=== PATIENT | female | born 1945 | race Caucasian/White ===

== ENCOUNTER 2016-09-08 12:19 | Inpatient (IN) ==
--- NOTE | 2016-09-08 12:22 | Emergency Department Report ---
Psych HPI - General Stated Complaint: psych screening-stiff and humming Time Seen by Provider: 09/08/16 12:22 Source: EMS, RN notes reviewed, old records reviewed Mode of arrival: EMS Limitations: altered mental status - History of Present Illness HPI Narrative: Patient is a 70-year-old female presents emergency department for evaluation of homing rigidity. Patient history of schizophrenia, apparently has episodes where she becomes unresponsive and rigid and just homes constantly to herself. [facility] states that she's been in the assisted for approximately 30 years and happens off and on, however sometimes patient can do this for up to 2- 3 days. Patient apparently is due to have a Holter monitor due to questionable irregularity of heart rate, patient was "stressed", and then was seen normally at 6:30 this morning and was found lying on a pillow on the floor at 9:30 in this state state. It was decided to send patient for evaluation for generations admit. MD complaint: altered mental status Onset (ago): hour(s) Duration: constant - Related Data Home Medications Medication Instructions Recorded Confirmed Benztropine Mesylate 1 mg PO BID #0 08/19/12 09/08/16 Docusate Sodium [Colace] 100 mg PO BID #0 08/19/12 09/08/16 Quetiapine Fumarate 100 mg PO BID #0 08/19/12 09/08/16 Simvastatin 20 mg PO HS #0 08/19/12 09/08/16 clonazePAM [Clonazepam] 1 mg PO BID #0 08/19/12 09/08/16 raNITIdine HCl [Ranitidine HCl] 150 mg PO DAILY #0 08/19/12 09/08/16 risperiDONE [Risperidone] 4 mg PO BID #0 08/19/12 09/08/16 Acetaminophen 650 mg PO Q4HR PRN 09/08/16 09/08/16 Ascorbate Calcium [Vitamin C] 500 mg PO DAILY 09/08/16 09/08/16 Calcium Carbonate [[id number]] 500 mg PO DAILY 09/08/16 09/08/16 ClonazePAM [Klonopin] 1 mg PO PRN PRN 09/08/16 09/08/16 Guaifenesin Oral Liq [Robitussin] 5 ml PO Q6HR PRN 09/08/16 09/08/16 Loratadine [Claritin] 10 mg PO DAILY PRN 09/08/16 09/08/16 Mag Hydrox/Aluminum Hyd/Simeth 30 ml PO PRN PRN 09/08/16 09/08/16 [Maalox Advanced Suspension] Metformin [Glucophage] 500 mg PO BID 09/08/16 09/08/16 Milk of Magnesia [Mom] 30 ml PO DAILY PRN 09/08/16 09/08/16 Multivit,Calc,Mins/Iron/Folic 1 tab PO DAILY 09/08/16 09/08/16 [Thera-M Tablet] Vit D3/Folic Acid/B2/B6/B12 1 tab PO DAILY 09/08/16 09/08/16 [Folgard Tablet] Allergies Allergy/AdvReac Type Severity Reaction Status Date / Time No Known Allergies Allergy Unknown Verified 08/19/12 11:04 Review of Systems Limitations: ROS unobtainable due to patient's medical condition PFSH Patient Stated Medical History Cataracts Yes Gastroesophageal Reflux Yes Disease Schizophrenia Yes Physical Exam - Limitations Limitations: altered mental status - Normal Exams: Head:: Normocephalic without trauma - Eye Eye exam: Present: normal appearance, PERRL - Neck Neck exam: Present: normal inspection - Chest Chest inspection: Present: normal inspection, symmetric chest wall rise. Absent : tenderness - Respiratory Respiratory exam: Present: normal lung sounds bilaterally. Absent: respiratory distress, wheezes, stridor - Cardiovascular Cardiovascular exam: Present: regular rate, normal rhythm. Absent: bradycardia , tachycardia, irregular rhythm - Abdominal Exam Abdominal exam: Present: soft, normal bowel sounds. Absent: distention - Skin Skin exam: Present: warm, dry - Neurological Exam Neurological exam: Absent: alert Course Vital Signs Temperature 98.9 F 09/08/16 12:20 Pulse Rate 89 09/08/16 12:20 Respiratory Rate 32 H 09/08/16 12:20 Blood Pressure 137/63 09/08/16 12:20 Pulse Oximetry 95 09/08/16 12:20 Temperature 98.9 F 09/08/16 12:20 Pulse Rate 88 09/08/16 14:30 Respiratory Rate 32 H 09/08/16 12:20 Blood Pressure 141/102 H 09/08/16 13:01 Pulse Oximetry 91 09/08/16 14:30 Psych - Differential Diagnosis Likely: acute psychosis, chronic schizophrenia, drug-induced psychotic disorder , acute anxiety - Medical Records Attestation: I reviewed the patient's medical records. - Lab Data Attestation: I reviewed the patient's lab results. Result diagrams: 09/08/16 12:54 09/08/16 12:54 Lab Results 09/08/16 09/08/16 09/08/16 Range/Units 12:54 12:54 14:13 WBC 11.0 (4.5-11.0) T/MM3 RBC 4.27 (4.00-5.20) M/MM3 Hgb 13.9 (12-16) GM/DL Hct 40.8 (36-46) % MCV 95.6 (80-100) UM3 MCH 32.6 (26-34) UUG MCHC 34.1 (31-37) GM/DL RDW Std Deviation 42.9 (36.9-50.2) FL Plt Count 251 (130-400) T/MM3 MPV 10.1 (9.4-12.4) UM3 Immature Gran % (Auto) Not performed Neut % (Auto) Not performed Lymph % (Auto) Not performed [place]hen[place] % (Auto) Not performed Eos % (Auto) Not performed Baso % (Auto) Not performed Neut # Not performed Lymph # Not performed Mchenry # Not performed Baso # Not performed Abs Immat Gran (auto) Not performed Neutrophils % (Manual) 86.0 H (33-66) % Band Neutrophils % 2.0 (0-6) % Lymphocytes % (Manual) 11.0 L (23-45) % Monocytes % (Manual) 1.0 (0-9.0) % Neutrophils # (Manual) 9.5 H (1.8-7.7) T/MM3 Band Neutrophils # 0.2 T/MM3 Lymphocytes # (Manual) 1.2 (1-4.8) T/MM3 Monocytes # (Manual) 0.1 (0-0.8) T/MM3 RBC Morph Comment Normal Turbidity < 20 (0-20) Sodium 143 (134-144) MEQ/L Potassium 3.8 (3.6-5) MEQ/L Chloride 108 H (98-107) MEQ/L Carbon Dioxide 24 (22-30) MEQ/L Anion Gap 11 (5-15) MEQ/L BUN 15.0 (7-17) MG/DL Creatinine 0.6 L (0.7-1.2) MG/DL GFR Calculation 99 BUN/Creatinine Ratio 25 (6-26) RATIO Glucose 111 H (65-110) MG/DL Calculated Osmolality 277 (261-280) MOSM/KG Calcium 8.9 (8.4-10.2) MG/DL Total Bilirubin 0.40 (0.20-1.30) MG/DL Icterus Index < 2 (0-7) AST 27 (14-36) U/L ALT 38 (9-52) U/L Alkaline Phosphatase 97 (38-126) U/L Total Protein 7.0 (6.3-8.2) G/DL Albumin 4.1 (3.5-5.0) G/DL Globulin 2.9 (2.4-3.6) G/DL Albumin/Globulin Ratio 1.4 (1.1-2.2) RATIO Specimen Hemolysis < 15 (0-25) Ur Collection Type Urine, clean catch Urine Color Yellow (YELLOW) Urine Clarity Clear Urine pH 6.5 (5.0-8.0) Ur Specific [place] 1.020 (1.015-1.025) Urine Protein Negative (NEGATIVE) Urine Glucose (UA) Negative (NEGATIVE) Urine Ketones 1+ A (NEGATIVE) Urine Occult Blood Negative (NEGATIVE) Urine Nitrate Negative (NEGATIVE) Urine Bilirubin Negative (NEGATIVE) Urine Urobilinogen 0.2 (NORMAL) EU/DL Ur Leukocyte Esterase Negative (NEGATIVE) Urinalysis Comment Microscopic not ind. - Radiology Data Attestation: I reviewed the patient's radiology results. CT head without contrast: Normal Two-view chest x-ray, foreign body left breast chronic - ECG Data Tracing #1 Normal rhythm, normal axis, normal rate, normal intervals, no acute ST elevations Disposition Clinical Impression: Chronic schizophrenia Disposition: 66 To [facility] [place] [facility] Condition: Stable Prescriptions: No Action raNITIdine HCl [Ranitidine HCl] 150 mg PO DAILY #0 clonazePAM [Clonazepam] 1 mg PO BID #0 risperiDONE [Risperidone] 4 mg PO BID #0 Quetiapine Fumarate 100 mg PO BID #0 Guaifenesin Oral Liq [Robitussin] 5 ml PO Q6HR PRN PRN Reason: Cough Acetaminophen 650 mg PO Q4HR PRN PRN Reason: Pain Milk of Magnesia [Mom] 30 ml PO DAILY PRN PRN Reason: Constipation Loratadine [Claritin] 10 mg PO DAILY PRN PRN Reason: Allergy Symptoms ClonazePAM [Klonopin] 1 mg PO PRN PRN PRN Reason: Agitation Calcium Carbonate [[id number]-[id number]] 500 mg PO DAILY Vit D3/Folic Acid/B2/B6/B12 [Folgard Tablet] 1 tab PO DAILY Benztropine Mesylate 1 mg PO BID #0 Docusate Sodium [Colace] 100 mg PO BID #0 Simvastatin 20 mg PO HS #0 Ascorbate Calcium [Vitamin C] 500 mg PO DAILY Metformin [Glucophage] 500 mg PO BID Multivit,Calc,Mins/Iron/Folic [Thera-M Tablet] 1 tab PO DAILY Mag Hydrox/Aluminum Hyd/Simeth [Maalox Advanced Suspension] 30 ml PO PRN PRN PRN Reason: Gastrointestinal Upset Referrals: Everette Mclean [Primary Care Provider] - Time of Disposition: 15:28 - Seen By: physician
[2016-09-08] MEDS ORDERED: HALOPERIDOL 5 MG TABLET PO ONE (12:35)
[2016-09-08] MEDS ORDERED: HALOPERIDOL 5 MG/ML INJECTION IM ONE (12:42)
--- NOTE | 2016-09-08 13:41 | CT Scan Report ---
Indication: acutely altered mental status question fall PROCEDURE: CT head/brain wo con: Encounter: Initial Comparison: Head CT dated August 19, 2012 Technique: Axial CT images through the head were performed without contrast. Iterative Reconstruction dose reducing technique was utilized. FINDINGS: The ventricles are of normal size, shape, and contour for the patient's age. There are scattered areas of low attenuation in the white matter which most likely represent changes from chronic microvascular ischemia. The brainstem, cerebellum, and cerebral hemispheres otherwise have a normal morphology and CT attenuation. There is no evidence of midline displacement. No hemorrhage, signs of acute territorial stroke, mass effect, mass lesions, or edema is evident. The visualized portions of the skull base, midface, and calvarium demonstrate no acute abnormality. Hyperostosis frontalis interna. The paranasal sinuses are well aerated and free of significant disease. The tympanic and mastoid cavities appear normal. IMPRESSION: No acute intracranial abnormality or hemorrhage. .
--- NOTE | 2016-09-08 14:10 | XRay Report ---
INDICATION: question foreign body PROCEDURE: CHEST 2-VIEWS UPRIGHT (PA & LAT) Encounter: Initial COMPARISON: Chest x-ray dated August 19, 2012 FINDINGS: Lungs show evidence of emphysema. No consolidative pneumonia, pleural effusion or pneumothorax. Heart size and mediastinal contours are stable. Pulmonary vascularity is normal. Severe degenerative change in the left shoulder. Linear metallic foreign body apparently representing a nail is again seen projecting over the left chest. This measures 2.8 cm in length and is seen within the subcutaneous tissues on the lateral view. This is stable in size and appearance dating back to 2012. Impression: Metallic foreign body in the subcutaneous tissues of the left chest wall, grossly unchanged since 2012. .
[2016-09-08] MEDS ORDERED: LORazepam 0.5 MG TABLET PO PRN ×2 (17:08→17:36)
[2016-09-08] MEDS ORDERED: HALOPERIDOL 0.5 MG TABLET PO PRN (17:08)
[2016-09-08] MEDS ORDERED: HALOPERIDOL 5 MG/ML INJECTION IM PRN (17:08)
[2016-09-08] MEDS ORDERED: LORATADINE 10 MG TABLET PO PRN (17:33)
[2016-09-08] MEDS ORDERED: GUAIFENESIN 200mg/10ml ORAL LIQUID PO PRN (17:33)
[2016-09-08] MEDS ORDERED: MAG-AL + SIM ORAL LIQUID 30ml PO PRN (17:33)
[2016-09-08] MEDS: DOCUSATE SODIUM 100 MG CAPSULE PO SCH (21:26)
[2016-09-08] MEDS: METFORMIN 500 MG TABLET PO SCH (21:26)
[2016-09-08] MEDS: BENZTROPINE 1 MG TABLET PO SCH (21:26)
[2016-09-08] MEDS: RisperiDONE 2 MG TABLET PO SCH (21:27)
[2016-09-08] MEDS: ClonazePAM 1 MG TABLET PO SCH (21:27)
[2016-09-09] MEDS ORDERED: ACETAMINOPHEN 650 MG SUPPOSITORY PR PRN (05:26)
[2016-09-09] MEDS ORDERED: FUROSEMIDE 20 MG TABLET PO SCH (09:00)
[2016-09-09] MEDS ORDERED: ASCORBIC ACID 500 MG TABLET PO SCH (09:00)
[2016-09-09] MEDS ORDERED: MAG-AL + SIM ORAL LIQUID 30ml PO PRN (10:39)
--- NOTE | 2016-09-09 11:11 | History & Physical Report ---
<Jessica Bellamy - Last Filed: 09/09/16 11:08> History of Present Illness Date: 09/09/16 Chief complaint: decreased mental status HPI: Cherelle Bone is a 70-year-old woman who was admitted to [facility] on for catatonia. She has a history of schizophrenia and has had episodes in which she becomes unresponsive and rigid. These episodes have occurred intermittently for the last 30 years, but sometimes he states can last up to 3 days. In the morning of 09/08/16, she was found to be in her catatonic-type state , and was sent to [facility] for medical clearance and admission to [facility]. She was seen initially in the emergency department. CBC was normal , however, she did have a predominance of neutrophils at 86%. Complete metabolic profile was essentially unremarkable. Her TSH was actually low at 0.30 - levothyroxine was not identified on her medication list. Urinalysis showed 1+ ketones, but no UTI. Chest x-ray showed emphysema, degenerative changes in the left shoulder, and a chronic metallic foreign body in the left chest wall, which has been present since 2012. No noted acute pulmonary pathology. Head CT was negative for intracranial abnormality or hemorrhage. With her medical clearance, she was accepted to [facility]. She was seen by the hospitalist team on 09/09/16. She was lying in bed with her brows furloughed. Occasionally, she would moan but she did not answer anything spontaneously or follow any commands. She resisted and closed her eyes tight when I try to examine her pupils. Obviously, review of systems and history of present illness was severely limited. Nurses report that she has removed her clothing and does not tolerate blankets covering her up. 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 Family History: Unobtainable from patient Not documented in previous documents - Social History Smoking status: Unknown if ever smoked Substance use type: does not use Alcohol intake frequency: does not drink Current residence: Detention Medications Home Medications Medication Instructions Recorded Confirmed Type Benztropine Mesylate 1 mg PO BID #0 08/19/12 09/08/16 History Docusate Sodium [Colace] 200 mg PO BID #0 08/19/12 09/09/16 History Quetiapine Fumarate 100 mg PO BID #0 08/19/12 09/08/16 History Simvastatin 20 mg PO HS #0 08/19/12 09/08/16 History clonazePAM [Clonazepam] 1 mg PO DAILY #0 08/19/12 09/09/16 History raNITIdine HCl [Ranitidine HCl] 150 mg PO DAILY #0 08/19/12 09/08/16 History risperiDONE [Risperidone] 4 mg PO BID #0 08/19/12 09/08/16 History Acetaminophen 650 mg PO Q4HR PRN 09/08/16 09/08/16 History Ascorbate Calcium [Vitamin C] 500 mg PO BID 09/08/16 09/09/16 History Calcium Carbonate [[id number]-[id number]] 500 mg PO DAILY 09/08/16 09/08/16 History ClonazePAM [Klonopin] 1 mg PO PRN PRN 09/08/16 09/08/16 History Furosemide [Lasix] 1 tab PO QMWF 09/08/16 09/08/16 History Guaifenesin Oral Liq [Robitussin] 5 ml PO Q6HR PRN 09/08/16 09/08/16 History Loratadine [Claritin] 10 mg PO DAILY PRN 09/08/16 09/08/16 History Mag Hydrox/Aluminum Hyd/Simeth 30 ml PO Q4H PRN 09/08/16 09/09/16 History [Maalox Advanced Suspension] Metformin [Glucophage] 500 mg PO BIDWM 09/08/16 09/09/16 History Milk of Magnesia [Mom] 30 ml PO DAILY PRN 09/08/16 09/08/16 History Multivit,Calc,Mins/Iron/Folic 1 tab PO DAILY 09/08/16 09/08/16 History [Thera-M Tablet] Cholecalciferol (Vitamin D3) 2 cap PO DAILY 09/09/16 09/09/16 History [Vitamin D3] Allergies Allergy/AdvReac Type Severity Reaction Status Date / Time No Known Allergies Allergy Unknown Verified 08/19/12 11:04 Exam Vital Signs: Temp Pulse Resp BP Pulse Ox 98.6 F 80 16 148/67 H 90 09/09/16 08:00 06/14/17 08:00 09/09/16 08:00 09/09/16 08:00 09/09/16 08:00 Height: 1.7 m Weight: 72.1 kg Body Mass Index: 24.9 - Constitutional Present: other (patient is verbally unresponsive, does not follow commands. Occasionally, she moans. She was lying naked in bed, and a blanket was placed on top of her.) - Routine HEENT Exam Head: Present: normocephalic, atraumatic ENT: Present: mucous membranes dry (unable to inspect mucous membranes fully, but from what I could tell from her lips and the anterior portion of her tongue , she was dry) Comments: I was unable to easily open her eyes to examine conjunctivae and pupillary response because she closed her eyes tighter. - Routine Neck Exam Present: supple - Routine Respiratory Exam Present: CTA bilaterally - Routine Cardiovascular Exam Present: RRR, S1, S2 - Routine Abdominal Exam Present: soft, normoactive bowel sounds, non distended, non tender - Routine Extremities Exam Present: no edema, pulses intact, normal capillary refill - Routine Skin Exam Present: intact, dry, warm - Routine Neurological Exam Present: altered mental status. Absent: alert, oriented X3 - Routine Psychiatric Exam Present: unable to assess Results - Labs CBC & Chem 7: 09/08/16 12:54 09/08/16 12:54 Assessment and Plan (1) Dehydration Current visit: Yes Status: Acute (2) Chronic schizophrenia Current visit: Yes Status: Chronic (3) Type 2 diabetes mellitus Current visit: Yes Status: Chronic Assessment and Plan: Agree with admission to [facility]. Continue with obtaining [facility] workup. Labs and images reviewed. She appears slightly dehydrated, at least based on urine sample. Will hold Lasix since she is not taking in fluids currently. Hold Glucophage since she is not eating; monitor sugars. If she does not begin taking in oral fluids today, would recommend placement of an IV with continuous IV fluids. Check BMP tomorrow morning. Discussed with nursing staff. They will inquire about starting treatment protocol for catatonia. Provide safe environment. Thank you for this consult - we will follow Cherelle along with you during her [place] course. Sepsis Assessment - Evaluation Sepsis screening result: No Definite Risk - Focused Exam Vital Signs Temp Pulse Resp BP Pulse Ox 09/09/16 08:00 98.6 F 80 16 148/67 H 90 Hospital Course Summary Disclaimer: The visit summary below is not to be considered part of the above Progress Note. Hospital Course: 09/09/16 11:29 Agree with admission to [facility]. Continue with obtaining [facility] workup. Labs and images reviewed. She appears slightly dehydrated, at least based on urine sample. Will hold Lasix since she is not taking in fluids currently. Hold Glucophage since she is not eating; monitor sugars. If she does not begin taking in oral fluids today, would recommend placement of an IV with continuous IV fluids. Check BMP tomorrow morning. Discussed with nursing staff. They will inquire about starting treatment protocol for catatonia. Provide safe environment. Thank you for this consult - we will follow Cherelle along with you during her [place] course. <Kelsie Rai - Last Filed: 09/09/16 18:46> History of Present Illness Date: 09/09/16 [facility] Patient Stated Medical History Cataracts Yes Gastroesophageal Reflux Yes Disease Schizophrenia Yes Exam Vital Signs: Temp Pulse Resp BP Pulse Ox 98.2 F 72 18 118/66 92 09/09/16 16:54 09/09/16 16:54 09/09/16 16:54 09/09/16 16:54 09/09/16 16:54 Height: 1.7 m Weight: 72.1 kg Results - Labs CBC & Chem 7: 09/08/16 12:54 09/08/16 12:54 Assessment and Plan (1) Chronic schizophrenia Current visit: Yes Status: Chronic (2) Dehydration Current visit: Yes Status: Acute (3) Type 2 diabetes mellitus Current visit: Yes Status: Chronic Assessment and Plan: 09/09/2016-I reviewed this chart, the patient history, and the [employer]'s/PA's documented findings as above. We discussed and formulated the assessment and plan as above with the additions below.-Dr. Rai I came to see the patient earlier this evening. Fortunately, she had awoken and was feeling well. She was sitting up in bed eating her supper. She denied any complaints except being hungry. She denies any headache, chest pain or abdominal pain. She denied any shortness of breath or lightheadedness. She stated she just wanted to eat. I spoke with her nurse and she stated that the patient's symptoms improved without any treatment. On exam the patient is alert and in no acute distress. HEENT reveals sclerae to be anicteric and pupils are equal. Oropharynx is moist. Neck is supple. Chest is clear to auscultation. Cardiovascular reveals a regular rate and rhythm. Abdomen is soft and nontender with positive bowel sounds. Extremities are free of edema. On neurologic exam the patient is alert and in no acute distress. She moves all 4 extremities on command Fortunately, the patient is no longer catatonic. Would recommend discontinuation of IV fluids 1 current bag is empty or if she is refusing, IV fluids can be stopped. We'll monitor Accu-Cheks. We will continue to follow along with you. For this consultation. Sepsis Assessment - Focused Exam Vital Signs Temp Pulse Resp BP Pulse Ox 09/09/16 16:54 98.2 F 72 18 118/66 92 09/09/16 16:00 98.2 F 72 18 118/66 92 09/09/16 08:00 98.6 F 80 16 148/67 H 90 Hospital Course Summary Disclaimer: The visit summary below is not to be considered part of the above Progress Note.
[2016-09-09] MEDS: CALCIUM CARBONATE 500 MG TABLET PO SCH (12:42)
[2016-09-09] MEDS: BENZTROPINE 1 MG TABLET PO SCH ×2 (12:42→21:56)
[2016-09-09] MEDS: METFORMIN 500 MG TABLET PO SCH (12:42)
[2016-09-09] MEDS: FOLBIC TABLET PO SCH (12:43)
[2016-09-09] MEDS: MULTI-VITAMIN + MINERAL TABLET PO SCH (12:43)
[2016-09-09] MEDS: RisperiDONE 2 MG TABLET PO SCH ×2 (12:43→21:56)
[2016-09-09] MEDS: ClonazePAM 1 MG TABLET PO SCH (12:44)
[2016-09-09] MEDS: DOCUSATE SODIUM 100 MG CAPSULE PO SCH ×2 (12:44→21:56)
[2016-09-09] MEDS: NS 1,000 ML IV SCH (15:15)
[2016-09-09] MEDS: ASCORBIC ACID 500 MG TABLET PO SCH (21:56)
[2016-09-09] MEDS ORDERED: RANITIDINE 150 MG TABLET PO SCH (22:00)
--- NOTE | 2016-09-09 22:21 | 24 Hour Neuropsychiatic Eval ---
Date of Admission: 09/08/16 15:33 Chief complaint: Suspected catatonia History of Present Illness: Patient is a 70-year-old female admitted to [facility] on with catatonia-like features, sent from her NH. Per reports, patient laid in bed and did not respond to attempts at interview, refused PO meds/food, etc. upon admission. Hospitalist was consulted and started IV fluids on 09/09, Rice was placed for urinary retention as well. This evening when I attempted to see her, patient was sitting up in bed and greeted me with a bright affect, shaking hands and pleasantly making conversation. She was oriented to self only, stating we are [place]." She reported feeling well physically as well as emotionally. She denied SI , HI, AVH, paranoia. She stated she felt she could try to take meds or eat now. Patient states odd things such as she's had "quite a rugged time the alst few years" but says she just needed a rest and couldn't stand the bright lights in the other hospital. 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 Family History: Unable to obtain currently - Social History Smoking status: Unknown if ever smoked Housing: intermediate Current residence: Jail Social history: States she does not have any children Review of Systems ROS unobtainable: due to mental status (Denies pain or feeling physically uncomfortable anyway, no stiffness/rigidity appreciated upon physical exam) Mental Status Exam Vitals: Last Vital Signs Temp 98.5 F 09/09/16 20:52 Pulse 76 09/09/16 20:52 Resp 18 09/09/16 20:52 BP 131/73 09/09/16 20:52 Pulse Ox 94 09/09/16 20:52 Height: 1.7 m Weight: 72.1 kg - Mental Status Exam Muscle Strength/Tone: Normal Dressing: Casual Grooming: Disheveled Attitude: Cooperative (intermittent) Motor Activity: Other (intermittent - earlier appeared catatonic, fidgety with legs at tie of interview) Eye Contact: Other (intermittent - good upon later interview) Speech: Normal Volume: Normal Rhythm: Appropriate Rhythm Orientation: Disoriented to time, Disoriented to place, Disoriented to situation , Oriented to person Mood: Euthymic Rate of Thoughts: Appropriate Rate Thought Organization: Disorganized Associations: Illogical Abstract Reasoning: Impaired, concrete Thought Content: Hyper-religiosity (suspected), Other (Denies paranoia) Perception/Psychotic: Other (unclear at this point though patient denies) Language: Naming Intact Fund of Knowledge: Other (Decreased) Memory: Poor-immediate, Poor-recent, Poor-remote Suicidal Ideation: Denies Homicidal Ideation: Denies Insight: Impaired Judgement: Impaired Impulse Control: Poor - Laboratory Result Diagrams: 09/08/16 12:54 09/08/16 12:54 Laboratory Results - last 24 hr 09/09/16 09/09/16 09/09/16 06:28 10:18 14:43 Glucometer 110 109 95 09/09/16 20:31 Glucometer 86 Assessment and Plan (1) Schizophrenia spectrum disorder with psychotic disorder type not yet determined Current visit: Yes Status: Chronic r/o Neurocognitive disorder (2) Dehydration Current visit: Yes Status: Acute (3) Type 2 diabetes mellitus Current visit: Yes Status: Chronic Held Seroquel upon admission, continued Risperdal as well as other medications. Maintain safety/elopement precautions. Hospitalist consulted for management of medical comorbidities. Review labs from admission. Monitor patient's mood, behavior and response to treatment. Obtain further collateral if possible.
[2016-09-10] MEDS: SALINE FLUSH 10ml SYRINGE IV PRN ×2 (01:20→18:43)
[2016-09-10] MEDS: NS 1,000 ML IV SCH (01:27)
[2016-09-10] MEDS: BENZTROPINE 1 MG TABLET PO SCH ×3 (08:39→20:16)
[2016-09-10] MEDS: RANITIDINE 150 MG TABLET PO SCH (08:39)
[2016-09-10] MEDS: MULTI-VITAMIN + MINERAL TABLET PO SCH (08:40)
[2016-09-10] MEDS: DOCUSATE SODIUM 100 MG CAPSULE PO SCH ×2 (08:40→20:17)
[2016-09-10] MEDS: CALCIUM CARBONATE 500 MG TABLET PO SCH (08:41)
[2016-09-10] MEDS: ClonazePAM 1 MG TABLET PO SCH (08:43)
[2016-09-10] MEDS: ASCORBIC ACID 500 MG TABLET PO SCH ×2 (08:44→20:19)
[2016-09-10] MEDS: RisperiDONE 2 MG TABLET PO SCH ×2 (08:45→20:18)
[2016-09-10] MEDS: FOLBIC TABLET PO SCH (08:52)
--- NOTE | 2016-09-10 13:23 | Progress Note ---
Subjective: Cherelle was seen during breakfast - she was nearly done eating. She woke up last evening and has been eating and drinking and voiding without problems. Nurses report that she was singing and in good spirits. She's been walking well with a steady gait. Cherelle didn't have much to say this morning but denied any pain or trouble breathing. She stated that her food was good. Objective Vital signs: Temp Pulse Resp BP Pulse Ox 98.2 F 73 16 124/56 95 09/10/16 08:00 09/10/16 08:00 09/10/16 08:00 09/10/16 08:00 09/10/16 08:00 Body Mass Index: 24.9 - Constitutional Present: no acute distress, well nourished, well developed - Routine HEENT Exam ENT: Present: mucous membranes moist - Routine Respiratory Exam Present: CTA bilaterally - Routine Cardiovascular Exam Present: RRR, S1, S2 - Routine Abdominal Exam Present: soft, normoactive bowel sounds, non distended - Routine Extremities Exam Present: no edema, pulses intact, normal capillary refill - Routine Musculoskeletal Exam Musculoskeletal: no clubbing or cyanosis, moving extremities well - Routine Skin Exam Present: intact, dry, warm - Routine Neurological Exam Present: alert, oriented X3 - Routine Psychiatric Exam Present: normal affect Results - Labs CBC & Chem 7: 09/08/16 12:54 09/10/16 04:47 Assessment and Plan (1) Dehydration Current visit: Yes Status: Resolved (2) Chronic schizophrenia Current visit: Yes Status: Chronic (3) Type 2 diabetes mellitus Current visit: Yes Status: Chronic Assessment and Plan: Her catatonic state has resolved and she is able to maintain oral intake and hydration status. Dehydration is improving with oral intake. Her sodium level is minimally elevated, consistent with dehydration. She received 1L of IVF yesterday. Urine retention - required straight catheterization yesterday and had >900 mL urine return. She has been able to void spontaneously now and her post void residual bladder scan was too low to require cath. DM2 - blood sugars are stable. Resume Metformin tomorrow am. HTN - her Lasix has been on hold since she was dehydrated at time of admission. Her BP has been stable. Likely can restart Lasix soon. Dr. Faye's notes reviewed. Sepsis Assessment - Evaluation Sepsis screening result: No Definite Risk - Focused Exam Vital Signs Temp Pulse Resp BP Pulse Ox 09/10/16 08:00 98.2 F 73 16 124/56 95 Respiratory exam: Present: CTA bilaterally Cardiovascular exam: Present: RRR, S1, S2 Hospital Course Summary Disclaimer: The visit summary below is not to be considered part of the above Progress Note. Hospital Course: 09/09/16 11:29 Agree with admission to [facility]. Continue with obtaining [facility] workup. Labs and images reviewed. She appears slightly dehydrated, at least based on urine sample. Will hold Lasix since she is not taking in fluids currently. Hold Glucophage since she is not eating; monitor sugars. If she does not begin taking in oral fluids today, would recommend placement of an IV with continuous IV fluids. Check BMP tomorrow morning. Discussed with nursing staff. They will inquire about starting treatment protocol for catatonia. Provide safe environment. Thank you for this consult - we will follow Cherelle along with you during her [facility] course. 09/10/16 12:40 Her catatonic state has resolved and she is able to maintain oral intake and hydration status. Dehydration is improving with oral intake. Her sodium level is minimally elevated, consistent with dehydration. She received 1L of IVF yesterday. Urine retention - required straight catheterization yesterday and had >900 mL urine return. She has been able to void spontaneously now and her post void residual bladder scan was too low to require cath. DM2 - blood sugars are stable. Resume Metformin tomorrow am. HTN - her Lasix has been on hold since she was dehydrated at time of admission. Her BP has been stable. Likely can restart Lasix soon.
[2016-09-10] MEDS ORDERED: Pharmacy Consult for Fall Risk XX PRN (22:26)
--- NOTE | 2016-09-10 22:50 | Neuropsych Progress Note ---
[facility] Subjective Date: 09/10/16 - Sujective/Severity of Illness Medications: Acetaminophen (Tylenol) 650 mg PO Q4HR PRN PRN Reason: Pain Acetaminophen (Tylenol Supp) 650 mg MA Q5H PRN PRN Reason: Pain Last Admin: 09/09/16 05:29 Dose: 650 mg Al Hydroxide/Mg Hydroxide (Maalox Plus) 30 ml PO Q4H PRN PRN Reason: Indigestion Ascorbic Acid (Vitamin C) 500 mg PO BID [facility] Last Admin: 09/10/16 20:19 Dose: 500 mg Benztropine Mesylate (Cogentin) 1 mg PO BID [facility] Last Admin: 09/10/16 20:16 Dose: 1 mg Calcium Carbonate (Calcium) 500 mg PO DAILY [facility] Last Admin: 09/10/16 08:41 Dose: 500 mg Cholecalciferol (Vitamin D-3) 2,000 unit PO DAILY [facility] Last Admin: 09/10/16 08:44 Dose: 2,000 unit Clonazepam (Klonopin) 1 mg PO DAILY [facility] Last Admin: 09/10/16 08:43 Dose: 1 mg Docusate Sodium (Colace) 200 mg PO BID [facility] Last Admin: 09/10/16 20:17 Dose: 200 mg Folic Acid (Folbic) 1 tab PO DAILY [facility] Last Admin: 09/10/16 08:52 Dose: 1 tab Furosemide (Lasix) 20 mg PO MoWeFr [facility] Last Admin: 09/09/16 12:43 Dose: Not Given Guaifenesin (Robitussin Liq) 100 mg PO Q6HR PRN PRN Reason: Cough Haloperidol (Haldol) 0.5 mg PO Q6H PRN PRN Reason: Extreme agitation Haloperidol Lactate (Haldol) 0.5 mg IM Q6H PRN PRN Reason: Extreme agitation Loratadine (Claritin) 10 mg PO ACB PRN PRN Reason: Allergy symptoms Lorazepam (Ativan) 1 mg PO Q6H PRN PRN Reason: Extreme agitation Lorazepam (Ativan Inj) 1 mg IM Q6H PRN PRN Reason: Extreme agitation Magnesium Hydroxide (Mom) 30 ml PO DAILY PRN PRN Reason: Constipation Metformin HCl (Glucophage) 500 mg PO BIDBS [facility] Last Admin: 09/09/16 12:42 Dose: Not Given Multivitamins/Minerals (Therapeutic - M) 1 tab PO DAILY [facility] Last Admin: 09/10/16 08:40 Dose: 1 tab Pharmacy Consult () each ONE TIME PRN PRN Reason: PRN orders Ranitidine HCl (Zantac) 150 mg PO 0700 [facility] Last Admin: 09/10/16 08:39 Dose: 150 mg Risperidone (Risperdal) 4 mg PO BID [facility] Last Admin: 09/10/16 20:18 Dose: 4 mg Sodium Chloride (Iv Flush) 10 ml IV PRN PRN PRN Reason: Flushing Last Admin: 09/10/16 18:43 Dose: 10 ml Subjective: Patient seen and chart reviewed. Case discussed with treatment team. On interview, patient is pleasant and cooperative. She gives odd answers at times and says "she feels like her mind is still a bit daffy" but has been for a long time and needs some time to get back to 'normal.' Interacts pleasantly with other peers in dayroom. Patient denies any SI, HI or AVH. Patient denies any adverse side effects related to psychotropic medications. Nursing staff report patient gives illogical answers at times, but overall cooperative and pleasant. Not observed responding to internal stimuli. Does require some prompting to engage. Patient slept well overnight in addition to 3.5 hour nap today. VSS. Patient is eating well. Psychotropic PRNs required in the past 24 hours: none. Per hospitalist note 09/10: Her catatonic state has resolved and she is able to maintain oral intake and hydration status. Dehydration is improving with oral intake. Her sodium level is minimally elevated, consistent with dehydration. She received 1L of IVF yesterday. Urine retention - required straight catheterization yesterday and had >900 mL urine return. She has been able to void spontaneously now and her post void residual bladder scan was too low to require cath. DM2 - blood sugars are stable. Resume Metformin tomorrow am. HTN - her Lasix has been on hold since she was dehydrated at time of admission. Her BP has been stable. Likely can restart Lasix soon. Start Time: 18:20 Stop Time: 18:40 Mental Status Exam Vitals: Last Vital Signs Temp 98.2 F 09/10/16 20:17 Pulse 81 09/10/16 20:17 Resp 24 09/10/16 20:17 BP 125/55 09/10/16 20:17 Pulse Ox 94 09/10/16 20:17 Height: 1.7 m Weight: 72.1 kg - Mental Status Exam Muscle Strength/Tone: Normal Dressing: Casual Grooming: Disheveled Attitude: Cooperative (intermittent) Motor Activity: Normal Eye Contact: Fair, Other Speech: Normal Volume: Normal Rhythm: Appropriate Rhythm Orientation: Disoriented to time, Disoriented to place, Disoriented to situation , Oriented to person Mood: Euthymic Rate of Thoughts: Appropriate Rate Thought Organization: Disorganized Associations: Illogical Abstract Reasoning: Impaired, concrete Thought Content: Hyper-religiosity (suspected), Other (Denies paranoia) Perception/Psychotic: Other (unclear at this point though patient denies) Language: Naming Intact Fund of Knowledge: Poor fund of knowledge Memory: Poor-immediate, Poor-recent, Poor-remote Suicidal Ideation: Denies Homicidal Ideation: Denies Insight: Impaired Judgement: Impaired Impulse Control: Poor - Laboratory Result Diagrams: 09/08/16 12:54 09/10/16 04:47 Laboratory Results - last 24 hr 09/09/16 09/10/16 04:59 04:47 Turbidity < 20 Sodium 145 H Potassium 3.6 Chloride 113 H Carbon Dioxide 21 L Anion Gap 11 BUN 20.0 H Creatinine 0.6 L GFR Calculation 99 BUN/Creatinine Ratio 33 H Glucose 99 Calculated Osmolality 282 H Calcium 8.4 Icterus Index < 2 Triglycerides 91 Cholesterol 175 LDL Cholesterol, Calc 109.8 VLDL Cholesterol 18.2 HDL Cholesterol 47 Cholesterol/HDL Ratio 3.7 Specimen Hemolysis < 15 Assessment and Plan (1) Schizophrenia spectrum disorder with psychotic disorder type not yet determined Current visit: Yes Status: Chronic (2) Dehydration Current visit: Yes Status: Resolved (3) Type 2 diabetes mellitus Current visit: Yes Status: Chronic Reason for catatonic-like behavior upon admission unclear (psychiatric vs. behavioral vs. medical) but patient doing better since admission. Continue to monitor for behavioral symptoms or recurrence of catatonia-like state.
[2016-09-11] MEDS: SALINE FLUSH 10ml SYRINGE IV PRN ×2 (01:23→15:02)
[2016-09-11] MEDS: RANITIDINE 150 MG TABLET PO SCH (06:32)
[2016-09-11] MEDS: DOCUSATE SODIUM 100 MG CAPSULE PO SCH ×2 (08:02→21:21)
[2016-09-11] MEDS: CALCIUM CARBONATE 500 MG TABLET PO SCH (08:02)
[2016-09-11] MEDS: FOLBIC TABLET PO SCH (08:03)
[2016-09-11] MEDS: ClonazePAM 1 MG TABLET PO SCH (08:03)
[2016-09-11] MEDS: RisperiDONE 2 MG TABLET PO SCH ×2 (08:03→21:21)
[2016-09-11] MEDS: MULTI-VITAMIN + MINERAL TABLET PO SCH (08:04)
[2016-09-11] MEDS: ASCORBIC ACID 500 MG TABLET PO SCH ×2 (08:04→21:38)
[2016-09-11] MEDS: BENZTROPINE 1 MG TABLET PO SCH ×2 (08:05→21:21)
[2016-09-11] MEDS: ACETAMINOPHEN 325 MG TABLET PO PRN (14:21)
--- NOTE | 2016-09-11 15:04 | Progress Note ---
Subjective: Cherelle was resting sideways in a recliner in the day room. She easily awakened, and smiled. She states that she is feeling well. She denies any pain, trouble breathing, or abdominal complaints. Staff report that she has been pleasant and cooperative. She has been eating well overall. Objective Vital signs: Temp Pulse Resp BP Pulse Ox 97.5 F 76 14 106/61 95 09/11/16 08:00 09/11/16 08:00 09/11/16 08:00 09/11/16 08:00 09/11/16 08:00 Body Mass Index: 24.9 - Constitutional Present: no acute distress, well nourished, well developed - Routine HEENT Exam ENT: Present: mucous membranes moist - Routine Respiratory Exam Present: CTA bilaterally - Routine Cardiovascular Exam Present: RRR, S1, S2 - Routine Abdominal Exam Present: soft, normoactive bowel sounds, non distended, non tender - Routine Extremities Exam Present: no edema, pulses intact, normal capillary refill - Routine Back/Spine/Pelvis Exam Back/Spine: Absent: CVA tenderness - Routine Musculoskeletal Exam Musculoskeletal: no clubbing or cyanosis, no erythera - Routine Skin Exam Present: intact, dry, warm - Routine Neurological Exam Present: alert - Routine Psychiatric Exam Present: normal affect Results - Labs CBC & Chem 7: 09/08/16 12:54 09/10/16 04:47 Assessment and Plan (1) Dehydration Current visit: Yes Status: Resolved (2) Chronic schizophrenia Current visit: Yes Status: Chronic (3) Type 2 diabetes mellitus Current visit: Yes Status: Chronic Assessment and Plan: TSH is slightly low at 0.30. Check free T4. Hypernatremia is mild at 145. Anticipate this will continue to improve since she is eating and drinking well. Will recheck labs tomorrow morning. Plan on resuming Lasix which is given Wednesday, Wednesday and Wednesday - start on . Blood sugars have not been hypoglycemic since turning. Metformin. In fact, she has had 2 elevated readings over 200. We'll change her diet to consistent carbohydrate. Psychiatric notes reviewed. Sepsis Assessment - Evaluation Sepsis screening result: No Definite Risk - Focused Exam Vital Signs Temp Pulse Resp BP Pulse Ox 09/11/16 08:00 97.5 F 76 14 106/61 95 Respiratory exam: Present: CTA bilaterally Cardiovascular exam: Present: RRR, S1, S2 Hospital Course Summary Disclaimer: The visit summary below is not to be considered part of the above Progress Note. Hospital Course: 09/09/16 11:29 Agree with admission to [facility]. Continue with obtaining [facility] workup. Labs and images reviewed. She appears slightly dehydrated, at least based on urine sample. Will hold Lasix since she is not taking in fluids currently. Hold Glucophage since she is not eating; monitor sugars. If she does not begin taking in oral fluids today, would recommend placement of an IV with continuous IV fluids. Check BMP tomorrow morning. Discussed with nursing staff. They will inquire about starting treatment protocol for catatonia. Provide safe environment. Thank you for this consult - we will follow Cherelle along with you during her [facility] course. 09/10/16 12:40 Her catatonic state has resolved and she is able to maintain oral intake and hydration status. Dehydration is improving with oral intake. Her sodium level is minimally elevated, consistent with dehydration. She received 1L of IVF yesterday. Urine retention - required straight catheterization yesterday and had >900 mL urine return. She has been able to void spontaneously now and her post void residual bladder scan was too low to require cath. DM2 - blood sugars are stable. Resume Metformin tomorrow am. HTN - her Lasix has been on hold since she was dehydrated at time of admission. Her BP has been stable. Likely can restart Lasix soon. 09/11/16 15:04 TSH is slightly low at 0.30. Check free T4. Hypernatremia is mild at 145. Anticipate this will continue to improve since she is eating and drinking well. Will recheck labs tomorrow morning. Plan on resuming Lasix which is given Wednesday, Wednesday and Wednesday - start on . Blood sugars have not been hypoglycemic since turning. Metformin. In fact, she has had 2 elevated readings over 200. We'll change her diet to consistent carbohydrate. Psychiatric notes reviewed.
[2016-09-11] MEDS: METFORMIN 500 MG TABLET PO SCH (17:36)
--- NOTE | 2016-09-11 21:39 | Neuropsych Progress Note ---
[facility] Subjective Date: 09/12/16 - Sujective/Severity of Illness Medications: Acetaminophen (Tylenol) 650 mg PO Q4HR PRN PRN Reason: Pain Last Admin: 09/11/16 14:21 Dose: 650 mg Acetaminophen (Tylenol Supp) 650 mg DC Q5H PRN PRN Reason: Pain Last Admin: 09/09/16 05:29 Dose: 650 mg Al Hydroxide/Mg Hydroxide (Maalox Plus) 30 ml PO Q4H PRN PRN Reason: Indigestion Ascorbic Acid (Vitamin C) 500 mg PO BID [facility] Last Admin: 09/11/16 21:38 Dose: 500 mg Benztropine Mesylate (Cogentin) 1 mg PO BID [facility] Last Admin: 09/11/16 21:21 Dose: 1 mg Calcium Carbonate (Calcium) 500 mg PO DAILY [facility] Last Admin: 09/11/16 08:02 Dose: 500 mg Cholecalciferol (Vitamin D-3) 2,000 unit PO DAILY [facility] Last Admin: 09/11/16 08:04 Dose: 2,000 unit Clonazepam (Klonopin) 1 mg PO DAILY [facility] Last Admin: 09/11/16 08:03 Dose: 1 mg Docusate Sodium (Colace) 200 mg PO BID [facility] Last Admin: 09/11/16 21:21 Dose: 200 mg Folic Acid (Folbic) 1 tab PO DAILY [facility] Last Admin: 09/11/16 08:03 Dose: 1 tab Furosemide (Lasix) 20 mg PO MoWeFr [facility] Last Admin: 09/09/16 12:43 Dose: Not Given Guaifenesin (Robitussin Liq) 100 mg PO Q6HR PRN PRN Reason: Cough Haloperidol (Haldol) 0.5 mg PO Q6H PRN PRN Reason: Extreme agitation Haloperidol Lactate (Haldol) 0.5 mg IM Q6H PRN PRN Reason: Extreme agitation Loratadine (Claritin) 10 mg PO ACB PRN PRN Reason: Allergy symptoms Lorazepam (Ativan) 1 mg PO Q6H PRN PRN Reason: Extreme agitation Lorazepam (Ativan Inj) 1 mg IM Q6H PRN PRN Reason: Extreme agitation Magnesium Hydroxide (Mom) 30 ml PO DAILY PRN PRN Reason: Constipation [facility] Admin: 09/11/16 17:36 Dose: 500 mg Multivitamins/Minerals (Therapeutic - M) 1 tab PO DAILY [facility] Last Admin: 09/11/16 08:04 Dose: 1 tab Pharmacy Consult () 1 each XX ONE TIME PRN PRN Reason: PRN orders Ranitidine HCl (Zantac) 150 mg PO 0700 [facility] Last Admin: 09/11/16 06:32 Dose: 150 mg Risperidone (Risperdal) 4 mg PO BID [facility] Last Admin: 09/11/16 21:21 Dose: 4 mg Sodium Chloride (Iv Flush) 10 ml IV PRN PRN PRN Reason: Flushing Last Admin: 09/11/16 15:02 Dose: 10 ml Subjective: Patient seen and chart reviewed. Case discussed with treatment team. On interview, patient is napping lightly in dayroom. She is pleasant and cooperative but reportedly did not sleep at all the night prior. She sings at times and has been in a very good mood per staff. Makes episcopalian and disorganized statements at times - suspect marion but will continue to monitor as patient is now appearing sleepy. Patient denies any SI, HI or AVH. Patient denies any adverse side effects related to psychotropic medications. VSS. Patient is eating well. Psychotropic PRNs required in the past 24 hours: none. Start Time: 19:20 Stop Time: 19:40 Mental Status Exam Vitals: Last Vital Signs Temp 97.6 F 09/11/16 16:00 Pulse 71 09/11/16 16:00 Resp 16 09/11/16 16:00 BP 107/51 09/11/16 16:00 Pulse Ox 93 09/11/16 16:00 Height: 1.7 m Weight: 72.1 kg - Mental Status Exam Muscle Strength/Tone: Normal Dressing: Casual Grooming: Disheveled Attitude: Cooperative (intermittent) Motor Activity: Normal Eye Contact: Fair, Other Speech: Normal Volume: Normal Rhythm: Appropriate Rhythm Orientation: Disoriented to time, Disoriented to place, Disoriented to situation , Oriented to person Mood: Euthymic Rate of Thoughts: Appropriate Rate Thought Organization: Disorganized Associations: Illogical Abstract Reasoning: Impaired, concrete Thought Content: Hyper-religiosity (suspected), Other (Denies paranoia) Perception/Psychotic: Other (unclear at this point though patient denies) Language: Naming Intact Fund of Knowledge: Poor fund of knowledge Memory: Poor-immediate, Poor-recent, Poor-remote Suicidal Ideation: Denies Homicidal Ideation: Denies Insight: Impaired Judgement: Impaired Impulse Control: Fair - Laboratory Result Diagrams: 09/08/16 12:54 09/12/16 06:16 Laboratory Results - last 24 hr 09/09/16 09/10/16 09/10/16 04:59 15:59 19:25 Glucometer 140 225 Vitamin B12 671 Folate > 20.0 H 09/11/16 09/11/16 09/11/16 04:58 10:07 14:48 Glucometer 110 154 200 Vitamin B12 Folate 09/11/16 20:39 Glucometer 137 Vitamin B12 Folate Assessment and Plan (1) Schizophrenia spectrum disorder with psychotic disorder type not yet determined Current visit: Yes Status: Chronic (2) Dehydration Current visit: Yes Status: Resolved (3) Type 2 diabetes mellitus Current visit: Yes Status: Chronic Patient eating well, no behavioral difficulties - but did not sleep last night. Continue to monitor and r/o current manic episode despite being on Risperdal 4mg BID.
[2016-09-12] MEDS: RANITIDINE 150 MG TABLET PO SCH (06:22)
[2016-09-12] MEDS: METFORMIN 500 MG TABLET PO SCH ×2 (08:31→17:13)
[2016-09-12] MEDS: CALCIUM CARBONATE 500 MG TABLET PO SCH (08:31)
[2016-09-12] MEDS: DOCUSATE SODIUM 100 MG CAPSULE PO SCH ×2 (08:31→21:53)
[2016-09-12] MEDS: BENZTROPINE 1 MG TABLET PO SCH ×2 (08:31→21:53)
[2016-09-12] MEDS: FOLBIC TABLET PO SCH (08:32)
[2016-09-12] MEDS: MULTI-VITAMIN + MINERAL TABLET PO SCH (08:32)
[2016-09-12] MEDS: RisperiDONE 2 MG TABLET PO SCH ×2 (08:32→21:51)
[2016-09-12] MEDS: ASCORBIC ACID 500 MG TABLET PO SCH ×2 (08:32→21:53)
[2016-09-12] MEDS: ClonazePAM 1 MG TABLET PO SCH (08:32)
[2016-09-12] MEDS: SALINE FLUSH 10ml SYRINGE IV PRN (12:49)
--- NOTE | 2016-09-12 16:05 | Neuropsych Progress Note ---
[facility] Subjective Date: 09/12/16 - Sujective/Severity of Illness Medications: Acetaminophen (Tylenol) 650 mg PO Q4HR PRN PRN Reason: Pain Last Admin: 09/11/16 14:21 Dose: 650 mg Acetaminophen (Tylenol Supp) 650 mg [place] Q5H PRN PRN Reason: Pain Last Admin: 09/09/16 05:29 Dose: 650 mg Al Hydroxide/Mg Hydroxide (Maalox Plus) 30 ml PO Q4H PRN PRN Reason: Indigestion Ascorbic Acid (Vitamin C) 500 mg PO BID [facility] Last Admin: 09/12/16 08:32 Dose: 500 mg Benztropine Mesylate (Cogentin) 1 mg PO BID [facility] Last Admin: 09/12/16 08:31 Dose: 1 mg Calcium Carbonate (Calcium) 500 mg PO DAILY [facility] Last Admin: 09/12/16 08:31 Dose: 500 mg Cholecalciferol (Vitamin D-3) 2,000 unit PO DAILY [facility] Last Admin: 09/12/16 08:33 Dose: 2,000 unit Clonazepam (Klonopin) 1 mg PO DAILY [facility] Last Admin: 09/12/16 08:32 Dose: 1 mg Docusate Sodium (Colace) 200 mg PO BID [facility] Last Admin: 09/12/16 08:31 Dose: 200 mg Folic Acid (Folbic) 1 tab PO DAILY [facility] Last Admin: 09/12/16 08:32 Dose: 1 tab Furosemide (Lasix) 20 mg PO MoWeFr [facility] Last Admin: 09/09/16 12:43 Dose: Not Given Guaifenesin (Robitussin Liq) 100 mg PO Q6HR PRN PRN Reason: Cough Haloperidol (Haldol) 0.5 mg PO Q6H PRN PRN Reason: Extreme agitation Haloperidol Lactate (Haldol) 0.5 mg IM Q6H PRN PRN Reason: Extreme agitation Loratadine (Claritin) 10 mg PO ACB PRN PRN Reason: Allergy symptoms Lorazepam (Ativan) 1 mg PO Q6H PRN PRN Reason: Extreme agitation Lorazepam (Ativan Inj) 1 mg IM Q6H PRN PRN Reason: Extreme agitation Magnesium Hydroxide (Mom) 30 ml PO DAILY PRN PRN Reason: Constipation Metformin HCl (Glucophage) [facility] Last Admin: 09/12/16 08:31 Dose: 500 mg Multivitamins/Minerals (Therapeutic - M) 1 tab PO DAILY [facility] Last Admin: 09/12/16 08:32 Dose: 1 tab Pharmacy Consult () 1 each XX ONE TIME PRN PRN Reason: PRN orders Ranitidine HCl (Zantac) 150 mg PO 0700 [facility] Last Admin: 09/12/16 06:22 Dose: 150 mg Risperidone (Risperdal) 4 mg PO BID [facility] Last Admin: 09/12/16 08:32 Dose: 4 mg Sodium Chloride (Iv Flush) 10 ml IV PRN PRN PRN Reason: Flushing Last Admin: 09/12/16 12:49 Dose: 10 ml Subjective: Patient seen and chart reviewed. Case discussed with treatment team. On interview, patient is calm and cooperative in the dayroom. She is now oriented to self, date and location (completely disoriented previously). She did sleep 3-4 hours last night, an improvement from previous. Patient later observed talking to self but does not appear to be in distress. Patient denies any SI, HI or AVH. Patient denies any adverse side effects related to psychotropic medications. Nursing staff report patient continues to be in good spirits with no behavioral difficulties. VSS. Patient is eating well. Psychotropic PRNs required in the past 24 hours: none. Start Time: 14:20 Stop Time: 14:40 Mental Status Exam Vitals: Last Vital Signs Temp 97 F 09/12/16 08:00 Pulse 77 09/12/16 08:00 Resp 18 09/12/16 08:00 BP 124/61 09/12/16 08:00 Pulse Ox 98 09/12/16 08:00 Height: 1.7 m Weight: 72.1 kg - Mental Status Exam Muscle Strength/Tone: Normal Dressing: Casual Grooming: Disheveled Attitude: Cooperative (intermittent) Motor Activity: Normal Eye Contact: Fair, Other Speech: Normal Volume: Normal Rhythm: Appropriate Rhythm Orientation: Oriented to person, Oriented to place, Oriented to time Mood: Euthymic Rate of Thoughts: Appropriate Rate Thought Organization: Disorganized Associations: Illogical Abstract Reasoning: Impaired, concrete Thought Content: Hyper-religiosity (suspected), Other (Denies paranoia) Perception/Psychotic: Other (Patient observed talking to self, not in distress) Language: Naming Intact Fund of Knowledge: Poor fund of knowledge Memory: Poor-immediate, Poor-recent, Poor-remote Suicidal Ideation: Denies Homicidal Ideation: Denies Insight: Impaired Judgement: Impaired Impulse Control: Fair - Laboratory Result Diagrams: 09/08/16 12:54 09/12/16 06:16 Laboratory Results - last 24 hr 09/11/16 09/12/16 09/12/16 20:39 06:07 06:16 Turbidity < 20 Sodium 145 H Potassium 3.9 Chloride 108 H Carbon Dioxide 27 Anion Gap 10 BUN 15.0 Creatinine 0.5 L GFR Calculation 122 BUN/Creatinine Ratio 30 H Glucose 94 Glucometer 137 94 Calculated Osmolality 280 Calcium 8.6 Icterus Index < 2 Specimen Hemolysis < 15 Assessment and Plan (1) Schizophrenia spectrum disorder with psychotic disorder type not yet determined Current visit: Yes Status: Chronic (2) Dehydration Current visit: Yes Status: Resolved (3) Type 2 diabetes mellitus Current visit: Yes Status: Chronic Continue to monitor sleep, r/o marion though seems to be improving cognitively. Will schedule Ativan 1mg PO q HS to target sleep as patient is already on Risperdal 4mg PO BID.
[2016-09-12] MEDS: LORazepam 1 MG TABLET PO SCH (21:56)
[2016-09-13] MEDS: RANITIDINE 150 MG TABLET PO SCH (09:16)
[2016-09-13] MEDS: METFORMIN 500 MG TABLET PO SCH ×2 (09:16→17:22)
[2016-09-13] MEDS: BENZTROPINE 1 MG TABLET PO SCH ×2 (09:16→21:15)
[2016-09-13] MEDS: CALCIUM CARBONATE 500 MG TABLET PO SCH (09:16)
[2016-09-13] MEDS: DOCUSATE SODIUM 100 MG CAPSULE PO SCH ×2 (09:16→21:15)
[2016-09-13] MEDS: ASCORBIC ACID 500 MG TABLET PO SCH ×2 (09:17→21:15)
[2016-09-13] MEDS: MULTI-VITAMIN + MINERAL TABLET PO SCH (09:17)
[2016-09-13] MEDS: FOLBIC TABLET PO SCH (09:17)
[2016-09-13] MEDS: RisperiDONE 2 MG TABLET PO SCH ×2 (09:17→21:15)
[2016-09-13] MEDS: ClonazePAM 1 MG TABLET PO SCH (09:17)
--- NOTE | 2016-09-13 11:20 | Progress Note ---
Subjective: Cherelle is seen today in follow up. She is up at breakfast table- is irritable with another patient sitting beside her- "She threw her napkin on the floor." She does not discuss anything else with me further. Chart is reviewed. Objective Vital signs: Temp Pulse Resp BP Pulse Ox 98.3 F 85 18 120/63 93 09/13/16 08:00 09/13/16 08:00 09/13/16 08:00 09/13/16 08:00 09/13/16 08:00 Body Mass Index: 24.9 - Constitutional Present: no acute distress, well nourished, well developed, cooperative Comments: Bruised IV site left hand - Routine HEENT Exam Head: Present: normocephalic, atraumatic Eye: Present: EOMI, PERRL ENT: Present: mucous membranes moist - Routine Respiratory Exam Present: CTA bilaterally. Absent: accessory muscle use, rales, respiratory distress - Routine Cardiovascular Exam Present: RRR, S1, S2. Absent: no murmur - Routine Abdominal Exam Present: soft, normoactive bowel sounds, non distended, non tender - Routine Extremities Exam Present: no edema, non tender - Routine Musculoskeletal Exam Musculoskeletal: no clubbing or cyanosis, no tenderness - Routine Skin Exam Present: intact, dry, warm - Routine Neurological Exam Present: alert - Routine Psychiatric Exam Present: cooperative. Absent: normal affect, good insight, good judgment Results - Labs CBC & Chem 7: 09/08/16 12:54 09/12/16 06:16 - Impressions CXR viewed- Small non-medical nail in left breast. Increased stool in left colon. Assessment and Plan (1) Chronic schizophrenia Current visit: Yes Status: Chronic (2) Dehydration Current visit: Yes Status: Resolved (3) Type 2 diabetes mellitus Current visit: Yes Status: Chronic (4) Constipation Current visit: Yes Status: Acute (5) Dehydration, moderate Current visit: Yes Status: Acute (6) Foreign body of breast, left, superficial Current visit: Yes Status: Chronic DVT Prophylaxis: other (N/A) GI Prophylaxis: Rantidine Resuscitation Status: Do Not Resuscitate Assessment and Plan: 09/13/16- *Schizophrenia- per attending *Dehydration/Hypernatremia- Encourage PO fluids. Hold Lasix. Follow labs intermittently. Will DC Hep Lock site for now as it is significantly bruised and a bit swollen. BMP AM *Constipation- Continue Colace, PRN laxative. *FB left breast- She has a non-medical nail present in left breast. Consider outpatient follow up. Was present in 2012- unclear on how long it has been present. Avoid mammography at this point on left breast. *Possible hyperthyroid- T3 pending. Sepsis Assessment - Evaluation Sepsis screening result: No Definite Risk - Focused Exam Vital Signs Temp Pulse Resp BP Pulse Ox 09/13/16 08:00 98.3 F 85 18 120/63 93 Respiratory exam: Present: CTA bilaterally Cardiovascular exam: Present: RRR, S1, S2 Hospital Course Summary Disclaimer: The visit summary below is not to be considered part of the above Progress Note. Hospital Course: 09/09/16 11:29 Agree with admission to [facility]. Continue with obtaining [facility] workup. Labs and images reviewed. She appears slightly dehydrated, at least based on urine sample. Will hold Lasix since she is not taking in fluids currently. Hold Glucophage since she is not eating; monitor sugars. If she does not begin taking in oral fluids today, would recommend placement of an IV with continuous IV fluids. Check BMP tomorrow morning. Discussed with nursing staff. They will inquire about starting treatment protocol for catatonia. Provide safe environment. Thank you for this consult - we will follow Cherelle along with you during her [facility] course. 09/10/16 12:40 Her catatonic state has resolved and she is able to maintain oral intake and hydration status. Dehydration is improving with oral intake. Her sodium level is minimally elevated, consistent with dehydration. She received 1L of IVF yesterday. Urine retention - required straight catheterization yesterday and had >900 mL urine return. She has been able to void spontaneously now and her post void residual bladder scan was too low to require cath. DM2 - blood sugars are stable. Resume Metformin tomorrow am. HTN - her Lasix has been on hold since she was dehydrated at time of admission. Her BP has been stable. Likely can restart Lasix soon. 09/11/16 15:04 TSH is slightly low at 0.30. Check free T4. Hypernatremia is mild at 145. Anticipate this will continue to improve since she is eating and drinking well. Will recheck labs tomorrow morning. Plan on resuming Lasix which is given Wednesday, Wednesday and Wednesday - start on . Blood sugars have not been hypoglycemic since turning. Metformin. In fact, she has had 2 elevated readings over 200. We'll change her diet to consistent carbohydrate. Psychiatric notes reviewed. 09/13/16 11:28 *Schizophrenia- per attending *Dehydration/Hypernatremia- Encourage PO fluids. Hold Lasix. Follow labs intermittently. Will DC Hep Lock site for now as it is significantly bruised and a bit swollen. BMP AM *Constipation- Continue Colace, PRN laxative. *FB left breast- She has a non-medical nail present in left breast. Consider outpatient follow up. Was present in 2012- unclear on how long it has been present. Avoid mammography at this point on left breast. *Possible hyperthyroid- T3 pending.
[2016-09-13] MEDS ORDERED: SENNOSIDES 8.6 MG TABLET PO PRN (11:23)
--- NOTE | 2016-09-13 19:15 | Neuropsych Progress Note ---
Generations Subjective Date: 09/13/16 - Sujective/Severity of Illness Medications: Acetaminophen (Tylenol) 650 mg PO Q4HR PRN PRN Reason: Pain Last Admin: 09/11/16 14:21 Dose: 650 mg Acetaminophen (Tylenol Supp) 650 mg [place] Q5H PRN PRN Reason: Pain Last Admin: 09/09/16 05:29 Dose: 650 mg Al Hydroxide/Mg Hydroxide (Maalox Plus) 30 ml PO Q4H PRN PRN Reason: Indigestion Ascorbic Acid (Vitamin C) 500 mg PO BID [facility] Last Admin: 09/13/16 09:17 Dose: 500 mg Benztropine Mesylate (Cogentin) 1 mg PO BID [facility] Last Admin: 09/13/16 09:16 Dose: 1 mg Calcium Carbonate (Calcium) 500 mg PO DAILY [facility] Last Admin: 09/13/16 09:16 Dose: 500 mg Cholecalciferol (Vitamin D-3) 2,000 unit PO DAILY [facility] Last Admin: 09/13/16 09:18 Dose: 2,000 unit Clonazepam (Klonopin) 1 mg PO DAILY [facility] Last Admin: 09/13/16 09:17 Dose: 1 mg Docusate Sodium (Colace) 200 mg PO BID [facility] Last Admin: 09/13/16 09:16 Dose: 200 mg Folic Acid (Folbic) 1 tab PO DAILY [facility] Last Admin: 09/13/16 09:17 Dose: 1 tab Furosemide (Lasix) 20 mg PO MoWeFr [facility] Last Admin: 09/09/16 12:43 Dose: Not Given Guaifenesin (Robitussin Liq) 100 mg PO Q6HR PRN PRN Reason: Cough Haloperidol (Haldol) 0.5 mg PO Q6H PRN PRN Reason: Extreme agitation Haloperidol Lactate (Haldol) 0.5 mg IM Q6H PRN PRN Reason: Extreme agitation Loratadine (Claritin) 10 mg PO ACB PRN PRN Reason: Allergy symptoms Lorazepam (Ativan) 1 mg PO HS [facility] Last Admin: 09/12/16 21:56 Dose: 1 mg Lorazepam (Ativan) 1 mg PO Q6H PRN PRN Reason: Extreme agitation Lorazepam (Ativan Inj) 1 mg IM Q6H PRN PRN Reason: Extreme agitation Magnesium Hydroxide (Mom) 30 ml PO DAILY PRN PRN Reason: Constipation Last Admin: 09/12/16 21:53 Dose: 30 ml Metformin HCl (Glucophage) 500 mg PO BIDBS [facility] Last Admin: 09/13/16 17:22 Dose: 500 mg Multivitamins/Minerals (Therapeutic - M) 1 tab PO DAILY [facility] Last Admin: 09/13/16 09:17 Dose: 1 tab Pharmacy Consult () 1 each XX ONE TIME PRN PRN Reason: PRN orders Ranitidine HCl (Zantac) 150 mg PO 0700 [facility] Last Admin: 09/13/16 09:16 Dose: 150 mg Risperidone (Risperdal) 4 mg PO BID [facility] Last Admin: 09/13/16 09:17 Dose: 4 mg Senna (Senna Lax) 8.6 mg PO BID PRN PRN Reason: Constipation Sodium Chloride (Iv Flush) 10 ml IV PRN PRN PRN Reason: Flushing Last Admin: 09/12/16 12:49 Dose: 10 ml Subjective: Patient seen and chart reviewed. Case discussed with treatment team. On interview, patient is pleasant and cooperative, and reports her mood is "sorta good, sorta bad." When asked why, she states "you gotta have the good with the bad." Appears euthymic overall. Some concern with limited PO fluid intake yesterday as patient did not want to have to use the restroom - but appears to be making an effort to drink fluids today with encouragement from staff. Talks to self at times but does not appear to be in distress or concerning in nature. Makes muslim statements at times ("bleed in Sumanth' name ") on BG check. Patient denies any SI, HI or AVH. Patient denies any adverse side effects related to psychotropic medications. Nursing staff report patient has not been observed being hyperactive, she is pleasant/cooperative overall. Patient slept significantly better last night after scheduling Ativan at bedtime - continue to monitor sleep and for any symptoms consitent with marion. VSS. Patient is eating well. Psychotropic PRNs required in the past 24 hours: none. Hospitalist rechecking labs in AM, T3 pending. Start Time: 11:20 Stop Time: 11:40 Mental Status Exam Vitals: Last Vital Signs Temp 97.7 F 09/13/16 16:00 Pulse 84 09/13/16 16:00 Resp 18 09/13/16 16:00 BP 119/56 09/13/16 16:00 Pulse Ox 94 09/13/16 16:00 Height: 1.7 m Weight: 72.1 kg - Mental Status Exam Muscle Strength/Tone: Normal Dressing: Casual Grooming: Disheveled Attitude: Cooperative (intermittent) Motor Activity: Normal Eye Contact: Fair Speech: Normal Volume: Normal Rhythm: Appropriate Rhythm Sensory: Alert Orientation: Oriented to person, Oriented to place, Oriented to time Mood: Euthymic Rate of Thoughts: Appropriate Rate Thought Organization: Disorganized Associations: Illogical Abstract Reasoning: Impaired, concrete Thought Content: Hyper-religiosity (mild), Other (Denies paranoia) Perception/Psychotic: Other (Patient observed talking to self, not in distress) Language: Naming Intact Fund of Knowledge: Poor fund of knowledge Memory: Poor-immediate, Poor-recent, Poor-remote Suicidal Ideation: Denies Homicidal Ideation: Denies Insight: Impaired Judgement: Impaired Impulse Control: Fair - Laboratory Result Diagrams: 09/08/16 12:54 09/12/16 06:16 Laboratory Results - last 24 hr 09/12/16 09/13/16 19:52 06:30 Glucometer 143 101 Assessment and Plan (1) Schizophrenia spectrum disorder with psychotic disorder type not yet determined Current visit: Yes Status: Chronic (2) Dehydration Current visit: Yes Status: Resolved (3) Type 2 diabetes mellitus Current visit: Yes Status: Chronic Patient doing well. Need to continue to monitor sleep and symptoms consistent with marion. Recommend repeating SLUMS prior to admission. Very important patient continues to drink and need to make sure that delusional thoughts/ behaviors isn't causing this reluctance.
[2016-09-13] MEDS: LORazepam 1 MG TABLET PO SCH (21:15)
[2016-09-14] MEDS: CALCIUM CARBONATE 500 MG TABLET PO SCH (08:41)
[2016-09-14] MEDS: METFORMIN 500 MG TABLET PO SCH ×2 (08:41→17:15)
[2016-09-14] MEDS: RANITIDINE 150 MG TABLET PO SCH (08:41)
[2016-09-14] MEDS: DOCUSATE SODIUM 100 MG CAPSULE PO SCH ×2 (08:42→21:25)
[2016-09-14] MEDS: FOLBIC TABLET PO SCH (08:42)
[2016-09-14] MEDS: BENZTROPINE 1 MG TABLET PO SCH ×2 (08:42→21:26)
[2016-09-14] MEDS: ClonazePAM 1 MG TABLET PO SCH (08:42)
[2016-09-14] MEDS: RisperiDONE 2 MG TABLET PO SCH ×2 (08:42→21:25)
[2016-09-14] MEDS: MULTI-VITAMIN + MINERAL TABLET PO SCH (08:43)
[2016-09-14] MEDS: ASCORBIC ACID 500 MG TABLET PO SCH ×2 (08:43→21:24)
[2016-09-14] MEDS: LORazepam 1 MG TABLET PO SCH (21:26)
--- NOTE | 2016-09-14 23:38 | Neuropsych Progress Note ---
Generations Subjective Date: 09/14/16 - Sujective/Severity of Illness Medications: Acetaminophen (Tylenol) 650 mg PO Q4HR PRN PRN Reason: Pain Last Admin: 09/11/16 14:21 Dose: 650 mg Acetaminophen (Tylenol Supp) 650 mg [place] Q5H PRN PRN Reason: Pain Last Admin: 09/09/16 05:29 Dose: 650 mg Al Hydroxide/Mg Hydroxide (Maalox Plus) 30 ml PO Q4H PRN PRN Reason: Indigestion Ascorbic Acid (Vitamin C) 500 mg PO BID [facility] Last Admin: 09/14/16 21:24 Dose: 500 mg Benztropine Mesylate (Cogentin) 1 mg PO BID [facility] Last Admin: 09/14/16 21:26 Dose: 1 mg Calcium Carbonate (Calcium) 500 mg PO DAILY [facility] Last Admin: 09/14/16 08:41 Dose: 500 mg Cholecalciferol (Vitamin D-3) 2,000 unit PO DAILY [facility] Last Admin: 09/14/16 08:43 Dose: 2,000 unit Clonazepam (Klonopin) 1 mg PO DAILY [facility] Last Admin: 09/14/16 08:42 Dose: 1 mg Docusate Sodium (Colace) 200 mg PO BID [facility] Last Admin: 09/14/16 21:25 Dose: 200 mg Folic Acid (Folbic) 1 tab PO DAILY [facility] Last Admin: 09/14/16 08:42 Dose: 1 tab Furosemide (Lasix) 20 mg PO MoWeFr [facility] Last Admin: 09/09/16 12:43 Dose: Not Given Guaifenesin (Robitussin Liq) 100 mg PO Q6HR PRN PRN Reason: Cough Haloperidol (Haldol) 0.5 mg PO Q6H PRN PRN Reason: Extreme agitation Haloperidol Lactate (Haldol) 0.5 mg IM Q6H PRN PRN Reason: Extreme agitation Loratadine (Claritin) 10 mg PO ACB PRN PRN Reason: Allergy symptoms Lorazepam (Ativan) 1 mg PO HS [facility] Last Admin: 09/14/16 21:26 Dose: 1 mg Lorazepam (Ativan) 1 mg PO Q6H PRN PRN Reason: Extreme agitation Lorazepam (Ativan Inj) 1 mg IM Q6H PRN PRN Reason: Extreme agitation Magnesium Hydroxide (Mom) 30 ml PO DAILY PRN PRN Reason: Constipation Last Admin: 09/12/16 21:53 Dose: 30 ml Metformin HCl (Glucophage) 500 mg PO BIDBS [facility] Last Admin: 09/14/16 17:15 Dose: 500 mg Multivitamins/Minerals (Therapeutic - M) 1 tab PO DAILY [facility] Last Admin: 09/14/16 08:43 Dose: 1 tab Pharmacy Consult () 1 each XX ONE TIME PRN PRN Reason: PRN orders Ranitidine HCl (Zantac) 150 mg PO 0700 [facility] Last Admin: 09/14/16 08:41 Dose: 150 mg Risperidone (Risperdal) 4 mg PO BID [facility] Last Admin: 09/14/16 21:25 Dose: 4 mg Senna (Senna Lax) 8.6 mg PO BID PRN PRN Reason: Constipation Sodium Chloride (Iv Flush) 10 ml IV PRN PRN PRN Reason: Flushing Last Admin: 09/12/16 12:49 Dose: 10 ml Subjective: Patient seen, chart reviewed and vitals noted to be stable. Patient was seen in the day room and she describes her mood today as "great". Patient reportedly slept for 9 hours last night. She denies any auditory or visual hallucinations. Patient denies any acute or chronic EPS. Start Time: 19:45 Stop Time: 20:00 Mental Status Exam Vitals: Last Vital Signs Temp 97.2 F 09/14/16 19:26 Pulse 89 09/14/16 19:26 Resp 18 09/14/16 19:26 BP 116/55 09/14/16 19:26 Pulse Ox 93 09/14/16 19:26 Height: 1.7 m Weight: 72.1 kg - Mental Status Exam Muscle Strength/Tone: Normal Dressing: Casual Grooming: Poor Attitude: Cooperative (intermittent) Motor Activity: Normal Eye Contact: Fair Speech: Normal Volume: Normal Rhythm: Appropriate Rhythm Orientation: Oriented to person, Oriented to place, Oriented to time Mood: Euthymic Rate of Thoughts: Appropriate Rate Thought Organization: Disorganized Associations: Illogical Abstract Reasoning: Impaired, concrete Thought Content: Other (Denies paranoia) Perception/Psychotic: Other (Patient observed talking to self, not in distress) Language: Naming Intact Fund of Knowledge: Poor fund of knowledge Memory: Poor-immediate, Poor-recent, Poor-remote Suicidal Ideation: Denies Homicidal Ideation: Denies Insight: Impaired Judgement: Impaired Impulse Control: Fair - Laboratory Result Diagrams: 09/08/16 12:54 09/14/16 04:58 Laboratory Results - last 24 hr 09/12/16 09/14/16 09/14/16 06:16 04:58 06:05 Turbidity < 20 Sodium 146 H Potassium 4.0 Chloride 108 H Carbon Dioxide 28 Anion Gap 10 BUN 27.0 H D Creatinine 0.6 L GFR Calculation 99 BUN/Creatinine Ratio 45 H Glucose 87 Glucometer 112 Calculated Osmolality 285 H Calcium 8.6 Icterus Index < 2 Free T4 1.39 Specimen Hemolysis < 15 09/14/16 09/14/16 09/14/16 11:31 15:25 21:00 Turbidity Sodium Potassium Chloride Carbon Dioxide Anion Gap BUN Creatinine GFR Calculation BUN/Creatinine Ratio Glucose Glucometer 95 95 93 Calculated Osmolality Calcium Icterus Index Free T4 Specimen Hemolysis Assessment and Plan (1) Dehydration, moderate Current visit: Yes Status: Acute (2) Chronic schizophrenia Current visit: Yes Status: Chronic (3) Type 2 diabetes mellitus Current visit: Yes Status: Chronic Cont current medication
[2016-09-15] MEDS: RANITIDINE 150 MG TABLET PO SCH (08:10)
[2016-09-15] MEDS: DOCUSATE SODIUM 100 MG CAPSULE PO SCH ×2 (08:11→21:02)
[2016-09-15] MEDS: METFORMIN 500 MG TABLET PO SCH ×2 (08:11→17:21)
[2016-09-15] MEDS: BENZTROPINE 1 MG TABLET PO SCH ×2 (08:11→21:01)
[2016-09-15] MEDS: CALCIUM CARBONATE 500 MG TABLET PO SCH (08:11)
[2016-09-15] MEDS: MULTI-VITAMIN + MINERAL TABLET PO SCH (08:12)
[2016-09-15] MEDS: ClonazePAM 1 MG TABLET PO SCH (08:12)
[2016-09-15] MEDS: FOLBIC TABLET PO SCH (08:12)
[2016-09-15] MEDS: RisperiDONE 2 MG TABLET PO SCH ×2 (08:12→21:03)
[2016-09-15] MEDS: ASCORBIC ACID 500 MG TABLET PO SCH ×2 (08:12→21:03)
--- NOTE | 2016-09-15 11:07 | Progress Note ---
Subjective: Cherelle was sitting at the dining table after breakfast. I asked her "What's new? " and she replied jovially "Nothing's new. Everything's old" and smiled. She stated that physically she's been doing well and denies any breathing problems, coughing, abdominal pain or nausea. She reports that she's been eating well. She 's been sleeping well at night. Objective Vital signs: Temp Pulse Resp BP Pulse Ox 97.4 F 68 16 121/67 96 09/15/16 08:00 09/15/16 08:00 09/15/16 08:00 09/15/16 08:00 09/15/16 08:00 Body Mass Index: 24.9 - Constitutional Present: no acute distress, well nourished, well developed, cooperative - Routine HEENT Exam Eye: Absent: conjunctival icterus, scleral injection ENT: Present: mucous membranes moist - Routine Respiratory Exam Present: CTA bilaterally - Routine Cardiovascular Exam Present: RRR, S1, S2 - Routine Abdominal Exam Present: soft, normoactive bowel sounds, non distended, non tender - Routine Extremities Exam Present: no edema. Absent: joint swelling Comments: bruising to right forearm - Routine Musculoskeletal Exam Musculoskeletal: moving extremities well - Routine Skin Exam Present: intact, dry, warm - Routine Neurological Exam Present: alert, oriented X3 - Routine Psychiatric Exam Present: normal affect, normal thought process Results - Labs CBC & Chem 7: 09/08/16 12:54 09/14/16 04:58 Assessment and Plan (1) Chronic schizophrenia Current visit: Yes Status: Chronic (2) Dehydration Current visit: Yes Status: Resolved (3) Type 2 diabetes mellitus Current visit: Yes Status: Chronic (4) Constipation Current visit: Yes Status: Acute (5) Dehydration, moderate Current visit: Yes Status: Acute (6) Foreign body of breast, left, superficial Current visit: Yes Status: Chronic Assessment and Plan: Dehydration and hypernatremia -Na 146 on 09/14 - reassess on 09/17/16 -continue to push fluids -Lasix on hold BP well controlled, even with Lasix being on hold Abnormal TSH -no clinical symptoms to suggest hyperthyroidism -TSH was 0.30 -T4 1.39; T3 pending -f/u outpatient Schizophrenia -per attending Sepsis Assessment - Evaluation Sepsis screening result: No Definite Risk - Focused Exam Vital Signs Temp Pulse Resp BP Pulse Ox 09/15/16 08:00 97.4 F 68 16 121/67 96 Respiratory exam: Present: CTA bilaterally Cardiovascular exam: Present: RRR, S1, S2 Hospital Course Summary Disclaimer: The visit summary below is not to be considered part of the above Progress Note. Hospital Course: 09/09/16 11:29 Agree with admission to [facility]. Continue with obtaining [facility] workup. Labs and images reviewed. She appears slightly dehydrated, at least based on urine sample. Will hold Lasix since she is not taking in fluids currently. Hold Glucophage since she is not eating; monitor sugars. If she does not begin taking in oral fluids today, would recommend placement of an IV with continuous IV fluids. Check BMP tomorrow morning. Discussed with nursing staff. They will inquire about starting treatment protocol for catatonia. Provide safe environment. Thank you for this consult - we will follow Cherelle along with you during her [facility] course. 09/10/16 12:40 Her catatonic state has resolved and she is able to maintain oral intake and hydration status. Dehydration is improving with oral intake. Her sodium level is minimally elevated, consistent with dehydration. She received 1L of IVF yesterday. Urine retention - required straight catheterization yesterday and had >900 mL urine return. She has been able to void spontaneously now and her post void residual bladder scan was too low to require cath. DM2 - blood sugars are stable. Resume Metformin tomorrow am. HTN - her Lasix has been on hold since she was dehydrated at time of admission. Her BP has been stable. Likely can restart Lasix soon. 09/11/16 15:04 TSH is slightly low at 0.30. Check free T4. Hypernatremia is mild at 145. Anticipate this will continue to improve since she is eating and drinking well. Will recheck labs tomorrow morning. Plan on resuming Lasix which is given Wednesday, Wednesday and Wednesday - start on . Blood sugars have not been hypoglycemic since turning. Metformin. In fact, she has had 2 elevated readings over 200. We'll change her diet to consistent carbohydrate. Psychiatric notes reviewed. 09/13/16 11:28 *Schizophrenia- per attending *Dehydration/Hypernatremia- Encourage PO fluids. Hold Lasix. Follow labs intermittently. Will DC Hep Lock site for now as it is significantly bruised and a bit swollen. BMP AM *Constipation- Continue Colace, PRN laxative. *FB left breast- She has a non-medical nail present in left breast. Consider outpatient follow up. Was present in 2012- unclear on how long it has been present. Avoid mammography at this point on left breast. *Possible hyperthyroid- T3 pending. 09/15/16 11:14 Dehydration and hypernatremia -Na 146 on 09/14 - reassess on 09/17/16 -continue to push fluids -Lasix on hold BP well controlled, even with Lasix being on hold Abnormal TSH -no clinical symptoms to suggest hyperthyroidism -TSH was 0.30 -T4 1.39; T3 pending -f/u outpatient Schizophrenia -per attending
--- NOTE | 2016-09-15 18:58 | Neuropsych Progress Note ---
[facility] Subjective Date: 09/15/16 - Sujective/Severity of Illness Medications: Acetaminophen (Tylenol) 650 mg PO Q4HR PRN PRN Reason: Pain Last Admin: 09/11/16 14:21 Dose: 650 mg Acetaminophen (Tylenol Supp) 650 mg [place] Q5H PRN PRN Reason: Pain Last Admin: 09/09/16 05:29 Dose: 650 mg Al Hydroxide/Mg Hydroxide (Maalox Plus) 30 ml PO Q4H PRN PRN Reason: Indigestion Ascorbic Acid (Vitamin C) 500 mg PO BID [facility] Last Admin: 09/15/16 08:12 Dose: 500 mg Benztropine Mesylate (Cogentin) 1 mg PO BID [facility] Last Admin: 09/15/16 08:11 Dose: 1 mg Calcium Carbonate (Calcium) 500 mg PO DAILY [facility] Last Admin: 09/15/16 08:11 Dose: 500 mg Cholecalciferol (Vitamin D-3) 2,000 unit PO DAILY [facility] Last Admin: 09/15/16 08:12 Dose: 2,000 unit Clonazepam (Klonopin) 1 mg PO DAILY [facility] Last Admin: 09/15/16 08:12 Dose: 1 mg Docusate Sodium (Colace) 200 mg PO BID [facility] Last Admin: 09/15/16 08:11 Dose: 200 mg Folic Acid (Folbic) 1 tab PO DAILY [facility] Last Admin: 09/15/16 08:12 Dose: 1 tab Furosemide (Lasix) 20 mg PO MoWeFr [facility] Last Admin: 09/09/16 12:43 Dose: Not Given Guaifenesin (Robitussin Liq) 100 mg PO Q6HR PRN PRN Reason: Cough Haloperidol (Haldol) 0.5 mg PO Q6H PRN PRN Reason: Extreme agitation Haloperidol Lactate (Haldol) 0.5 mg IM Q6H PRN PRN Reason: Extreme agitation Loratadine (Claritin) 10 mg PO ACB PRN PRN Reason: Allergy symptoms Lorazepam (Ativan) 1 mg PO HS [facility] Last Admin: 09/14/16 21:26 Dose: 1 mg Lorazepam (Ativan) 1 mg PO Q6H PRN PRN Reason: Extreme agitation Lorazepam (Ativan Inj) 1 mg IM Q6H PRN PRN Reason: Extreme agitation Magnesium Hydroxide (Mom) 30 ml PO DAILY PRN PRN Reason: Constipation Last Admin: 09/15/16 11:34 Dose: 30 ml Metformin HCl (Glucophage) 500 mg PO BIDBS [facility] Last Admin: 09/15/16 17:21 Dose: 500 mg Multivitamins/Minerals (Therapeutic - M) 1 tab PO DAILY [facility] Last Admin: 09/15/16 08:12 Dose: 1 tab Pharmacy Consult () 1 each XX ONE TIME PRN PRN Reason: PRN orders Ranitidine HCl (Zantac) 150 mg PO 0700 [facility] Last Admin: 09/15/16 08:10 Dose: 150 mg Risperidone (Risperdal) 4 mg PO BID [facility] Last Admin: 09/15/16 08:12 Dose: 4 mg Senna (Senna Lax) 8.6 mg PO BID PRN PRN Reason: Constipation Sodium Chloride (Iv Flush) 10 ml IV PRN PRN PRN Reason: Flushing Last Admin: 09/12/16 12:49 Dose: 10 ml Subjective: Patient seen, chart reviewed and case discussed with staff. Patient reports that she is sleeping okay and has been eating well too. Staff reports that she continues to exhibit odd behavior and often isolates to herself with minimal interaction. She is currently on Risperidone 4mg po BID and there is no acute or chronic EPS observed or reported. Given the maxed out dose of Risperidone, patient may benefit from considering another anti-psychotic, but will hold off until her past medication history is reviewed. Start Time: 14:00 Stop Time: 14:20 Mental Status Exam Vitals: Last Vital Signs Temp 98 F 09/15/16 16:00 Pulse 66 09/15/16 16:00 Resp 16 09/15/16 08:00 BP 110/56 09/15/16 16:00 Pulse Ox 97 09/15/16 16:00 Height: 1.7 m Weight: 72.1 kg - Mental Status Exam Muscle Strength/Tone: Weak Dressing: Casual Grooming: Poor Attitude: Cooperative (intermittent) Motor Activity: Normal Eye Contact: Fair Speech: Normal Volume: Normal Rhythm: Appropriate Rhythm Orientation: Oriented to person, Oriented to place, Oriented to time Mood: Neutral Rate of Thoughts: Appropriate Rate Thought Organization: Disorganized Associations: Illogical Abstract Reasoning: Impaired, concrete Thought Content: Other (Denies paranoia) Perception/Psychotic: Other (Patient observed talking to self, not in distress) Language: Naming Intact Fund of Knowledge: Poor fund of knowledge Memory: Poor-immediate, Poor-recent, Poor-remote Suicidal Ideation: Denies Homicidal Ideation: Denies Insight: Impaired Judgement: Impaired Impulse Control: Fair - Laboratory Result Diagrams: 09/08/16 12:54 09/14/16 04:58 Laboratory Results - last 24 hr 09/14/16 09/15/16 09/15/16 21:00 05:33 10:11 Glucometer 93 95 121 Assessment and Plan (1) Chronic schizophrenia Current visit: Yes Status: Chronic (2) Dehydration, moderate Current visit: Yes Status: Acute (3) Type 2 diabetes mellitus Current visit: Yes Status: Chronic Review patient's past medications and switching to another anti-psychotic.
[2016-09-15] MEDS: LORazepam 1 MG TABLET PO SCH (21:48)
[2016-09-16] MEDS: FOLBIC TABLET PO SCH (09:16)
[2016-09-16] MEDS: CALCIUM CARBONATE 500 MG TABLET PO SCH (09:16)
[2016-09-16] MEDS: RANITIDINE 150 MG TABLET PO SCH (09:16)
[2016-09-16] MEDS: DOCUSATE SODIUM 100 MG CAPSULE PO SCH ×2 (09:16→21:15)
[2016-09-16] MEDS: ASCORBIC ACID 500 MG TABLET PO SCH ×2 (09:17→21:15)
[2016-09-16] MEDS: RisperiDONE 2 MG TABLET PO SCH ×2 (09:17→21:15)
[2016-09-16] MEDS: METFORMIN 500 MG TABLET PO SCH ×2 (09:17→17:30)
[2016-09-16] MEDS: BENZTROPINE 1 MG TABLET PO SCH ×2 (09:17→21:15)
[2016-09-16] MEDS: ClonazePAM 1 MG TABLET PO SCH (09:17)
[2016-09-16] MEDS: MULTI-VITAMIN + MINERAL TABLET PO SCH (09:17)
[2016-09-16] MEDS: ACETAMINOPHEN 325 MG TABLET PO PRN (12:19)
--- NOTE | 2016-09-16 18:03 | Neuropsych Progress Note ---
[facility] Subjective Date: 09/16/16 - Sujective/Severity of Illness Medications: Acetaminophen (Tylenol) 650 mg PO Q4HR PRN PRN Reason: Pain Last Admin: 09/16/16 12:19 Dose: 650 mg Acetaminophen (Tylenol Supp) 650 mg [place] Q5H PRN PRN Reason: Pain Last Admin: 09/09/16 05:29 Dose: 650 mg Al Hydroxide/Mg Hydroxide (Maalox Plus) 30 ml PO Q4H PRN PRN Reason: Indigestion Ascorbic Acid (Vitamin C) 500 mg PO BID [facility] Last Admin: 09/16/16 09:17 Dose: 500 mg Benztropine Mesylate (Cogentin) 1 mg PO BID [facility] Last Admin: 09/16/16 09:17 Dose: 1 mg Calcium Carbonate (Calcium) 500 mg PO DAILY [facility] Last Admin: 09/16/16 09:16 Dose: 500 mg Cholecalciferol (Vitamin D-3) 2,000 unit PO DAILY [facility] Last Admin: 09/16/16 09:17 Dose: 2,000 unit Clonazepam (Klonopin) 1 mg PO DAILY [facility] Last Admin: 09/16/16 09:17 Dose: 1 mg Docusate Sodium (Colace) 200 mg PO BID [facility] Last Admin: 09/16/16 09:16 Dose: 200 mg Folic Acid (Folbic) 1 tab PO DAILY [facility] Last Admin: 09/16/16 09:16 Dose: 1 tab Furosemide (Lasix) 20 mg PO MoWeFr [facility] Last Admin: 09/09/16 12:43 Dose: Not Given Guaifenesin (Robitussin Liq) 100 mg PO Q6HR PRN PRN Reason: Cough Haloperidol (Haldol) 0.5 mg PO Q6H PRN PRN Reason: Extreme agitation Haloperidol Lactate (Haldol) 0.5 mg IM Q6H PRN PRN Reason: Extreme agitation Loratadine (Claritin) 10 mg PO ACB PRN PRN Reason: Allergy symptoms Lorazepam (Ativan) 1 mg PO HS [facility] Last Admin: 09/15/16 21:48 Dose: 1 mg Lorazepam (Ativan) 1 mg PO Q6H PRN PRN Reason: Extreme agitation Lorazepam (Ativan Inj) 1 mg IM Q6H PRN PRN Reason: Extreme agitation Magnesium Hydroxide (Mom) 30 ml PO DAILY PRN PRN Reason: Constipation Last Admin: 09/15/16 11:34 Dose: 30 ml Metformin HCl (Glucophage) 500 mg PO BIDBS [facility] Last Admin: 09/16/16 17:30 Dose: 500 mg Multivitamins/Minerals (Therapeutic - M) 1 tab PO DAILY [facility] Last Admin: 09/16/16 09:17 Dose: 1 tab Pharmacy Consult () 1 each XX ONE TIME PRN PRN Reason: PRN orders Ranitidine HCl (Zantac) 150 mg PO 0700 [facility] Last Admin: 09/16/16 09:16 Dose: 150 mg Risperidone (Risperdal) 4 mg PO BID [facility] Last Admin: 09/16/16 09:17 Dose: 4 mg Senna (Senna Lax) 8.6 mg PO BID PRN PRN Reason: Constipation Sodium Chloride (Iv Flush) 10 ml IV PRN PRN PRN Reason: Flushing Last Admin: 09/12/16 12:49 Dose: 10 ml Subjective: Patient seen, chart reviewed and case discussed with nursing staff. Patient has not had any agitation or aggressive behavior, but often stays on her own without much interaction. Patient has been tolerating her medications and no side effect reported or noted. The SW spoke with the facility and according to the report provided this appears to be patient's baseline. Reviewed records from [place]. Start Time: 14:00 Stop Time: 14:20 Mental Status Exam Vitals: Last Vital Signs Temp 97.1 F 09/16/16 16:00 Pulse 71 09/16/16 16:00 Resp 16 09/16/16 16:00 BP 106/53 09/16/16 16:00 Pulse Ox 99 09/16/16 16:00 Height: 1.7 m Weight: 72.3 kg - Mental Status Exam Muscle Strength/Tone: Weak Dressing: Casual Grooming: Fair Attitude: Cooperative (intermittent) Motor Activity: Normal Eye Contact: Fair Speech: Normal Volume: Normal Rhythm: Appropriate Rhythm Orientation: Oriented to person, Oriented to place, Oriented to time Mood: Neutral Rate of Thoughts: Appropriate Rate Thought Organization: Disorganized Associations: Illogical Abstract Reasoning: Impaired, concrete Thought Content: Other (Denies paranoia) Perception/Psychotic: Other (Patient observed talking to self, not in distress) Language: Naming Intact Fund of Knowledge: Poor fund of knowledge Memory: Poor-immediate, Poor-recent, Poor-remote Suicidal Ideation: Denies Homicidal Ideation: Denies Insight: Impaired Judgement: Impaired Impulse Control: Fair - Laboratory Result Diagrams: 09/08/16 12:54 09/14/16 04:58 Laboratory Results - last 24 hr 09/15/16 09/15/16 09/16/16 20:30 22:24 06:03 Glucometer 65 87 101 09/16/16 14:44 Glucometer 106 Assessment and Plan (1) Chronic schizophrenia Current visit: Yes Status: Chronic (2) Dehydration, moderate Current visit: Yes Status: Acute (3) Type 2 diabetes mellitus Current visit: Yes Status: Chronic Cont current treatment and consider discharge Wednesday.
[2016-09-16] MEDS: LORazepam 1 MG TABLET PO SCH (21:15)
[2016-09-17] MEDS: RANITIDINE 150 MG TABLET PO SCH (08:33)
[2016-09-17] MEDS: BENZTROPINE 1 MG TABLET PO SCH ×2 (08:34→21:34)
[2016-09-17] MEDS: DOCUSATE SODIUM 100 MG CAPSULE PO SCH ×2 (08:34→21:33)
[2016-09-17] MEDS: METFORMIN 500 MG TABLET PO SCH ×2 (08:34→17:30)
[2016-09-17] MEDS: ClonazePAM 1 MG TABLET PO SCH (08:34)
[2016-09-17] MEDS: CALCIUM CARBONATE 500 MG TABLET PO SCH (08:34)
[2016-09-17] MEDS: FOLBIC TABLET PO SCH (08:34)
[2016-09-17] MEDS: RisperiDONE 2 MG TABLET PO SCH ×2 (08:37→21:33)
[2016-09-17] MEDS: MULTI-VITAMIN + MINERAL TABLET PO SCH (08:37)
[2016-09-17] MEDS: ASCORBIC ACID 500 MG TABLET PO SCH ×2 (08:37→21:34)
--- NOTE | 2016-09-17 10:29 | Discharge Summary ---
Discharge Plan - Med Rec/Dispo Referrals/Follow Up: Mayra Gayle APRN [Other] (Mayra Lee) Kirk Ward APRN [Advanced Practice Nurse] - (Hosp. follow-up on at 1:30 pm. [address] [place] [address] .) Additional Instructions: Discharge Diagnosis:Schizophrenia IN CASE OF PSYCHIATRIC EMERGENCY, CONTACT [facility] STAFF AT [phone] ( available 24 hrs daily.) Prescriptions: New Acetaminophen Supp [Tylenol Supp] 650 mg [place] Q5H PRN supp PRN Reason: Pain Benztropine [Cogentin] 1 mg PO BID Sennosides [Senna Lax] 8.6 mg PO BID PRN PRN Reason: Constipation Vit B12/Folic Acida/Pyridoxine [Folbic] 1 tab PO DAILY Continue raNITIdine HCl [Ranitidine HCl] 150 mg PO DAILY #0 clonazePAM [Clonazepam] 1 mg PO DAILY #0 risperiDONE [Risperidone] 4 mg PO BID #0 Guaifenesin Oral Liq [Robitussin] 5 ml PO Q6HR PRN PRN Reason: Cough Milk of Magnesia [Mom] 30 ml PO DAILY PRN PRN Reason: Constipation Loratadine [Claritin] 10 mg PO DAILY PRN PRN Reason: Allergy Symptoms Calcium Carbonate [[id number]] 500 mg PO DAILY Furosemide [Lasix] 1 tab PO QMWF Cholecalciferol (Vitamin D3) [Vitamin D3] 2 cap PO DAILY Docusate Sodium [Colace] 200 mg PO BID #0 Ascorbate Calcium [Vitamin C] 500 mg PO BID Metformin [Glucophage] 500 mg PO BIDWM Multivit,Calc,Mins/Iron/Folic [Thera-M Tablet] 1 tab PO DAILY Discontinued Quetiapine Fumarate 100 mg PO BID #0 Acetaminophen 650 mg PO Q4HR PRN PRN Reason: Pain ClonazePAM [Klonopin] 1 mg PO PRN PRN PRN Reason: Agitation Benztropine Mesylate 1 mg PO BID #0 Simvastatin 20 mg PO HS #0 Mag Hydrox/Aluminum Hyd/Simeth [Maalox Advanced Suspension] 30 ml PO Q4H PRN PRN Reason: Gastrointestinal Upset - Disposition 01 Discharged Home, Self-Care
--- NOTE | 2016-09-17 10:32 | Extended Care Facility Orders ---
Admission Orders Admit to:: [facility] Allergies/Adverse Reactions: Allergies No Known Drug Allergies Allergy (Verified 09/11/16 13:22) No Known Adverse Drug Reactions Adverse Reaction (Verified 09/11/16 13:22) Admitting Diagnosis: schizophrenia Admitting Physician: Blossom Faye MD Attending Physician: Blossom Faye MD Code Status: Do Not Resuscitate Anticiapted Length of Stay: greater than 30 days Diet: 09/11/16 Dinner Consistent Carbohydrate Diet [DIET] Calorie Level: [address] Half-[address] Certification: I certify that SNF services are required to be given on an Inpatient basis because of the patients need for long-term care on a continuing basis for the condition(s) for which he/she received inpatient hospital services prior to his/her transfer to the SNF. SNF inpatient care is necessary for the following reasons - Additional Information Referrals: Mayra Gayle APRN [Other] (Mayra Lee) Kirk Ward APRN [Advanced Practice Nurse] - (Hosp. follow-up on at 1:[address] [address]. .)
--- NOTE | 2016-09-17 12:05 | Progress Note ---
Subjective: Cherelle is seen today in follow up. She is sitting in the day room at the table. Nursing staff reports she had a episode of hypoglycemia this morning in the 50' s. She drank juice and it is currently up to 116. She denies having symptoms of hypoglycemia, Denies having pain, shortness of breath or GI complaints. BP 120/ 47 Objective Vital signs: Temp Pulse Resp BP Pulse Ox 98.2 F 73 16 120/47 93 09/17/16 08:02 09/17/16 08:02 09/17/16 08:02 09/17/16 08:02 09/17/16 08:02 Weight: 72.3 kg - Constitutional Present: no acute distress, well nourished, well developed, cooperative - Routine HEENT Exam Head: Present: normocephalic Eye: Present: EOMI, PERRL - Routine Respiratory Exam Present: CTA bilaterally - Routine Cardiovascular Exam Present: RRR, S1, S2 - Routine Abdominal Exam Present: soft, normoactive bowel sounds - Routine Back/Spine/Pelvis Exam Back/Spine: Present: full ROM - Routine Skin Exam Present: intact, warm - Routine Neurological Exam Present: alert, CN II-XII intact - Routine Psychiatric Exam Present: unable to assess Results - Labs CBC & Chem 7: 09/08/16 12:54 09/17/16 06:52 Assessment and Plan (1) Chronic schizophrenia Current visit: Yes Status: Chronic (2) Dehydration Current visit: Yes Status: Resolved (3) Type 2 diabetes mellitus Current visit: Yes Status: Chronic (4) Constipation Current visit: Yes Status: Acute (5) Dehydration, moderate Current visit: Yes Status: Acute (6) Foreign body of breast, left, superficial Current visit: Yes Status: Chronic Assessment and Plan: 09/17 Hypernatremia has resolved as sodium today is 143. Lasix remains on hold. Continue to monitor. Blood pressure is well controlled Episode of hypoglycemia this morning in the 50's. Will continue to monitor closely. Currently on Metformin BID. Regarding abnormal TSH, T3 pending. Encourage follow up in the outpatient setting Continue psychiatric care as per Sepsis Assessment - Evaluation Sepsis screening result: No Definite Risk Hospital Course Summary Disclaimer: The visit summary below is not to be considered part of the above Progress Note. Hospital Course: 09/09/16 11:29 Agree with admission to [facility]. Continue with obtaining [facility] workup. Labs and images reviewed. She appears slightly dehydrated, at least based on urine sample. Will hold Lasix since she is not taking in fluids currently. Hold Glucophage since she is not eating; monitor sugars. If she does not begin taking in oral fluids today, would recommend placement of an IV with continuous IV fluids. Check BMP tomorrow morning. Discussed with nursing staff. They will inquire about starting treatment protocol for catatonia. Provide safe environment. Thank you for this consult - we will follow Cherelle along with you during her [facility] course. 09/10/16 12:40 Her catatonic state has resolved and she is able to maintain oral intake and hydration status. Dehydration is improving with oral intake. Her sodium level is minimally elevated, consistent with dehydration. She received 1L of IVF yesterday. Urine retention - required straight catheterization yesterday and had >900 mL urine return. She has been able to void spontaneously now and her post void residual bladder scan was too low to require cath. DM2 - blood sugars are stable. Resume Metformin tomorrow am. HTN - her Lasix has been on hold since she was dehydrated at time of admission. Her BP has been stable. Likely can restart Lasix soon. 09/11/16 15:04 TSH is slightly low at 0.30. Check free T4. Hypernatremia is mild at 145. Anticipate this will continue to improve since she is eating and drinking well. Will recheck labs tomorrow morning. Plan on resuming Lasix which is given Wednesday, Wednesday and Wednesday - start on . Blood sugars have not been hypoglycemic since turning. Metformin. In fact, she has had 2 elevated readings over 200. We'll change her diet to consistent carbohydrate. Psychiatric notes reviewed. 09/13/16 11:28 *Schizophrenia- per attending *Dehydration/Hypernatremia- Encourage PO fluids. Hold Lasix. Follow labs intermittently. Will DC Hep Lock site for now as it is significantly bruised and a bit swollen. BMP AM *Constipation- Continue Colace, PRN laxative. *FB left breast- She has a non-medical nail present in left breast. Consider outpatient follow up. Was present in 2012- unclear on how long it has been present. Avoid mammography at this point on left breast. *Possible hyperthyroid- T3 pending. 09/15/16 11:14 Dehydration and hypernatremia -Na 146 on 09/14 - reassess on 09/17/16 -continue to push fluids -Lasix on hold BP well controlled, even with Lasix being on hold Abnormal TSH -no clinical symptoms to suggest hyperthyroidism -TSH was 0.30 -T4 1.39; T3 pending -f/u outpatient Schizophrenia -per attending 09/17/16 12:05 Hypernatremia has resolved as sodium today is 143. Lasix remains on hold. Continue to monitor. Blood pressure is well controlled Episode of hypoglycemia this morning in the 50's. Will continue to monitor closely. Currently on Metformin BID. Regarding abnormal TSH, T3 pending. Encourage follow up in the outpatient setting Continue psychiatric care as per
--- NOTE | 2016-09-17 20:23 | Neuropsych Progress Note ---
[facility] Subjective Date: 09/17/16 - Sujective/Severity of Illness Medications: Acetaminophen (Tylenol) 650 mg PO Q4HR PRN PRN Reason: Pain Last Admin: 09/16/16 12:19 Dose: 650 mg Acetaminophen (Tylenol Supp) 650 mg [place] Q5H PRN PRN Reason: Pain Last Admin: 09/09/16 05:29 Dose: 650 mg Al Hydroxide/Mg Hydroxide (Maalox Plus) 30 ml PO Q4H PRN PRN Reason: Indigestion Ascorbic Acid (Vitamin C) 500 mg PO BID [facility] Last Admin: 09/17/16 08:37 Dose: 500 mg Benztropine Mesylate (Cogentin) 1 mg PO BID [facility] Last Admin: 09/17/16 08:34 Dose: 1 mg Calcium Carbonate (Calcium) 500 mg PO DAILY [facility] Last Admin: 09/17/16 08:34 Dose: 500 mg Cholecalciferol (Vitamin D-3) 2,000 unit PO DAILY [facility] Last Admin: 09/17/16 08:37 Dose: 2,000 unit Clonazepam (Klonopin) 1 mg PO DAILY [facility] Last Admin: 09/17/16 08:34 Dose: 1 mg Docusate Sodium (Colace) 200 mg PO BID [facility] Last Admin: 09/17/16 08:34 Dose: 200 mg Folic Acid (Folbic) 1 tab PO DAILY [facility] Last Admin: 09/17/16 08:34 Dose: 1 tab Furosemide (Lasix) 20 mg PO MoWeFr [facility] Last Admin: 09/09/16 12:43 Dose: Not Given Guaifenesin (Robitussin Liq) 100 mg PO Q6HR PRN PRN Reason: Cough Haloperidol (Haldol) 0.5 mg PO Q6H PRN PRN Reason: Extreme agitation Haloperidol Lactate (Haldol) 0.5 mg IM Q6H PRN PRN Reason: Extreme agitation Loratadine (Claritin) 10 mg PO ACB PRN PRN Reason: Allergy symptoms Lorazepam (Ativan) 1 mg PO HS [facility] Last Admin: 09/16/16 21:15 Dose: 1 mg Lorazepam (Ativan) 1 mg PO Q6H PRN PRN Reason: Extreme agitation Lorazepam (Ativan Inj) 1 mg IM Q6H PRN PRN Reason: Extreme agitation Magnesium Hydroxide (Mom) 30 ml PO DAILY PRN PRN Reason: Constipation Last Admin: 09/15/16 11:34 Dose: 30 ml Metformin HCl (Glucophage) 500 mg PO BIDBS [facility] Last Admin: 09/17/16 17:30 Dose: 500 mg Multivitamins/Minerals (Therapeutic - M) 1 tab PO DAILY [facility] Last Admin: 09/17/16 08:37 Dose: 1 tab Pharmacy Consult () 1 each XX ONE TIME PRN PRN Reason: PRN orders Ranitidine HCl (Zantac) 150 mg PO 0700 [facility] Last Admin: 09/17/16 08:33 Dose: 150 mg Risperidone (Risperdal) 4 mg PO BID [facility] Last Admin: 09/17/16 08:37 Dose: 4 mg Senna (Senna Lax) 8.6 mg PO BID PRN PRN Reason: Constipation Sodium Chloride (Iv Flush) 10 ml IV PRN PRN PRN Reason: Flushing Last Admin: 09/12/16 12:49 Dose: 10 ml Subjective: Patient seen, chart reviewed and case discussed with nursing staff. Patient has been eating well and sleeps well at night. She has not had verbal or physical aggression and no agitation noted. She has been tolerating her medication and denies any side effect. She denies any suicide or homicide ideation and denies any auditory or visual hallucination. The plan is for discharge back to the facility tomorrow and she will follow up with the facility's psychiatrist. Start Time: 10:30 Stop Time: 10:50 Mental Status Exam Vitals: Last Vital Signs Temp 98 F 09/17/16 16:00 Pulse 81 09/17/16 16:00 Resp 16 09/17/16 16:00 BP 143/64 H 09/17/16 16:00 Pulse Ox 98 09/17/16 16:00 Height: 1.7 m Weight: 72.3 kg - Mental Status Exam Muscle Strength/Tone: Weak Dressing: Casual Grooming: Fair Attitude: Cooperative (intermittent) Motor Activity: Normal Eye Contact: Fair Speech: Normal Volume: Normal Rhythm: Appropriate Rhythm Orientation: Oriented to person, Oriented to place, Oriented to time Mood: Neutral Rate of Thoughts: Appropriate Rate Thought Organization: Disorganized Associations: Illogical Abstract Reasoning: Impaired, concrete Thought Content: Other (Denies paranoia) Perception/Psychotic: Other (Patient observed talking to self, not in distress) Language: Naming Intact Fund of Knowledge: Poor fund of knowledge Memory: Poor-immediate, Poor-recent, Poor-remote Suicidal Ideation: Denies Homicidal Ideation: Denies Insight: Impaired Judgement: Impaired Impulse Control: Fair - Laboratory Result Diagrams: 09/08/16 12:54 09/17/16 06:52 Laboratory Results - last 24 hr 09/17/16 09/17/16 05:56 06:52 Turbidity < 20 Sodium 143 Potassium 4.1 Chloride 105 Carbon Dioxide 27 Anion Gap 11 BUN 19.0 H Creatinine 0.6 L GFR Calculation 99 BUN/Creatinine Ratio 32 H Glucose 86 Glucometer 91 Calculated Osmolality 276 Calcium 9.0 Icterus Index < 2 Specimen Hemolysis < 15 Assessment and Plan (1) Chronic schizophrenia Current visit: Yes Status: Chronic (2) Dehydration, moderate Current visit: Yes Status: Acute (3) Type 2 diabetes mellitus Current visit: Yes Status: Chronic Discharge patient back to the facility tomorrow.
[2016-09-17] MEDS: LORazepam 1 MG TABLET PO SCH (21:34)
[2016-09-18] MEDS: ClonazePAM 1 MG TABLET PO SCH (08:12)
[2016-09-18] MEDS: ASCORBIC ACID 500 MG TABLET PO SCH (08:13)
[2016-09-18] MEDS: RANITIDINE 150 MG TABLET PO SCH (08:13)
[2016-09-18] MEDS: CALCIUM CARBONATE 500 MG TABLET PO SCH (08:13)
[2016-09-18] MEDS: FOLBIC TABLET PO SCH (08:13)
[2016-09-18] MEDS: DOCUSATE SODIUM 100 MG CAPSULE PO SCH (08:13)
[2016-09-18] MEDS: METFORMIN 500 MG TABLET PO SCH (08:13)
[2016-09-18] MEDS: MULTI-VITAMIN + MINERAL TABLET PO SCH (08:13)
[2016-09-18] MEDS: RisperiDONE 2 MG TABLET PO SCH (08:13)
[2016-09-18] MEDS: BENZTROPINE 1 MG TABLET PO SCH (08:13)
--- NOTE | 2016-09-21 11:41 | Neuropsychiatric Disch Summary ---
Discharge Information Date of admission: 09/08/16 15:33 Anticipated date of discharge: 09/18/16 Attending Physician: Blossom Faye MD Primary care physician: Everette Mclean Consults: 09/08/16 17:08 Case Management Consult [CONS] Routine Reason For Exam: H&P medical management Physician Consult [CONS] Routine Consulting Provider: Kelsie Rai Reason For Exam: H&P medical management Ordering Provider has Notified Public Service Officer: No - Discharge Diagnosis (1) Chronic schizophrenia Status: Chronic (2) Dehydration, moderate Status: Acute (3) Type 2 diabetes mellitus Status: Chronic - Laboratory Labs: 09/17/16 06:52 Date of Admission: 09/08/16 15:33 Chief complaint: R History of Present Illness: HPI by Dr. Faye Patient is a 70-year-old female admitted to [facility], [place], operated by [facility] on with catatonia-like features, sent from her [place]. Per reports, patient laid in bed and did not respond to attempts at interview, refused PO meds/food, etc. upon admission. Hospitalist was consulted and started IV fluids on 09/09, Rice was placed for urinary retention as well. This evening when I attempted to see her, patient was sitting up in bed and greeted me with a bright affect, shaking hands and pleasantly making conversation. She was oriented to self only, stating we are in "[place]." She reported feeling well physically as well as emotionally. She denied SI , HI, AVH, paranoia. She stated she felt she could try to take meds or eat now. Patient states odd things such as she's had "quite a rugged time the alst few years" but says she just needed a rest and couldn't stand the bright lights in the other hospital. Hospital Course Hospital course: Patient was admitted from [facility] for relapse of psychotic symptoms on and discharged on 09/18/16. She was placed on suicide and homicide precautions on admission and her home medications re-started. She was followed through out the hospitalization by the hospitalist group who managed her medical co-morbidity. During this stay patient was noted to be dehydrated and had a to receive 1L of NS. Patient was noted to be near catatonic state and was also not sleeping at night. She was started on Lorazepam 1mg po q HS and this was able to help with sleep and catatonia. During the hospitalization, she was noted to be isolating often staring through the glass window. This could be due to the negative symptoms. Patient did not have any self harming behavior and denies any morbid thoughts, suicide ideation , intent or plans to hurt herself or some other person. On the day of discharge, all members of the team agreed that patient was ready for discharge back to the correction. Discharge Plan - Med Rec/Dispo Referrals/Follow Up: Mayra Gayle APRN [Other] (Mayra Gayle APRN will see patient on rounds at the facility for Mental Health follow-up. ) Kirk Ward APRN [Advanced Practice Nurse] - (Hosp. follow-up on at 1:[address] [id number]. .) Sheree Instructions: Schizophrenia (GEN), Type 2 Diabetes in Adults (GEN) Additional Instructions: Discharge Diagnosis:Schizophrenia IN CASE OF PSYCHIATRIC EMERGENCY, CONTACT GENERATIONS STAFF AT [phone] ( available 24 hrs daily.) Prescriptions: New Acetaminophen Supp [Tylenol Supp] 650 mg [place] Q5H PRN supp PRN Reason: Pain Benztropine [Cogentin] 1 mg PO BID Sennosides [Senna Lax] 8.6 mg PO BID PRN PRN Reason: Constipation Vit B12/Folic Acida/Pyridoxine [Folbic] 1 tab PO DAILY Continue raNITIdine HCl [Ranitidine HCl] 150 mg PO DAILY #0 clonazePAM [Clonazepam] 1 mg PO DAILY #0 risperiDONE [Risperidone] 4 mg PO BID #0 Guaifenesin Oral Liq [Robitussin] 5 ml PO Q6HR PRN PRN Reason: Cough Milk of Magnesia [Mom] 30 ml PO DAILY PRN PRN Reason: Constipation Loratadine [Claritin] 10 mg PO DAILY PRN PRN Reason: Allergy Symptoms Calcium Carbonate [[id number]] 500 mg PO DAILY Furosemide [Lasix] 1 tab PO QMWF Cholecalciferol (Vitamin D3) [Vitamin D3] 2 cap PO DAILY Docusate Sodium [Colace] 200 mg PO BID #0 Ascorbate Calcium [Vitamin C] 500 mg PO BID Metformin [Glucophage] 500 mg PO BIDWM Multivit,Calc,Mins/Iron/Folic [Thera-M Tablet] 1 tab PO DAILY Discontinued Quetiapine Fumarate 100 mg PO BID #0 Acetaminophen 650 mg PO Q4HR PRN PRN Reason: Pain ClonazePAM [Klonopin] 1 mg PO PRN PRN PRN Reason: Agitation Benztropine Mesylate 1 mg PO BID #0 Simvastatin 20 mg PO HS #0 Mag Hydrox/Aluminum Hyd/Simeth [Maalox Advanced Suspension] 30 ml PO Q4H PRN PRN Reason: Gastrointestinal Upset - Disposition 04 To [facility] Home/Facility
== END 2016-09-18 09:05 | DRG 885 ==
LOC: ED 12:19 → GEN 15:33
PROVIDERS: ADMIT Psychiatry & Neurology Psychiatry; ATTEND Psychiatry & Neurology Psychiatry

== ENCOUNTER 2016-09-23 17:30 | Inpatient (IN) ==
[2016-09-23] MEDS ORDERED: NS 1,000 ML IV ONE (18:04)
[2016-09-23] MEDS ORDERED: SALINE FLUSH 10ml SYRINGE IVF PRN (18:07)
--- NOTE | 2016-09-23 18:10 | Emergency Department Report ---
General Adult HPI - General Chief complaint: Altered Mental Status <Darryn Corrales Q - 09/25/16 06:46> Stated complaint: unresponsive <Darryn Corrales Q - 09/25/16 06:46> Time Seen by Provider: 09/23/16 17:45 <Darryn Corrales Q - 09/25/16 06:46> Source: family, EMS, RN notes reviewed, old records reviewed <Taina Park E - 09/23/16 18:10> Mode of arrival: EMS <Taina Park E - 09/23/16 18:10> Limitations: altered mental status <Taina Park E - 09/23/16 18:10> - History of Present Illness HPI narrative: Stephanie is a 70-year-old female arrives to [facility] this evening unresponsive and in a catatonic state. Patient has a known history of schizophrenia and has had episodes in the past which she has become unresponsive and catatonic. The last incident of this was 09/09/2016. At that time patient was cleared medically and [facility] to [facility] and was discharged on September 18. Patient has since that time has been at [facility] and by sister's report had returned to her baseline Much of the history is coming from her sister at this time, she states that within the last 24 hours patient has become decreasingly less responsive and more catatonic. She reports that this happens to patient when she is under stress. assisted staff reports to the sister that the patient progressively became less interactive as the day went on. They were able to "get her to the shower" this morning however from that point on she had become much less responsive. Patient was incontinent of urine today which apparently is not the norm for the patient. She is also refuses to eat or drink fluids today. Because of this, the patient was transported to [facility] for evaluation. Patient is unresponsive at the time of my exam and with rigid extremities. She clinches her eyes shut when I try to examine her pupils and will not open her mouth. Patient has minimal response to sternal rub. Vital signs are stable and room air oxygenation is 92-94% , Respirations are regular and non labored. Patients sister from [place] is at bedside and is the one who provides most of patients history. Old charts are also reviewed. There is no evidence or reports of recent falls. Staff at the halfway also feel very confident that patient has not received any sedating medications that would have precipitated this change in mental status. Patient will be evaluated and medically cleared and will be screened by [facility] . <Taina Park - 09/23/16 18:32> MD complaint: unresponsiveness <Taina Park - 09/23/16 18:10> Onset (ago): hour(s) <Taina Park - 09/23/16 18:10> - Related Data Home Medications Medication Instructions Recorded Confirmed Docusate Sodium [Colace] 200 mg PO BID #0 08/19/12 09/23/16 clonazePAM [Clonazepam] 1 mg PO DAILY #0 08/19/12 09/23/16 raNITIdine HCl [Ranitidine HCl] 150 mg PO DAILY #0 08/19/12 09/23/16 risperiDONE [Risperidone] 4 mg PO BID #0 08/19/12 09/23/16 Furosemide [Lasix] 20 mg PO MOWEFR@08 09/08/16 09/23/16 Guaifenesin Oral Liq [Robitussin] 5 ml PO Q6HR PRN 09/08/16 09/23/16 Loratadine [Claritin] 10 mg PO DAILY PRN 09/08/16 09/23/16 Metformin [Glucophage] 500 mg PO BIDWM 09/08/16 09/23/16 Milk of Magnesia [Mom] 30 ml PO DAILY PRN 09/08/16 09/23/16 Cholecalciferol (Vitamin D3) 2,000 unit PO DAILY 09/09/16 09/23/16 [Vitamin D3] Acetaminophen 650 mg PO Q4H PRN 09/23/16 09/23/16 Ascorbate Calcium [Vitamin C] 500 mg PO BID 09/23/16 09/23/16 Calcium 500 + D [Os Benny-D 500] 1 tab PO DAILY 09/23/16 09/23/16 ClonazePAM [Klonopin] 1 mg PO DAILY PRN 09/23/16 09/23/16 Mag Hydrox/Aluminum Hyd/Simeth 30 ml PO Q4H PRN 09/23/16 09/23/16 [Maalox Advanced Suspension] Multivitamin [Multivitamins] 1 tab PO DAILY 09/23/16 09/23/16 Quetiapine Fumarate [Seroquel] 100 mg PO BID 09/23/16 09/23/16 Simvastatin [Simvastatin] 20 mg PO HS 09/23/16 09/23/16 Previous Rx's Medication Instructions Recorded Acetaminophen Supp [Tylenol Supp] 650 mg TX Q5H PRN supp 09/17/16 Benztropine [Cogentin] 1 mg PO BID 09/17/16 Sennosides [Senna Lax] 8.6 mg PO BID PRN 09/17/16 Vit B12/Folic Acida/Pyridoxine 1 tab PO DAILY 09/17/16 [Folbic] <Darryn Corrales Q - 09/25/16 06:46> Allergies Allergy/AdvReac Type Severity Reaction Status Date / Time No Known Drug Allergies Allergy Verified 09/23/16 18:12 <Darryn Corrales Q - 09/25/16 06:46> Review of Systems Limitations: ROS unobtainable due to patient's medical condition <Taina aPrk - 09/23/16 18:35> [facility] Patient Stated Medical History Cataracts Yes Diabetes Mellitus Type 2 Yes Gastroesophageal Reflux Yes Disease Other GI Yes: IBS Schizophrenia Yes <Darryn Corrales Q - 09/25/16 06:46> Surgical History: sigmoid colon resection and rectal sacroprexy (2007), Right ovarian cyst removed, colonoscopy, 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 <Taina Park E - 09/23/16 18:10> - Social History Smoking status: Never smoker <Taina Park - 09/23/16 18:10> Physical Exam - Limitations Limitations: altered mental status <Taina Park - 09/23/16 18:35> - General General appearance: other (catatonic; unresponsive; maintaining airway ) < Taina Park - 09/23/16 18:35> - Normal Exams: Head:: Normocephalic without trauma <Taina Park - 09/23/16 18:35> ENMT:: No facial trauma <Taina Park - 09/23/16 18:35> Chest/Respirations:: Clear all tariq, with good airflow, and symmetry bilaterally <Taina Park - 09/23/16 18:35> Cardiovascular:: Regular rate and rhythm, without murmur or gallop, Pulses 2+ all extremities, capillary refill <Taina Park 09/23/16 18:35> Abdomen:: Bowel sounds positive, soft, non-tender, non-distended <Taina Park 09/23/16 18:35> Lymphatic:: No lymphadenopathy <Taina Park 09/23/16 18:35> Musculoskeletal:: No tenderness, or deformity noted, all extremities <Taina Park 09/23/16 18:35> Integumentary:: No rashes, hives <Taina Park 09/23/16 18:35> - Extremities Exam Extremities exam: Present: normal inspection <Taina Park 09/23/16 18: 35> - Skin Skin exam: Present: warm, dry, intact, normal color. Absent: rash, cyanosis, diaphoresis <Taina Park 09/23/16 18:35> - Neurological Exam Neurological exam: Absent: alert, oriented X3 <Taina Park 09/23/16 18: 35> - Psychiatric Psychiatric exam: Present: other (catatonic and unresponsive). Absent: normal affect, normal mood <Taina Park 09/23/16 18:38> Course - Reevaluation(s) Reevaluation #1: Remains unresponsive; was straight cathed without response from patient. VSS. CBC and CMP unremarkable; UA does indicate nitrites and 10-20 WBC ; no indications for sepsis. Rocephin 1 gm IV given. <Taina Park 09/23/16 19:09> Time: 19:05 <Taina Park 09/23/16 19:06> Reevaluation #2: farmworker cranberry from [facility] here to evaluate patient. No acute changes on the head CT scan. Has been hydrated with one liter NS and rocephin given. <Taina Park 09/23/16 19:19> Time: 19:18 <Taina Park 09/23/16 19:19> Vital Signs Temperature 97.9 F 09/23/16 17:30 Pulse Rate 76 09/23/16 17:30 Respiratory Rate 16 09/23/16 17:30 Blood Pressure 136/64 09/23/16 17:30 Pulse Oximetry 93 09/23/16 17:30 Temperature 97.6 F 09/25/16 00:00 Pulse Rate 91 09/25/16 00:00 Respiratory Rate 18 09/25/16 00:00 Blood Pressure 143/59 H 09/25/16 00:00 Pulse Oximetry 95 09/24/16 19:52 <Darryn Corrales - 09/25/16 06:46> Medical Decision Making - MDM Narrative Medical decision making narrative: Due to patient's alteration in mental status and catatonic state, he will be necessary to obtain medical clearance prior to [facility] screening <Taina Park - 09/23/16 19:23> - Lab Data Result diagrams: 09/23/16 18:30 09/25/16 05:18 <Darryn Corrales Q - 09/25/16 06:46> Lab Results 09/23/16 09/23/16 09/23/16 Range/Units 18:25 18:30 18:30 WBC 10.0 (4.5-11.0) T/MM3 RBC 4.60 (4.00-5.20) M/MM3 Hgb 14.7 (12-16) GM/DL Hct 44.7 (36-46) % MCV 97.2 (80-100) UM3 MCH 32.0 (26-34) UUG MCHC 32.9 (31-37) GM/DL RDW Std Deviation 45.4 (36.9-50.2) FL Plt Count 212 (130-400) T/MM3 MPV 10.7 (9.4-12.4) UM3 Immature Gran % (Auto) 0.2 (0.0-0.5) % Neut % (Auto) 74.5 H (33-66) % Lymph % (Auto) 16.3 L (23-45) % Villalba % (Auto) 7.7 (0-9.0) % Eos % (Auto) 1.2 (0-4) % Baso % (Auto) 0.1 (0-2) % Neut # 7.5 (1.8-7.7) T/MM3 Lymph # 1.6 (1-4.8) T/MM3 Villalba # 0.8 (0-0.8) T/MM3 Eos # 0.1 (0-0.5) T/MM3 Baso # 0.0 (0-0.2) T/MM3 Abs Immat Gran (auto) 0.02 (0.00-0.03) T/MM3 Turbidity < 20 (0-20) Sodium 145 H (134-144) MEQ/L Potassium 3.4 L (3.6-5) MEQ/L Chloride 105 (98-107) MEQ/L Carbon Dioxide 27 (22-30) MEQ/L Anion Gap 13 (5-15) MEQ/L BUN 13.0 (7-17) MG/DL Creatinine 0.6 L (0.7-1.2) MG/DL GFR Calculation 99 BUN/Creatinine Ratio 22 (6-26) RATIO Glucose 102 (65-110) MG/DL Glucometer 109 (65-110) mg/dL Calculated Osmolality 279 (261-280) MOSM/KG Calcium 9.0 (8.4-10.2) MG/DL Total Bilirubin 0.60 (0.20-1.30) MG/DL Icterus Index < 2 (0-7) AST 28 (14-36) U/L ALT 37 (9-52) U/L Alkaline Phosphatase 96 (38-126) U/L Troponin I < 0.012 (0-0.12) ng/ml Total Protein 7.2 (6.3-8.2) G/DL Albumin 4.2 (3.5-5.0) G/DL Globulin 3.0 (2.4-3.6) G/DL Albumin/Globulin Ratio 1.4 (1.1-2.2) RATIO TSH 0.67 D (0.47-4.68) MIU/L Specimen Hemolysis < 15 (0-25) Ur Collection Type Urine Color (YELLOW) Urine Clarity Urine pH (5.0-8.0) Ur Specific [place] (1.015-1.025) Urine Protein (NEGATIVE) Urine Glucose (UA) (NEGATIVE) Urine Ketones (NEGATIVE) Urine Occult Blood (NEGATIVE) Urine Nitrate (NEGATIVE) Urine Bilirubin (NEGATIVE) Urine Urobilinogen (NORMAL) EU/DL Ur Leukocyte Esterase (NEGATIVE) Urine RBC (0-3) /HPF Urine WBC (0-5) /HPF Urine Bacteria (NEGATIVE) Ur Culture Indicated? Salicylates (2-20) MG/DL Urine Opiates Screen ng/mL Ur Oxycodone Screen ng/mL Urine Methadone Screen ng/mL Ur Propoxyphene Screen ng/mL Acetaminophen < 10 L (10-30) UG/ML Ur Barbiturates Screen ng/mL U Tricyclic Antidepress ng/mL Ur Phencyclidine Scrn ng/mL Ur Amphetamines Screen ng/mL U Methamphetamines Scrn ng/mL U Benzodiazepines Scrn ng/mL Urine Cocaine Screen ng/mL U Cannabinoids Screen ng/mL Alcohol, Quantitative (<10) MG/DL 09/23/16 09/23/16 09/23/16 Range/Units 18:30 18:37 18:37 WBC (4.5-11.0) T/MM3 RBC (4.00-5.20) M/MM3 Hgb (12-16) GM/DL Hct (36-46) % MCV (80-100) UM3 MCH (26-34) UUG MCHC (31-37) GM/DL RDW Std Deviation (36.9-50.2) FL Plt Count (130-400) T/MM3 MPV (9.4-12.4) UM3 Immature Gran % (Auto) (0.0-0.5) % Neut % (Auto) (33-66) % Lymph % (Auto) (23-45) % Villalba % (Auto) (0-9.0) % Eos % (Auto) (0-4) % Baso % (Auto) (0-2) % Neut # (1.8-7.7) T/MM3 Lymph # (1-4.8) T/MM3 Villalba # (0-0.8) T/MM3 Eos # (0-0.5) T/MM3 Baso # (0-0.2) T/MM3 Abs Immat Gran (auto) (0.00-0.03) T/MM3 Turbidity (0-20) Sodium (134-144) MEQ/L Potassium (3.6-5) MEQ/L Chloride (98-107) MEQ/L Carbon Dioxide (22-30) MEQ/L Anion Gap (5-15) MEQ/L BUN (7-17) MG/DL Creatinine (0.7-1.2) MG/DL GFR Calculation BUN/Creatinine Ratio (6-26) RATIO Glucose (65-110) MG/DL Glucometer (65-110) mg/dL Calculated Osmolality (261-280) MOSM/KG Calcium (8.4-10.2) MG/DL Total Bilirubin (0.20-1.30) MG/DL Icterus Index (0-7) AST (14-36) U/L ALT (9-52) U/L Alkaline Phosphatase (38-126) U/L Troponin I (0-0.12) ng/ml Total Protein (6.3-8.2) G/DL Albumin (3.5-5.0) G/DL Globulin (2.4-3.6) G/DL Albumin/Globulin Ratio (1.1-2.2) RATIO TSH (0.47-4.68) MIU/L Specimen Hemolysis (0-25) Ur Collection Type Urine, catheter Urine Color Yellow (YELLOW) Urine Clarity Sl cloudy Urine pH 5.5 (5.0-8.0) Ur Specific [place] 1.015 (1.015-1.025) Urine Protein Negative (NEGATIVE) Urine Glucose (UA) Negative (NEGATIVE) Urine Ketones Trace A (NEGATIVE) Urine Occult Blood Trace-intact (NEGATIVE) Urine Nitrate Positive A (NEGATIVE) Urine Bilirubin Negative (NEGATIVE) Urine Urobilinogen 0.2 (NORMAL) EU/DL Ur Leukocyte Esterase 1+ A (NEGATIVE) Urine RBC 1-3 (0-3) /HPF Urine WBC 10-20 H (0-5) /HPF Urine Bacteria 2+ H (NEGATIVE) Ur Culture Indicated? Cult reflexed &setup Salicylates < 1.0 L (2-20) MG/DL Urine Opiates Screen Negative ng/mL Ur Oxycodone Screen Negative ng/mL Urine Methadone Screen Negative ng/mL Ur Propoxyphene Screen Negative ng/mL Acetaminophen (10-30) UG/ML Ur Barbiturates Screen Negative ng/mL U Tricyclic Antidepress Positive ng/mL Ur Phencyclidine Scrn Negative ng/mL Ur Amphetamines Screen Negative ng/mL U Methamphetamines Scrn Negative ng/mL U Benzodiazepines Scrn Negative ng/mL Urine Cocaine Screen Negative ng/mL U Cannabinoids Screen Negative ng/mL Alcohol, Quantitative <10 (<10) MG/DL <Darryn Corrales Q - 09/25/16 06:46> Lab Results 09/23/16 09/23/16 09/23/16 Range/Units 18:25 18:30 18:30 WBC 10.0 (4.5-11.0) T/MM3 RBC 4.60 (4.00-5.20) M/MM3 Hgb 14.7 (12-16) GM/DL Hct 44.7 (36-46) % MCV 97.2 (80-100) UM3 MCH 32.0 (26-34) UUG MCHC 32.9 (31-37) GM/DL RDW Std Deviation 45.4 (36.9-50.2) FL Plt Count 212 (130-400) T/MM3 MPV 10.7 (9.4-12.4) UM3 Immature Gran % (Auto) 0.2 (0.0-0.5) % Neut % (Auto) 74.5 H (33-66) % Lymph % (Auto) 16.3 L (23-45) % Villalba % (Auto) 7.7 (0-9.0) % Eos % (Auto) 1.2 (0-4) % Baso % (Auto) 0.1 (0-2) % Neut # 7.5 (1.8-7.7) T/MM3 Lymph # 1.6 (1-4.8) T/MM3 Villalba # 0.8 (0-0.8) T/MM3 Eos # 0.1 (0-0.5) T/MM3 Baso # 0.0 (0-0.2) T/MM3 Abs Immat Gran (auto) 0.02 (0.00-0.03) T/MM3 Turbidity < 20 (0-20) Sodium 145 H (134-144) MEQ/L Potassium 3.4 L (3.6-5) MEQ/L Chloride 105 (98-107) MEQ/L Carbon Dioxide 27 (22-30) MEQ/L Anion Gap 13 (5-15) MEQ/L BUN 13.0 (7-17) MG/DL Creatinine 0.6 L (0.7-1.2) MG/DL GFR Calculation 99 BUN/Creatinine Ratio 22 (6-26) RATIO Glucose 102 (65-110) MG/DL Glucometer 109 (65-110) mg/dL Calculated Osmolality 279 (261-280) MOSM/KG Calcium 9.0 (8.4-10.2) MG/DL Total Bilirubin 0.60 (0.20-1.30) MG/DL Icterus Index < 2 (0-7) AST 28 (14-36) U/L ALT 37 (9-52) U/L Alkaline Phosphatase 96 (38-126) U/L Troponin I < 0.012 (0-0.12) ng/ml Total Protein 7.2 (6.3-8.2) G/DL Albumin 4.2 (3.5-5.0) G/DL Globulin 3.0 (2.4-3.6) G/DL Albumin/Globulin Ratio 1.4 (1.1-2.2) RATIO TSH 0.67 D (0.47-4.68) MIU/L Specimen Hemolysis < 15 (0-25) Ur Collection Type Urine Color (YELLOW) Urine Clarity Urine pH (5.0-8.0) Ur Specific [place] (1.015-1.025) Urine Protein (NEGATIVE) Urine Glucose (UA) (NEGATIVE) Urine Ketones (NEGATIVE) Urine Occult Blood (NEGATIVE) Urine Nitrate (NEGATIVE) Urine Bilirubin (NEGATIVE) Urine Urobilinogen (NORMAL) EU/DL Ur Leukocyte Esterase (NEGATIVE) Urine RBC (0-3) /HPF Urine WBC (0-5) /HPF Urine Bacteria (NEGATIVE) Ur Culture Indicated? Salicylates (2-20) MG/DL Urine Opiates Screen ng/mL Ur Oxycodone Screen ng/mL Urine Methadone Screen ng/mL Ur Propoxyphene Screen ng/mL Acetaminophen < 10 L (10-30) UG/ML Ur Barbiturates Screen ng/mL U Tricyclic Antidepress ng/mL Ur Phencyclidine Scrn ng/mL Ur Amphetamines Screen ng/mL U Methamphetamines Scrn ng/mL U Benzodiazepines Scrn ng/mL Urine Cocaine Screen ng/mL U Cannabinoids Screen ng/mL Alcohol, Quantitative (<10) MG/DL 09/23/16 09/23/16 09/23/16 Range/Units 18:30 18:37 18:37 WBC (4.5-11.0) T/MM3 RBC (4.00-5.20) M/MM3 Hgb (12-16) GM/DL Hct (36-46) % MCV (80-100) UM3 MCH (26-34) UUG MCHC (31-37) GM/DL RDW Std Deviation (36.9-50.2) FL Plt Count (130-400) T/MM3 MPV (9.4-12.4) UM3 Immature Gran % (Auto) (0.0-0.5) % Neut % (Auto) (33-66) % Lymph % (Auto) (23-45) % Villalba % (Auto) (0-9.0) % Eos % (Auto) (0-4) % Baso % (Auto) (0-2) % Neut # (1.8-7.7) T/MM3 Lymph # (1-4.8) T/MM3 Villalba # (0-0.8) T/MM3 Eos # (0-0.5) T/MM3 Baso # (0-0.2) T/MM3 Abs Immat Gran (auto) (0.00-0.03) T/MM3 Turbidity (0-20) Sodium (134-144) MEQ/L Potassium (3.6-5) MEQ/L Chloride (98-107) MEQ/L Carbon Dioxide (22-30) MEQ/L Anion Gap (5-15) MEQ/L BUN (7-17) MG/DL Creatinine (0.7-1.2) MG/DL GFR Calculation BUN/Creatinine Ratio (6-26) RATIO Glucose (65-110) MG/DL Glucometer (65-110) mg/dL Calculated Osmolality (261-280) MOSM/KG Calcium (8.4-10.2) MG/DL Total Bilirubin (0.20-1.30) MG/DL Icterus Index (0-7) AST (14-36) U/L ALT (9-52) U/L Alkaline Phosphatase (38-126) U/L Troponin I (0-0.12) ng/ml Total Protein (6.3-8.2) G/DL Albumin (3.5-5.0) G/DL Globulin (2.4-3.6) G/DL Albumin/Globulin Ratio (1.1-2.2) RATIO TSH (0.47-4.68) MIU/L Specimen Hemolysis (0-25) Ur Collection Type Urine, catheter Urine Color Yellow (YELLOW) Urine Clarity Sl cloudy Urine pH 5.5 (5.0-8.0) Ur Specific [place] 1.015 (1.015-1.025) Urine Protein Negative (NEGATIVE) Urine Glucose (UA) Negative (NEGATIVE) Urine Ketones Trace A (NEGATIVE) Urine Occult Blood Trace-intact (NEGATIVE) Urine Nitrate Positive A (NEGATIVE) Urine Bilirubin Negative (NEGATIVE) Urine Urobilinogen 0.2 (NORMAL) EU/DL Ur Leukocyte Esterase 1+ A (NEGATIVE) Urine RBC 1-3 (0-3) /HPF Urine WBC 10-20 H (0-5) /HPF Urine Bacteria 2+ H (NEGATIVE) Ur Culture Indicated? Cult reflexed &setup Salicylates < 1.0 L (2-20) MG/DL Urine Opiates Screen Negative ng/mL Ur Oxycodone Screen Negative ng/mL Urine Methadone Screen Negative ng/mL Ur Propoxyphene Screen Negative ng/mL Acetaminophen (10-30) UG/ML Ur Barbiturates Screen Negative ng/mL U Tricyclic Antidepress Positive ng/mL Ur Phencyclidine Scrn Negative ng/mL Ur Amphetamines Screen Negative ng/mL U Methamphetamines Scrn Negative ng/mL U Benzodiazepines Scrn Negative ng/mL Urine Cocaine Screen Negative ng/mL U Cannabinoids Screen Negative ng/mL Alcohol, Quantitative <10 (<10) MG/DL <VivianTaina E 09/23/16 18:28> - EKG Data EKG #1 EKG shows normal: sinus rhythm <VivianTaina E 09/23/16 19:25> Rate: normal <VivianTaina E 09/23/16 19:25> Rhythm: NSR <VivianTaina E 09/23/16 19:25> [place]/QRS: normal <VivianTaina E 09/23/16 19:28> EKG #2 EKG attestation: Yes: I reviewed and interpreted this EKG. <Darryn Corrales Q - 09/25/16 06:46> EKG shows normal: sinus rhythm <Darryn Corrales Q - 09/25/16 06:46> Rate: normal <Darryn Corrales Q - 09/25/16 06:46> Rhythm: NSR <Darryn Corrales Q - 09/25/16 06:46> [place]/QRS: normal <Darryn Corrales Q - 09/25/16 06:46> Interpretation: no acute changes <Darryn Corrales Q - 09/25/16 06:46> Disposition Clinical Impression: Chronic schizophrenia Altered mental status Qualifiers: Altered mental status type: unspecified Qualified Code(s): R41.82 - Altered mental status, unspecified <Darryn Corrales Q - 09/25/16 06:46> Disposition: [facility] To [facility] <Darryn Corrales Q - 09/25/16 06:46> Condition: Stable <Darryn Corrales Q - 09/25/16 06:46> Instructions: <Darryn Corrales Q - 09/25/16 06:46> Prescriptions: No Action raNITIdine HCl [Ranitidine HCl] 150 mg PO DAILY #0 clonazePAM [Clonazepam] 1 mg PO DAILY #0 risperiDONE [Risperidone] 4 mg PO BID #0 Guaifenesin Oral Liq [Robitussin] 5 ml PO Q6HR PRN PRN Reason: Cough Milk of Magnesia [Mom] 30 ml PO DAILY PRN PRN Reason: Constipation Loratadine [Claritin] 10 mg PO DAILY PRN PRN Reason: Allergy Symptoms Furosemide [Lasix] 20 mg PO MOWEFR@08 Cholecalciferol (Vitamin D3) [Vitamin D3] 2,000 unit PO DAILY Acetaminophen Supp [Tylenol Supp] 650 mg [place] Q5H PRN supp PRN Reason: Pain Benztropine [Cogentin] 1 mg PO BID Sennosides [Senna Lax] 8.6 mg PO BID PRN PRN Reason: Constipation Vit B12/Folic Acida/Pyridoxine [Folbic] 1 tab PO DAILY Acetaminophen 650 mg PO Q4H PRN PRN Reason: Pain ClonazePAM [Klonopin] 1 mg PO DAILY PRN PRN Reason: Prn Orders Simvastatin [Simvastatin] 20 mg PO HS Ascorbate Calcium [Vitamin C] 500 mg PO BID Calcium 500 + D [Os Benny-D 500] 1 tab PO DAILY Multivitamin [Multivitamins] 1 tab PO DAILY Docusate Sodium [Colace] 200 mg PO BID #0 Metformin [Glucophage] 500 mg PO BIDWM Mag Hydrox/Aluminum Hyd/Simeth [Maalox Advanced Suspension] 30 ml PO Q4H PRN PRN Reason: Prn Orders Quetiapine Fumarate [Seroquel] 100 mg PO BID <Darryn Corrales Q - 09/25/16 06 :46> Referrals: Everette Mclean [Primary Care Provider] - <Darryn Corrales Q - 09/25/16 06:46> Forms: <Darryn Corrales Q - 09/25/16 06:46> Time of Disposition: 20:35 <Taina Park - 09/23/16 20:35> - Seen By: midlevel and physician <Taina Park - 09/23/16 20:37>
[2016-09-23] MEDS ORDERED: CEFTRIAXONE (ER USE ONLY) 1 GM in NS 100 ML IV ONE (19:01)
[2016-09-23] MEDS ORDERED: MAG-AL + SIM ORAL LIQUID 30ml PO PRN (20:00)
[2016-09-23] MEDS ORDERED: SENNOSIDES 8.6 MG TABLET PO PRN (20:00)
[2016-09-23 23:43] VITALS: BMI 23.3
[2016-09-24] MEDS: SIMVASTATIN 20 MG TABLET PO SCH ×3 (00:27→23:34)
[2016-09-24] MEDS: BENZTROPINE 1 MG TABLET PO SCH ×3 (00:27→20:30)
--- NOTE | 2016-09-24 08:17 | CT Scan Report ---
Indication: decreased mental status PROCEDURE: CT head/brain wo con: Encounter: Initial Comparison: August 19, 2012 Technique: Axial CT images through the head were performed without contrast. Iterative Reconstruction dose reducing technique was utilized. FINDINGS: The ventricles are of normal size, shape, and contour for the patient's age. There are scattered areas of low attenuation in the white matter which most likely represent changes from chronic microvascular ischemia. The brainstem, cerebellum, and cerebral hemispheres otherwise have a normal morphology and CT attenuation. There is no evidence of midline displacement. No hemorrhage, signs of acute territorial stroke, mass effect, mass lesions, or edema is evident. The visualized portions of the skull base, midface, and calvarium demonstrate no abnormality. The paranasal sinuses are well aerated and free of significant disease. The tympanic and mastoid cavities appear normal. IMPRESSION: No acute intracranial abnormality or hemorrhage. There is a preliminary report by [facility]. .
[2016-09-24] MEDS: RANITIDINE 150 MG TABLET PO SCH (09:15)
[2016-09-24] MEDS: FOLBIC TABLET PO SCH (09:15)
[2016-09-24] MEDS: CALCIUM 500 + VIT D 200 TABLET PO SCH (09:15)
[2016-09-24] MEDS: MULTI-VITAMIN PLAIN TABLET PO SCH (09:15)
[2016-09-24] MEDS: ClonazePAM 1 MG TABLET PO SCH (09:16)
[2016-09-24] MEDS: RisperiDONE 2 MG TABLET PO SCH ×3 (09:17→20:30)
[2016-09-24] MEDS: ASCORBIC ACID 500 MG TABLET PO SCH ×3 (09:17→20:30)
[2016-09-24] MEDS: METFORMIN 500 MG TABLET PO SCH ×2 (09:18→17:32)
--- NOTE | 2016-09-24 14:03 | History & Physical Report ---
History of Present Illness Date: 09/24/16 Chief complaint: catatonic, schizophrenic HPI: Cherelle Bone is a 70 year old female who presented to [facility] [place] [place] ED unresponsive and in a catatonic state on the evening of 09/23/16. She has a known history of schizophrenia and has had episodes with similar symptoms in the past. She was recently admitted to [facility] unit due to similar symptoms on 09/08/16 and was discharged to [facility] on 09/18/16. Per ED documentation, the sister reported that Cherelle had cried when she returned to the facility but returned to her baseline within 24 hours. By report, she had been doing well until 09/22/16 at which time she became more withdrawn, less responsive and more catatonic. Per the sister's report, Cherelle has historically demonstrated similar symptoms when under stress. long term staff reported that the patient progressively became less interactive as the day went on following her shower in the AM. She was incontinent of urine which is uncommon for the patient as well as refused oral intake of food and drink. Because of her increasing catatonic state, she was transported to [facility] [place] [place] ED for further evaluation. Upon arrival in the ED, she was rigid and and refused to respond or participate in the exam, clinching her eyes shut and refusing to open her mouth. Minimal response to sternal rub. Vital signs were stable without evidence of distress. Due to her change in behaviors and catatonic state, she was screened and accepted into [facility] for further psychiatric evaluation and treatment. The hospitalist service was consulted for medical management as she has a history of diabetes, GERD and IBS. On exam, she is seen while resting in her bed and is alert and orientated to person. She smiles on introductions and replies that she is feeling much better. She does become slightly withdrawn and refuses to engage in conversation when asked about her symptoms yesterday. She does admit that she became "severely depressed" yesterday but then will not engage in more conversation regarding the topic. She is easily redirected and continues discussing more neutral topics such as her breakfast and the weather. She denies any complaints or concerns including no pain, headache, change in vision , chest pain, shortness of breath, abdominal pain, nausea, vomiting or dysuria. No recent illness or fever. Cardiac exam reveals regular rate and rhythm and lungs are clear to auscultation. Abdomen is soft, nontender with active bowel sounds. Trace edema noted to bilateral lower extremities. Review of Systems All systems: reviewed and no additional remarkable complaints except as stated Review of systems: patient is poor historian - Constitutional Constitutional: Present: weight loss. Absent: chills, fever(s), headache(s), night sweats - EENMT Eyes: Absent: blurry vision, photophobia Balance: Absent: falling to one side Nose: Absent: nosebleeds Mouth/Throat: Absent: sore throat, changes in swallowing - Cardiovascular Cardiovascular: Absent: chest pain, palpitations, syncope, dyspnea on exertion Vascular: Absent: pallor of an extermity, pedal edema - Respiratory Respiratory: Absent: cough, dyspnea, hemoptysis, dyspnea on exertion, wheezing, pain on inspiration, chest congestion - Gastrointestinal Gastrointestinal: Absent: abdominal pain, diarrhea, nausea, vomiting - Musculoskeletal Musculoskeletal: Absent: back pain, neck pain - Integumentary/Breasts Integumentary: Absent: lesions, jaundice - Neurological Neurological: Absent: convulsions, headache(s) - Psychiatric Psychiatric: Present: behavioral changes, depression Psychiatric Comments: catatonic - Endocrine Endocrine: Absent: excessive sweating, palpitations - Hematologic/Lymphatic Hematologic/Lymphatic: Present: easy bruising - Allergic/Immunologic Allergic/Immunologic: Absent: itchy eyes PFSH Patient Stated Medical History Cataracts Diabetes Mellitus Type 2 Gastroesophageal Reflux IBS Schizophrenia Dyslipidemia Surgical History: sigmoid colon resection and rectal sacroprexy (2007), Right ovarian cyst removed, colonoscopy, 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 Father, , age unknown, DM. - Social History Smoking status: Never smoker Substance use type: does not use Alcohol intake frequency: does not drink Housing: shelter Household members: none Current occupational status: disabled Does patient use chewing tobacco?: No Current residence: [place] Medications Home Medications Medication Instructions Recorded Confirmed Type Docusate Sodium [Colace] 200 mg PO BID #0 08/19/12 09/23/16 History clonazePAM [Clonazepam] 1 mg PO DAILY #0 08/19/12 09/23/16 History raNITIdine HCl [Ranitidine HCl] 150 mg PO DAILY #0 08/19/12 09/23/16 History risperiDONE [Risperidone] 4 mg PO BID #0 08/19/12 09/23/16 History Furosemide [Lasix] 20 mg PO MOWEFR@08 09/08/16 09/23/16 History Guaifenesin Oral Liq [Robitussin] 5 ml PO Q6HR PRN 09/08/16 09/23/16 History Loratadine [Claritin] 10 mg PO DAILY PRN 09/08/16 09/23/16 History Metformin [Glucophage] 500 mg PO BIDWM 09/08/16 09/23/16 History Milk of Magnesia [Mom] 30 ml PO DAILY PRN 09/08/16 09/23/16 History Cholecalciferol (Vitamin D3) 2,000 unit PO DAILY 09/09/16 09/23/16 History [Vitamin D3] Acetaminophen 650 mg PO Q4H PRN 09/23/16 09/23/16 History Ascorbate Calcium [Vitamin C] 500 mg PO BID 09/23/16 09/23/16 History Calcium 500 + D [Os Benny-D 500] 1 tab PO DAILY 09/23/16 09/23/16 History ClonazePAM [Klonopin] 1 mg PO DAILY PRN 09/23/16 09/23/16 History Mag Hydrox/Aluminum Hyd/Simeth 30 ml PO Q4H PRN 09/23/16 09/23/16 History [Maalox Advanced Suspension] Multivitamin [Multivitamins] 1 tab PO DAILY 09/23/16 09/23/16 History Quetiapine Fumarate [Seroquel] 100 mg PO BID 09/23/16 09/23/16 History Simvastatin [Simvastatin] 20 mg PO HS 09/23/16 09/23/16 History Allergies Allergy/AdvReac Type Severity Reaction Status Date / Time No Known Drug Allergies Allergy Verified 09/23/16 18:12 Exam Vital Signs: Temperature 97.8 F 09/24/16 08:00 Pulse Rate 84 09/24/16 08:00 Respiratory Rate 16 09/24/16 08:00 Blood Pressure 117/78 09/24/16 08:00 Pulse Oximetry 94 09/24/16 08:00 Oxygen Delivery Method Room Air Height: 5 ft 7 in Weight: 148 lb 12.992 oz Body Mass Index: 23.3 - Constitutional Present: no acute distress, well nourished, well developed, cooperative - Routine HEENT Exam Head: Present: normocephalic, atraumatic. Absent: abrasion, laceration, hematoma Eye: Present: cataracts. Absent: conjunctival icterus, scleral injection ENT: Present: mucous membranes moist, nares patent - Routine Neck Exam Present: supple, full ROM, trachea midline - Routine Chest/Breast/Axilla Exam Chest wall: Absent: tenderness - Routine Respiratory Exam Present: CTA bilaterally. Absent: accessory muscle use, dyspnea, rales, respiratory distress, rhonchi, stridor, wheezes, crackles - Routine Cardiovascular Exam Present: RRR, S1, S2 - Routine Abdominal Exam Present: soft, normoactive bowel sounds, non distended, non tender. Absent: rebound, guarding - Routine Extremities Exam Present: edema (trace), full ROM, pulses intact. Absent: calf tenderness - Routine Back/Spine/Pelvis Exam Back/Spine: Present: full ROM. Absent: CVA tenderness, erythema - Routine Skin Exam Present: intact, dry, warm. Absent: erythema, jaundice - Routine Neurological Exam Present: alert, moving all extremities, hearing grossly intact, normal speech - Routine Psychiatric Exam Present: cooperative Results - Labs CBC & Chem 7: 09/23/16 18:30 09/23/16 18:30 Assessment and Plan (1) UTI (urinary tract infection) with pyuria Current visit: Yes Status: Acute (2) Neurocognitive disorder Current visit: Yes Status: Acute (3) Hypokalemia Current visit: Yes Status: Acute (4) Dehydration with hypernatremia Current visit: Yes Status: Acute (5) Schizophrenia Current visit: Yes Status: Chronic (6) Type 2 diabetes mellitus Current visit: No Status: Chronic (7) Dyslipidemia Current visit: Yes Status: Chronic (8) GERD (gastroesophageal reflux disease) Current visit: Yes Status: Chronic (9) IBS (irritable bowel syndrome) Current visit: Yes Status: Chronic (10) Constipation Current visit: No Status: Chronic GI Prophylaxis: Rantidine Resuscitation Status: Do Not Resuscitate Assessment and Plan: -Neurocognitive changes secondary to schizophrenia, acute on chronic. .Agree with admission to [facility] for further psychiatric evaluation and treatment. .Hospitalist service consulted for medical management. .Provide safe and supportive environment. Encourage patient participation in floor activities. -UTI, acute, present on admission. .Patient given Rocephin 1g IV in ED. Initiate Keflex 500mg TID x 7 days for treatment of urinary pathogens. Monitor closely for signs of worsening condition. .Urinary culture pending. -Hypokalemia, acute, present on admission. .Potassium 3.4. Give KCl 20 mEq po now. In light of daily lasix, will initiate KCl 20 mEq po QAM for continual supplementation. .Recheck BMP in AM to monitor electrolytes and renal function. -Dehydration with hypernatremia, acute, present on admission. .Sodium 145 on admission. Encourage oral intake of fluids. Will recheck BMP in AM to monitor electrolytes. -Diabetes, Type 2, chronic. .Continue home metformin. Monitor BGMs in light of acute infection. -Dyslipidemia, chronic. .Continue home simvastatin. Encourage monitoring as outpatient. -GERD, chronic. .Continue home ranitidine. -IBS & Constipation, chronic. .Continue bowel motivation as needed. Upon discharge, patient's care will be returned to her PCP. Sepsis Assessment - Evaluation Sepsis screening result: No Definite Risk Hospital Course Summary Disclaimer: The visit summary below is not to be considered part of the above Progress Note. Hospital Course: 09/24/16 14:26 -Neurocognitive changes secondary to schizophrenia, acute on chronic. .Agree with admission to [facility] for further psychiatric evaluation and treatment. .Hospitalist service consulted for medical management. .Provide safe and supportive environment. Encourage patient participation in floor activities. -UTI, acute, present on admission. .Patient given Rocephin 1g IV in ED. Initiate Keflex 500mg TID x 7 days for treatment of urinary pathogens. Monitor closely for signs of worsening condition. .Urinary culture pending. -Hypokalemia, acute, present on admission. .Potassium 3.4. Give KCl 20 mEq po now. In light of daily lasix, will initiate KCl 20 mEq po QAM for continual supplementation. .Recheck BMP in AM to monitor electrolytes and renal function. -Dehydration with hypernatremia, acute, present on admission. .Sodium 145 on admission. Encourage oral intake of fluids. Will recheck BMP in AM to monitor electrolytes. -Diabetes, Type 2, chronic. .Continue home metformin. Monitor BGMs in light of acute infection. -Dyslipidemia, chronic. .Continue home simvastatin. Encourage monitoring as outpatient. -GERD, chronic. .Continue home ranitidine. -IBS & Constipation, chronic. .Continue bowel motivation as needed. Upon discharge, patient's care will be returned to her PCP.
--- NOTE | 2016-09-24 18:34 | 24 Hour Neuropsychiatic Eval ---
Date of Admission: 09/23/16 20:23 Chief complaint: "I got depressed" History of Present Illness: 70 y/o CF with a hx of Schizophrenia sent from a [facility] for catatonic type behavior. According to [facility] report the pt was doing fairly well until September 22 when she became more withdrawn and then became catatonic where she would not respond to stimuli. PT was also incontinent of bladder at that time. On face to face the pt was seen up and eating supper. She is pleasant on approach. Pt stated "I just got real depressed" but is not able to elaborate. She states she believed someone at the [facility] was trying to hurt her although she now realized this is not true. She reports she feels back near her baseline. Reports no concerns at this time. STRESSORS: Unclear. Pt states she believed someone at the [facility] was trying to harm her. 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 Absent: chills, fever(s), headache(s), night sweats - EENMT Eyes: Absent: blurry vision, photophobia Balance: Absent: falling to one side Nose: Absent: nosebleeds Mouth/Throat: Absent: sore throat, changes in swallowing - Cardiovascular Cardiovascular: Absent: chest pain, palpitations, syncope, dyspnea on exertion Vascular: Absent: pallor of an extermity, pedal edema - Respiratory Respiratory: Absent: cough, dyspnea, hemoptysis, dyspnea on exertion, wheezing, pain on inspiration, chest congestion - Gastrointestinal Gastrointestinal: Absent: abdominal pain, diarrhea, nausea, vomiting - Musculoskeletal Musculoskeletal: Absent: back pain, neck pain - Integumentary/Breasts Integumentary: Absent: lesions, jaundice - Neurological Neurological: Absent: convulsions, headache(s) - Psychiatric Psychiatric: Present: behavioral changes, depression - Endocrine Endocrine: Absent: excessive sweating, palpitations - Hematologic/Lymphatic Hematologic/Lymphatic: Present: easy bruising - Allergic/Immunologic Allergic/Immunologic: Absent: itchy eyes Mental Status Exam Vitals: Last Vital Signs Temp 98.6 F 09/24/16 16:00 Pulse 82 09/24/16 16:00 Resp 16 09/24/16 16:00 BP 101/52 09/24/16 16:00 Pulse Ox 96 09/24/16 16:00 Height: 1.7 m Weight: 67.5 kg - Mental Status Exam Muscle Strength/Tone: Normal Dressing: Casual Grooming: Good Attitude: Cooperative Motor Activity: Retardation Eye Contact: Fair Speech: Slowed Volume: Soft Rhythm: Appropriate Rhythm Orientation: Oriented X4 Mood: Depressed Affect: Flat Rate of Thoughts: Delayed Thought Organization: [place] Associations: Intact Abstract Reasoning: Poor abstract reasoning Thought Content: Delusions Perception/Psychotic: Hx psychosis, not current Fund of Knowledge: Poor fund of knowledge Memory: Grossly Intact Suicidal Ideation: None Homicidal Ideation: None Insight: Poor Judgement: Poor - Laboratory Result Diagrams: 09/23/16 18:30 09/23/16 18:30 Laboratory Results - last 24 hr 09/24/16 06:22 Glucometer 78 Assessment and Plan (1) Schizophrenia Current visit: Yes Status: Acute Will restart home meds. Hospitalist to follow. Pt appears to be doing much better
[2016-09-25] MEDS ORDERED: BISACODYL 10 MG SUPPOSITORY RECTALLY PRN (07:25)
[2016-09-25] MEDS: FUROSEMIDE 20 MG TABLET PO SCH (08:45)
[2016-09-25] MEDS: ClonazePAM 1 MG TABLET PO SCH (08:45)
[2016-09-25] MEDS: METFORMIN 500 MG TABLET PO SCH ×2 (08:45→17:40)
[2016-09-25] MEDS: CALCIUM 500 + VIT D 200 TABLET PO SCH (08:45)
[2016-09-25] MEDS: FOLBIC TABLET PO SCH (08:45)
[2016-09-25] MEDS: RANITIDINE 150 MG TABLET PO SCH (08:45)
[2016-09-25] MEDS: MULTI-VITAMIN PLAIN TABLET PO SCH (08:45)
[2016-09-25] MEDS: RisperiDONE 2 MG TABLET PO SCH ×2 (08:45→20:48)
[2016-09-25] MEDS: BENZTROPINE 1 MG TABLET PO SCH ×2 (08:45→20:49)
[2016-09-25] MEDS: ASCORBIC ACID 500 MG TABLET PO SCH ×2 (08:45→20:48)
--- NOTE | 2016-09-25 18:32 | Neuropsych Progress Note ---
[facility] Subjective Date: 09/25/16 - Sujective/Severity of Illness Medications: Al Hydroxide/Mg Hydroxide (Maalox Plus) 30 ml PO Q4H PRN PRN Reason: PRN orders Last Admin: 09/24/16 18:57 Dose: 30 ml Ascorbic Acid (Vitamin C) 500 mg PO BID [facility] Last Admin: 09/25/16 08:45 Dose: 500 mg Benztropine Mesylate (Cogentin) 1 mg PO BID [facility] Last Admin: 09/25/16 08:45 Dose: 1 mg Bisacodyl (Dulcolax) 10 mg RECTALLY DAILY PRN PRN Reason: Constipation Calcium/Vitamin D (Os Benny-D 500) 1 tab PO DAILY [facility] Last Admin: 09/25/16 08:45 Dose: 1 tab Cephalexin HCl (Keflex) 500 mg PO TID [facility] Last Admin: 09/25/16 15:09 Dose: 500 mg Cholecalciferol (Vit. D-3) 2,000 unit PO DAILY [facility] Last Admin: 09/25/16 08:45 Dose: 2,000 unit Clonazepam (Klonopin) 1 mg PO DAILY [facility] Last Admin: 09/25/16 08:45 Dose: 1 mg Folic Acid (Folbic) 1 tab PO DAILY [facility] Last Admin: 09/25/16 08:45 Dose: 1 tab Furosemide (Lasix) 20 mg PO MOWEFR@08 [facility] Last Admin: 09/25/16 08:45 Dose: 20 mg Magnesium Hydroxide (Mom) 30 ml PO DAILY PRN PRN Reason: Constipation Magnesium Hydroxide (Mom) 30 ml PO DAILY PRN PRN Reason: Constipation Last Admin: 09/24/16 15:53 Dose: 30 ml Metformin HCl (Glucophage) 500 mg PO BIDWM [facility] Last Admin: 09/25/16 17:40 Dose: 500 mg Multivitamins (Theragran) 1 tab PO DAILY [facility] Last Admin: 09/25/16 08:45 Dose: 1 tab Potassium Chloride (K-Dur) 20 meq PO WB [facility] Last Admin: 09/25/16 08:45 Dose: 20 meq Ranitidine HCl (Zantac) 150 mg PO DAILY [facility] Last Admin: 09/25/16 08:45 Dose: 150 mg Risperidone (Risperdal) 4 mg PO BID [facility] Last Admin: 09/25/16 08:45 Dose: 4 mg Senna (Senna Lax) 8.6 mg PO BID PRN PRN Reason: Constipation Simvastatin (Zocor) 20 mg PO HS [facility] Last Admin: 09/24/16 23:34 Dose: Not Given Subjective: Pt seen and chart examined. Nursing reports pt is doing well. Slept 5 hours and has a good appetite. No behaviors noted. On face to face the pt states she is doing well. Alert and oriented x 3. Voices no concerns. Mood stable. Denies S/I or psychosis. Tolerating meds Start Time: 17:30 Stop Time: 17:45 Mental Status Exam Vitals: Last Vital Signs Temp 97.8 F 09/25/16 16:00 Pulse 72 09/25/16 16:00 Resp 18 09/25/16 16:00 BP 129/66 09/25/16 16:00 Pulse Ox 95 09/25/16 16:00 Height: 1.7 m Weight: 67.5 kg - Mental Status Exam Muscle Strength/Tone: Normal Dressing: Casual Grooming: Good Attitude: Cooperative Motor Activity: Retardation Eye Contact: Fair Speech: Slowed Volume: Soft Rhythm: Appropriate Rhythm Orientation: Oriented X4 Mood: Depressed Rate of Thoughts: Delayed Thought Organization: [place] Associations: Intact Abstract Reasoning: Poor abstract reasoning Thought Content: Delusions Perception/Psychotic: Hx psychosis, not current Fund of Knowledge: Poor fund of knowledge Memory: Grossly Intact Suicidal Ideation: None Homicidal Ideation: None Insight: Poor Judgement: Poor - Laboratory Result Diagrams: 09/23/16 18:30 09/25/16 05:18 Laboratory Results - last 24 hr 09/25/16 09/25/16 05:17 05:18 Turbidity < 20 Sodium 138 D Potassium 4.3 D Chloride 107 Carbon Dioxide 26 Anion Gap 5 BUN 20.0 H D Creatinine 0.6 L GFR Calculation 99 BUN/Creatinine Ratio 33 H Glucose 95 Glucometer 92 Calculated Osmolality 269 Calcium 8.6 Icterus Index < 2 Specimen Hemolysis 16 Assessment and Plan (1) Schizophrenia Current visit: Yes Status: Acute Hospital Course Summary Disclaimer: The visit summary below is not to be considered part of the above Progress Note. Hospital Course: 09/24/16 14:26 -Neurocognitive changes secondary to schizophrenia, acute on chronic. .Agree with admission to [facility] for further psychiatric evaluation and treatment. .Hospitalist service consulted for medical management. .Provide safe and supportive environment. Encourage patient participation in floor activities. -UTI, acute, present on admission. .Patient given Rocephin 1g IV in ED. Initiate Keflex 500mg TID x 7 days for treatment of urinary pathogens. Monitor closely for signs of worsening condition. .Urinary culture pending. -Hypokalemia, acute, present on admission. .Potassium 3.4. Give KCl 20 mEq po now. In light of daily lasix, will initiate KCl 20 mEq po QAM for continual supplementation. .Recheck BMP in AM to monitor electrolytes and renal function. -Dehydration with hypernatremia, acute, present on admission. .Sodium 145 on admission. Encourage oral intake of fluids. Will recheck BMP in AM to monitor electrolytes. -Diabetes, Type 2, chronic. .Continue home metformin. Monitor BGMs in light of acute infection. -Dyslipidemia, chronic. .Continue home simvastatin. Encourage monitoring as outpatient. -GERD, chronic. .Continue home ranitidine. -IBS & Constipation, chronic. .Continue bowel motivation as needed. Upon discharge, patient's care will be returned to her PCP. 09/25/16 18:30 Continue current care 09/25/16 18:31 Continue current care
[2016-09-25] MEDS: SIMVASTATIN 20 MG TABLET PO SCH ×2 (20:48→21:46)
[2016-09-26] MEDS: CALCIUM 500 + VIT D 200 TABLET PO SCH (08:39)
[2016-09-26] MEDS: MULTI-VITAMIN PLAIN TABLET PO SCH (08:39)
[2016-09-26] MEDS: ClonazePAM 1 MG TABLET PO SCH (08:40)
[2016-09-26] MEDS: FOLBIC TABLET PO SCH (08:40)
[2016-09-26] MEDS: BENZTROPINE 1 MG TABLET PO SCH ×2 (08:40→20:58)
[2016-09-26] MEDS: ASCORBIC ACID 500 MG TABLET PO SCH ×2 (08:40→20:57)
[2016-09-26] MEDS: METFORMIN 500 MG TABLET PO SCH ×2 (08:40→16:55)
[2016-09-26] MEDS: RisperiDONE 2 MG TABLET PO SCH ×2 (08:40→20:57)
[2016-09-26] MEDS: RANITIDINE 150 MG TABLET PO SCH (08:40)
--- NOTE | 2016-09-26 11:16 | Neuropsych Progress Note ---
[facility] Subjective Date: 09/26/16 - Sujective/Severity of Illness Medications: Al Hydroxide/Mg Hydroxide (Maalox Plus) 30 ml PO Q4H PRN PRN Reason: PRN orders Last Admin: 09/24/16 18:57 Dose: 30 ml Ascorbic Acid (Vitamin C) 500 mg PO BID ON LICENSE OF [facility] Last Admin: 09/26/16 08:40 Dose: 500 mg Benztropine Mesylate (Cogentin) 1 mg PO BID ON LICENSE OF [facility] Last Admin: 09/26/16 08:40 Dose: 1 mg Bisacodyl (Dulcolax) 10 mg RECTALLY DAILY PRN PRN Reason: Constipation Calcium/Vitamin D (Os Benny-D 500) 1 tab PO DAILY ON LICENSE OF [facility] Last Admin: 09/26/16 08:39 Dose: 1 tab Cephalexin HCl (Keflex) 500 mg PO TID ON LICENSE OF [facility] Last Admin: 09/26/16 08:40 Dose: 500 mg Cholecalciferol (Vit. D-3) 2,000 unit PO DAILY ON [facility] OF [facility] Last Admin: 09/26/16 08:40 Dose: 2,000 unit Clonazepam (Klonopin) 1 mg PO DAILY ON [facility] OF [facility] Last Admin: 09/26/16 08:40 Dose: 1 mg Folic Acid (Folbic) 1 tab PO DAILY ON [facility] OF [facility] Last Admin: 09/26/16 08:40 Dose: 1 tab Furosemide (Lasix) 20 mg PO MOWEFR@08 ON LICENSE OF [facility] Last Admin: 09/25/16 08:45 Dose: 20 mg Magnesium Hydroxide (Mom) 30 ml PO DAILY PRN PRN Reason: Constipation Magnesium Hydroxide (Mom) 30 ml PO DAILY PRN PRN Reason: Constipation Last Admin: 09/24/16 15:53 Dose: 30 ml Metformin HCl (Glucophage) 500 mg PO BIDWM ON LICENSE OF [facility] Last Admin: 09/26/16 08:40 Dose: 500 mg Multivitamins (Theragran) 1 tab PO DAILY ON [facility] OF [facility] Last Admin: 09/26/16 08:39 Dose: 1 tab Potassium Chloride (K-Dur) 20 meq PO WB ON LICENSE OF [facility] Last Admin: 09/26/16 08:40 Dose: 20 meq Ranitidine HCl (Zantac) 150 mg PO DAILY ON [facility] OF [facility] Last Admin: 09/26/16 08:40 Dose: 150 mg Risperidone (Risperdal) 4 mg PO BID ON [facility] OF [facility] Last Admin: 09/26/16 08:40 Dose: 4 mg Senna (Senna Lax) 8.6 mg PO BID PRN PRN Reason: Constipation Simvastatin (Zocor) 20 mg PO HS ON LICENSE OF [facility] Last Admin: 09/25/16 21:46 Dose: Not Given Subjective: Pt seen and chart examined. Nursing reports pt is doing well. Sleeping well and has a good appetite. Pt does tend to isolate at times. On face to face the pt states she is doing well. She is alert and oriented x 3. Mood stable. Denies S/I or psychosis. Tolerating meds Start Time: 10:30 Stop Time: 10:45 Mental Status Exam Vitals: Last Vital Signs Temp 97.7 F 09/26/16 08:00 Pulse 85 09/26/16 08:00 Resp 16 09/26/16 08:00 BP 119/65 09/26/16 08:00 Pulse Ox 93 09/26/16 08:00 Height: 1.7 m Weight: 67.5 kg - Mental Status Exam Muscle Strength/Tone: Normal Dressing: Casual Grooming: Good Attitude: Cooperative Motor Activity: Retardation Eye Contact: Fair Speech: Slowed Volume: Soft Rhythm: Appropriate Rhythm Orientation: Oriented X4 Mood: Neutral Rate of Thoughts: Delayed Thought Organization: [place] Associations: Intact Abstract Reasoning: Poor abstract reasoning Thought Content: Normal Perception/Psychotic: Hx psychosis, not current Fund of Knowledge: Poor fund of knowledge Memory: Grossly Intact Suicidal Ideation: None Homicidal Ideation: None Insight: Fair Judgement: Fair - Laboratory Result Diagrams: 09/23/16 18:30 09/25/16 05:18 Assessment and Plan (1) Schizophrenia Current visit: Yes Status: Acute Continue current care Hospital Course Summary Disclaimer: The visit summary below is not to be considered part of the above Progress Note. Hospital Course: 09/24/16 14:26 -Neurocognitive changes secondary to schizophrenia, acute on chronic. .Agree with admission to [facility] for further psychiatric evaluation and treatment. .Hospitalist service consulted for medical management. .Provide safe and supportive environment. Encourage patient participation in floor activities. -UTI, acute, present on admission. .Patient given Rocephin 1g IV in ED. Initiate Keflex 500mg TID x 7 days for treatment of urinary pathogens. Monitor closely for signs of worsening condition. .Urinary culture pending. -Hypokalemia, acute, present on admission. .Potassium 3.4. Give KCl 20 mEq po now. In light of daily lasix, will initiate KCl 20 mEq po QAM for continual supplementation. .Recheck BMP in AM to monitor electrolytes and renal function. -Dehydration with hypernatremia, acute, present on admission. .Sodium 145 on admission. Encourage oral intake of fluids. Will recheck BMP in AM to monitor electrolytes. -Diabetes, Type 2, chronic. .Continue home metformin. Monitor BGMs in light of acute infection. -Dyslipidemia, chronic. .Continue home simvastatin. Encourage monitoring as outpatient. -GERD, chronic. .Continue home ranitidine. -IBS & Constipation, chronic. .Continue bowel motivation as needed. Upon discharge, patient's care will be returned to her PCP. 09/25/16 18:30 Continue current care 09/25/16 18:31 Continue current care 09/26/16 11:16 Continue current care
--- NOTE | 2016-09-26 11:27 | Progress Note ---
Subjective: Cherelle is seen this morning while sitting in her room in a chair under a blanket. She is alert and converses during examination. She denies having pain or shortness of breath. States appetite is good, she is voiding without difficulty and bowels are moving. Objective Vital signs: Temperature 97.7 F 09/26/16 08:00 Pulse Rate 85 09/26/16 08:00 Respiratory Rate 16 09/26/16 08:00 Blood Pressure 119/65 09/26/16 08:00 Pulse Oximetry 93 09/26/16 08:00 Oxygen Delivery Method Room Air Body Mass Index: 23.3 - Constitutional Present: no acute distress - Routine HEENT Exam Head: Present: normocephalic, atraumatic Eye: Present: EOMI, PERRL ENT: Present: mucous membranes moist - Routine Respiratory Exam Present: CTA bilaterally - Routine Cardiovascular Exam Present: RRR, S1, S2, no murmur - Routine Abdominal Exam Present: soft, normoactive bowel sounds, non distended - Routine Extremities Exam Present: full ROM - Routine Back/Spine/Pelvis Exam Back/Spine: Present: full ROM - Routine Skin Exam Present: intact, dry, warm - Routine Neurological Exam Present: alert, CN II-XII intact, moving all extremities - Routine Psychiatric Exam Present: normal affect Results - Labs CBC & Chem 7: 09/23/16 18:30 09/25/16 05:18 Assessment and Plan (1) Type 2 diabetes mellitus Current visit: No Status: Chronic (2) Constipation Current visit: No Status: Chronic (3) GERD (gastroesophageal reflux disease) Current visit: Yes Status: Chronic (4) IBS (irritable bowel syndrome) Current visit: Yes Status: Chronic (5) Dyslipidemia Current visit: Yes Status: Chronic (6) UTI (urinary tract infection) with pyuria Current visit: Yes Status: Acute (7) Neurocognitive disorder Current visit: Yes Status: Acute (8) Schizophrenia Current visit: Yes Status: Chronic (9) Dehydration with hypernatremia Current visit: Yes Status: Acute (10) Hypokalemia Current visit: Yes Status: Acute Assessment and Plan: 09/26/16 schizophrenia- Psychiatric care as per Dr. Lopez Provide safe and supportive environment. Encourage patient participation in floor activities. UTI-Urine culture is positive for Escherichia coli was pansensitive. Continue Keflex for 7 day couse. End date September 30. Hypokalemia- resolved Dehydration with hypernatremia- Resolved Diabetes, Type 2 Continue home metformin. Monitor BGMs Dyslipidemia, chronic. Continue home simvastatin GERD chronic. Continue home ranitidine. IBS & Constipation, chronic. Continue bowel motivation as needed. Sepsis Assessment - Evaluation Sepsis screening result: No Definite Risk Hospital Course Summary Disclaimer: The visit summary below is not to be considered part of the above Progress Note. Hospital Course: 09/24/16 14:26 -Neurocognitive changes secondary to schizophrenia, acute on chronic. .Agree with admission to [facility] for further psychiatric evaluation and treatment. .Hospitalist service consulted for medical management. .Provide safe and supportive environment. Encourage patient participation in floor activities. -UTI, acute, present on admission. .Patient given Rocephin 1g IV in ED. Initiate Keflex 500mg TID x 7 days for treatment of urinary pathogens. Monitor closely for signs of worsening condition. .Urinary culture pending. -Hypokalemia, acute, present on admission. .Potassium 3.4. Give KCl 20 mEq po now. In light of daily lasix, will initiate KCl 20 mEq po QAM for continual supplementation. .Recheck BMP in AM to monitor electrolytes and renal function. -Dehydration with hypernatremia, acute, present on admission. .Sodium 145 on admission. Encourage oral intake of fluids. Will recheck BMP in AM to monitor electrolytes. -Diabetes, Type 2, chronic. .Continue home metformin. Monitor BGMs in light of acute infection. -Dyslipidemia, chronic. .Continue home simvastatin. Encourage monitoring as outpatient. -GERD, chronic. .Continue home ranitidine. -IBS & Constipation, chronic. .Continue bowel motivation as needed. 09/26/16 schizophrenia- Psychiatric care as per Dr. Lopez Provide safe and supportive environment. Encourage patient participation in floor activities. UTI-Urine culture is positive for Escherichia coli was pansensitive. Continue Keflex for 7 day couse. End date September 30. Hypokalemia- resolved Dehydration with hypernatremia- Resolved Diabetes, Type 2 Continue home metformin. Monitor BGMs Dyslipidemia, chronic. Continue home simvastatin GERD chronic. Continue home ranitidine. IBS & Constipation, chronic. Continue bowel motivation as needed.
[2016-09-26] MEDS: SIMVASTATIN 20 MG TABLET PO SCH ×2 (20:57→23:12)
[2016-09-27] MEDS: ClonazePAM 1 MG TABLET PO SCH (08:11)
[2016-09-27] MEDS: RisperiDONE 2 MG TABLET PO SCH ×3 (08:11→23:29)
[2016-09-27] MEDS: FOLBIC TABLET PO SCH (08:11)
[2016-09-27] MEDS: METFORMIN 500 MG TABLET PO SCH ×2 (08:11→17:13)
[2016-09-27] MEDS: MULTI-VITAMIN PLAIN TABLET PO SCH (08:12)
[2016-09-27] MEDS: BENZTROPINE 1 MG TABLET PO SCH ×3 (08:12→23:28)
[2016-09-27] MEDS: CALCIUM 500 + VIT D 200 TABLET PO SCH (08:12)
[2016-09-27] MEDS: ASCORBIC ACID 500 MG TABLET PO SCH ×3 (08:12→23:29)
[2016-09-27] MEDS: RANITIDINE 150 MG TABLET PO SCH (08:12)
--- NOTE | 2016-09-27 11:01 | Neuropsych Progress Note ---
[facility] Subjective Date: 09/27/16 - Sujective/Severity of Illness Medications: Al Hydroxide/Mg Hydroxide (Maalox Plus) 30 ml PO Q4H PRN PRN Reason: PRN orders Last Admin: 09/24/16 18:57 Dose: 30 ml Ascorbic Acid (Vitamin C) 500 mg PO BID [facility] Last Admin: 09/27/16 08:12 Dose: 500 mg Benztropine Mesylate (Cogentin) 1 mg PO BID [facility] Last Admin: 09/27/16 08:12 Dose: 1 mg Bisacodyl (Dulcolax) 10 mg RECTALLY DAILY PRN PRN Reason: Constipation Calcium/Vitamin D (Os Benny-D 500) 1 tab PO DAILY [facility] Last Admin: 09/27/16 08:12 Dose: 1 tab Cephalexin HCl (Keflex) 500 mg PO TID [facility] Last Admin: 09/27/16 08:11 Dose: 500 mg Cholecalciferol (Vit. D-3) 2,000 unit PO DAILY [facility] Last Admin: 09/27/16 08:12 Dose: 2,000 unit Clonazepam (Klonopin) 1 mg PO DAILY [facility] Last Admin: 09/27/16 08:11 Dose: 1 mg Folic Acid (Folbic) 1 tab PO DAILY [facility] Last Admin: 09/27/16 08:11 Dose: 1 tab Furosemide (Lasix) 20 mg PO MOWEFR@08 [facility] Last Admin: 09/25/16 08:45 Dose: 20 mg Magnesium Hydroxide (Mom) 30 ml PO DAILY PRN PRN Reason: Constipation Magnesium Hydroxide (Mom) 30 ml PO DAILY PRN PRN Reason: Constipation Last Admin: 09/24/16 15:53 Dose: 30 ml Metformin HCl (Glucophage) 500 mg PO BIDWM [facility] Last Admin: 09/27/16 08:11 Dose: 500 mg Multivitamins (Theragran) 1 tab PO DAILY [facility] Last Admin: 09/27/16 08:12 Dose: 1 tab Potassium Chloride (K-Dur) 20 meq PO WB [facility] Last Admin: 09/27/16 08:12 Dose: 20 meq Ranitidine HCl (Zantac) 150 mg PO DAILY [facility] Last Admin: 09/27/16 08:12 Dose: 150 mg Risperidone (Risperdal) 4 mg PO BID [facility] Last Admin: 09/27/16 08:11 Dose: 4 mg Senna (Senna Lax) 8.6 mg PO BID PRN PRN Reason: Constipation Simvastatin (Zocor) 20 mg PO HS [facility] Last Admin: 09/26/16 23:12 Dose: Not Given Subjective: Pt seen and chart examined. Nursing reports pt is doing well. Sleeping well and has a good appetite. Pt does tend to isolate at times. On face to face the pt states she is doing well. She denies any S/I or psychosis. Mood stable. Tolerating meds. Voices no concerns at this time Start Time: 10:45 Stop Time: 11:00 Mental Status Exam Vitals: Last Vital Signs Temp 97.7 F 09/27/16 08:00 Pulse 63 09/27/16 08:00 Resp 16 09/27/16 08:00 BP 123/59 09/27/16 08:00 Pulse Ox 95 09/27/16 08:00 Height: 1.7 m Weight: 67.5 kg - Mental Status Exam Muscle Strength/Tone: Normal Dressing: Casual Grooming: Good Attitude: Cooperative Motor Activity: Retardation Eye Contact: Fair Speech: Slowed Volume: Soft Rhythm: Appropriate Rhythm Orientation: Oriented X4 Mood: Neutral Rate of Thoughts: Delayed Thought Organization: [place] Associations: Intact Abstract Reasoning: Poor abstract reasoning Thought Content: Normal Perception/Psychotic: Hx psychosis, not current Fund of Knowledge: Poor fund of knowledge Memory: Grossly Intact Suicidal Ideation: None Homicidal Ideation: None Insight: Fair Judgement: Fair - Laboratory Result Diagrams: 09/23/16 18:30 09/25/16 05:18 Assessment and Plan (1) Schizophrenia Current visit: Yes Status: Acute Continue current care Hospital Course Summary Disclaimer: The visit summary below is not to be considered part of the above Progress Note. Hospital Course: 09/24/16 14:26 -Neurocognitive changes secondary to schizophrenia, acute on chronic. .Agree with admission to [facility] for further psychiatric evaluation and treatment. .Hospitalist service consulted for medical management. .Provide safe and supportive environment. Encourage patient participation in floor activities. -UTI, acute, present on admission. .Patient given Rocephin 1g IV in ED. Initiate Keflex 500mg TID x 7 days for treatment of urinary pathogens. Monitor closely for signs of worsening condition. .Urinary culture pending. -Hypokalemia, acute, present on admission. .Potassium 3.4. Give KCl 20 mEq po now. In light of daily lasix, will initiate KCl 20 mEq po QAM for continual supplementation. .Recheck BMP in AM to monitor electrolytes and renal function. -Dehydration with hypernatremia, acute, present on admission. .Sodium 145 on admission. Encourage oral intake of fluids. Will recheck BMP in AM to monitor electrolytes. -Diabetes, Type 2, chronic. .Continue home metformin. Monitor BGMs in light of acute infection. -Dyslipidemia, chronic. .Continue home simvastatin. Encourage monitoring as outpatient. -GERD, chronic. .Continue home ranitidine. -IBS & Constipation, chronic. .Continue bowel motivation as needed. 09/26/16 schizophrenia- Psychiatric care as per Dr. Lopez Provide safe and supportive environment. Encourage patient participation in floor activities. UTI-Urine culture is positive for Escherichia coli was pansensitive. Continue Keflex for 7 day couse. End date September 30. Hypokalemia- resolved Dehydration with hypernatremia- Resolved Diabetes, Type 2 Continue home metformin. Monitor BGMs Dyslipidemia, chronic. Continue home simvastatin GERD chronic. Continue home ranitidine. IBS & Constipation, chronic. Continue bowel motivation as needed. 09/27/16 11:01 Continue current care
[2016-09-27] MEDS: SIMVASTATIN 20 MG TABLET PO SCH ×2 (19:50→23:30)
[2016-09-28] MEDS: RisperiDONE 2 MG TABLET PO SCH ×2 (08:42→20:18)
[2016-09-28] MEDS: METFORMIN 500 MG TABLET PO SCH ×2 (08:42→17:19)
[2016-09-28] MEDS: ASCORBIC ACID 500 MG TABLET PO SCH ×2 (08:43→20:18)
[2016-09-28] MEDS: RANITIDINE 150 MG TABLET PO SCH (08:43)
[2016-09-28] MEDS: FUROSEMIDE 20 MG TABLET PO SCH (08:43)
[2016-09-28] MEDS: ClonazePAM 1 MG TABLET PO SCH (08:43)
[2016-09-28] MEDS: CALCIUM 500 + VIT D 200 TABLET PO SCH (08:43)
[2016-09-28] MEDS: BENZTROPINE 1 MG TABLET PO SCH ×2 (08:43→20:18)
[2016-09-28] MEDS: MULTI-VITAMIN PLAIN TABLET PO SCH (08:43)
[2016-09-28] MEDS: FOLBIC TABLET PO SCH (13:28)
--- NOTE | 2016-09-28 13:44 | Neuropsych Progress Note ---
[facility] Subjective Date: 09/28/16 - Sujective/Severity of Illness Medications: Al Hydroxide/Mg Hydroxide (Maalox Plus) 30 ml PO Q4H PRN PRN Reason: PRN orders Last Admin: 09/24/16 18:57 Dose: 30 ml Ascorbic Acid (Vitamin C) 500 mg PO BID [facility] Last Admin: 09/28/16 08:43 Dose: 500 mg Benztropine Mesylate (Cogentin) 1 mg PO BID [facility] Last Admin: 09/28/16 08:43 Dose: 1 mg Bisacodyl (Dulcolax) 10 mg RECTALLY DAILY PRN PRN Reason: Constipation Calcium/Vitamin D (Os Benny-D 500) 1 tab PO DAILY [facility] Last Admin: 09/28/16 08:43 Dose: 1 tab Cephalexin HCl (Keflex) 500 mg PO TID [facility] Stop: 10/01/16 14:59 Last Admin: 09/28/16 08:42 Dose: 500 mg Cholecalciferol (Vit. D-3) 2,000 unit PO DAILY [facility] Last Admin: 09/28/16 08:42 Dose: 2,000 unit Clonazepam (Klonopin) 1 mg PO DAILY [facility] Last Admin: 09/28/16 08:43 Dose: 1 mg Folic Acid (Folbic) 1 tab PO DAILY [facility] Last Admin: 09/28/16 13:28 Dose: 1 tab Furosemide (Lasix) 20 mg PO MOWEFR@08 [facility] Last Admin: 09/28/16 08:43 Dose: 20 mg Magnesium Hydroxide (Mom) 30 ml PO DAILY PRN PRN Reason: Constipation Magnesium Hydroxide (Mom) 30 ml PO DAILY PRN PRN Reason: Constipation Last Admin: 09/24/16 15:53 Dose: 30 ml Metformin HCl (Glucophage) 500 mg PO BIDWM [facility] Last Admin: 09/28/16 08:42 Dose: 500 mg Multivitamins (Theragran) 1 tab PO DAILY [facility] Last Admin: 09/28/16 08:43 Dose: 1 tab Potassium Chloride (K-Dur) 20 meq PO WB [facility] Last Admin: 09/28/16 08:42 Dose: 20 meq Ranitidine HCl (Zantac) 150 mg PO DAILY [facility] Last Admin: 09/28/16 08:43 Dose: 150 mg Risperidone (Risperdal) 4 mg PO BID [facility] Last Admin: 09/28/16 08:42 Dose: 4 mg Senna (Senna Lax) 8.6 mg PO BID PRN PRN Reason: Constipation Simvastatin (Zocor) 20 mg PO HS [facility] Last Admin: 09/27/16 23:30 Dose: Not Given Subjective: Patient seen and chart examined. Nursing reports that patient has not had any behavioral problem since admission. She sleeping well and has a good appetite. Patient appears to have negative symptoms mostly. Patient reports that she is doing well and does not have any complaint. She denies any perceptual changes and denies any suicide ideation, intent or plans to hurt herself or some other person. She denies any S/I or psychosis. Mood stable. Tolerating meds. Voices no concerns at this time Start Time: 11:00 Stop Time: 11:20 Mental Status Exam Vitals: Last Vital Signs Temp 97.6 F 09/28/16 08:00 Pulse 69 09/28/16 08:00 Resp 14 09/28/16 08:00 BP 112/60 09/28/16 08:00 Pulse Ox 91 09/28/16 08:00 Height: 1.7 m Weight: 67.5 kg - Mental Status Exam Muscle Strength/Tone: Normal Dressing: Casual Grooming: Good Attitude: Cooperative Motor Activity: Retardation Eye Contact: Fair Speech: Slowed Volume: Soft Rhythm: Appropriate Rhythm Orientation: Oriented X4 Mood: Neutral Affect: Relaxed Rate of Thoughts: Delayed Thought Organization: [place] Associations: Intact Abstract Reasoning: Poor abstract reasoning Thought Content: Normal Perception/Psychotic: Hx psychosis, not current Fund of Knowledge: Poor fund of knowledge Memory: Grossly Intact Suicidal Ideation: None Homicidal Ideation: None Insight: Fair Judgement: Fair - Laboratory Result Diagrams: 09/23/16 18:30 09/28/16 04:44 Laboratory Results - last 24 hr 09/28/16 04:44 Turbidity < 20 Sodium 138 Potassium 4.1 Chloride 105 Carbon Dioxide 27 Anion Gap 6 BUN 18.0 H Creatinine 0.6 L GFR Calculation 99 BUN/Creatinine Ratio 30 H Glucose 93 Calculated Osmolality 268 Calcium 9.0 Icterus Index < 2 Specimen Hemolysis < 15 Assessment and Plan (1) Schizophrenia Current visit: Yes Status: Acute Cont current treatment and look into possible discharge on Wednesday. Hospital Course Summary Disclaimer: The visit summary below is not to be considered part of the above Progress Note. Hospital Course: 09/24/16 14:26 -Neurocognitive changes secondary to schizophrenia, acute on chronic. .Agree with admission to [facility] for further psychiatric evaluation and treatment. .Hospitalist service consulted for medical management. .Provide safe and supportive environment. Encourage patient participation in floor activities. -UTI, acute, present on admission. .Patient given Rocephin 1g IV in ED. Initiate Keflex 500mg TID x 7 days for treatment of urinary pathogens. Monitor closely for signs of worsening condition. .Urinary culture pending. -Hypokalemia, acute, present on admission. .Potassium 3.4. Give KCl 20 mEq po now. In light of daily lasix, will initiate KCl 20 mEq po QAM for continual supplementation. .Recheck BMP in AM to monitor electrolytes and renal function. -Dehydration with hypernatremia, acute, present on admission. .Sodium 145 on admission. Encourage oral intake of fluids. Will recheck BMP in AM to monitor electrolytes. -Diabetes, Type 2, chronic. .Continue home metformin. Monitor BGMs in light of acute infection. -Dyslipidemia, chronic. .Continue home simvastatin. Encourage monitoring as outpatient. -GERD, chronic. .Continue home ranitidine. -IBS & Constipation, chronic. .Continue bowel motivation as needed. 09/26/16 schizophrenia- Psychiatric care as per Dr. Lopez Provide safe and supportive environment. Encourage patient participation in floor activities. UTI-Urine culture is positive for Escherichia coli was pansensitive. Continue Keflex for 7 day couse. End date September 30. Hypokalemia- resolved Dehydration with hypernatremia- Resolved Diabetes, Type 2 Continue home metformin. Monitor BGMs Dyslipidemia, chronic. Continue home simvastatin GERD chronic. Continue home ranitidine. IBS & Constipation, chronic. Continue bowel motivation as needed. 09/27/16 11:01 Continue current care
[2016-09-28] MEDS: SIMVASTATIN 20 MG TABLET PO SCH (20:18)
[2016-09-29] MEDS: RANITIDINE 150 MG TABLET PO SCH (08:07)
[2016-09-29] MEDS: FOLBIC TABLET PO SCH (08:07)
[2016-09-29] MEDS: MULTI-VITAMIN PLAIN TABLET PO SCH (08:07)
[2016-09-29] MEDS: BENZTROPINE 1 MG TABLET PO SCH ×2 (08:07→22:10)
[2016-09-29] MEDS: RisperiDONE 2 MG TABLET PO SCH ×2 (08:07→22:10)
[2016-09-29] MEDS: CALCIUM 500 + VIT D 200 TABLET PO SCH (08:07)
[2016-09-29] MEDS: ClonazePAM 1 MG TABLET PO SCH (08:07)
[2016-09-29] MEDS: ASCORBIC ACID 500 MG TABLET PO SCH ×2 (08:07→22:10)
[2016-09-29] MEDS: METFORMIN 500 MG TABLET PO SCH ×2 (08:08→17:14)
--- NOTE | 2016-09-29 13:15 | Discharge Instructions ---
Discharge Plan - Med Rec/Dispo Referrals/Follow Up: Mayra Gayle APRN [Other] (Mayra Gayle APRN will see patient on rounds at the facility for Mental Health follow-up. ) Kirk Ward APRN [Advanced Practice Nurse] - (Kirk Ward APRN on 10/08/16 at 1:30 pm for Hosp. follow-up. [address] [address] ) Additional Instructions: Reasons for Admission: Catatonic symptoms Discharge Diagnosis:Schizophrenia IN CASE OF PSYCHIATRIC EMERGENCY, CONTACT [facility] STAFF AT [phone] ( available 24 hrs daily). Prescriptions: New CephALEXin [Keflex] 500 mg PO TID capsule Potassium Chloride ER Tab [K-Dur] 20 meq PO WB tablet Ranitidine [Zantac] 150 mg PO DAILY tablet RisperiDONE [RisperDAL] 4 mg PO BID tablet Continue clonazePAM [Clonazepam] 1 mg PO DAILY #0 Milk of Magnesia [Mom] 30 ml PO DAILY PRN PRN Reason: Constipation Furosemide [Lasix] 20 mg PO MOWEFR@08 Cholecalciferol (Vitamin D3) [Vitamin D3] 2,000 unit PO DAILY Benztropine [Cogentin] 1 mg PO BID Sennosides [Senna Lax] 8.6 mg PO BID PRN PRN Reason: Constipation Vit B12/Folic Acida/Pyridoxine [Folbic] 1 tab PO DAILY Simvastatin 20 mg PO HS Ascorbate Calcium [Vitamin C] 500 mg PO BID Calcium 500 + D [Os Benny-D 500] 1 tab PO DAILY Multivitamin [Multivitamins] 1 tab PO DAILY Metformin [Glucophage] 500 mg PO BIDWM Mag Hydrox/Aluminum Hyd/Simeth [Maalox Advanced Suspension] 30 ml PO Q4H PRN PRN Reason: Prn Orders No Action raNITIdine HCl [Ranitidine HCl] 150 mg PO DAILY #0 risperiDONE [Risperidone] 4 mg PO BID #0 Guaifenesin Oral Liq [Robitussin] 5 ml PO Q6HR PRN PRN Reason: Cough Loratadine [Claritin] 10 mg PO DAILY PRN PRN Reason: Allergy Symptoms Acetaminophen Supp [Tylenol Supp] 650 mg OR Q5H PRN supp PRN Reason: Pain Acetaminophen 650 mg PO Q4H PRN PRN Reason: Pain ClonazePAM [Klonopin] 1 mg PO DAILY PRN PRN Reason: Prn Orders Docusate Sodium [Colace] 200 mg PO BID #0 Quetiapine Fumarate [Seroquel] 100 mg PO BID - Disposition 04 To [facility] Home/Facility
--- NOTE | 2016-09-29 13:21 | Extended Care Facility Orders ---
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 SNF inpatient care is necessary for the following reasons - Additional Information Referrals: Mayra Gayle APRN [Other] (Mayra Gayle APRN will see patient on rounds at the facility for Mental Health follow-up. ) Kirk Ward APRN [Advanced Practice Nurse] - (Kirk Ward APRN on 10/08/16 at 1:30 pm for Hosp. follow-up. [address] [address] )
--- NOTE | 2016-09-29 14:02 | Progress Note ---
Subjective: Cherelle is seen today in follow up for her catatonic symptoms and schizophrenia. She is seen while sitting in the day room, watching TV. She denies any complaints and has a pleasant disposition. No chest pain, shortness of breath, abdominal pain, nausea, vomiting or dysuria. She is excited about returning home tomorrow and has no concerns. Her appetite has been good and her bowels are moving. Objective Vital signs: Temperature 97.1 F 09/29/16 07:23 Pulse Rate 73 09/29/16 07:23 Respiratory Rate 18 09/29/16 07:23 Blood Pressure 120/52 09/29/16 07:23 Pulse Oximetry 100 09/29/16 07:23 Oxygen Delivery Method Room Air Weight: 147 lb 14.883 oz - Constitutional Present: no acute distress, well nourished, well developed, cooperative Comments: smiles on exam - Routine HEENT Exam Head: Present: normocephalic, atraumatic Eye: Present: PERRL. Absent: conjunctival icterus, scleral injection ENT: Present: mucous membranes moist - Routine Respiratory Exam Present: CTA bilaterally. Absent: rhonchi, stridor, wheezes - Routine Cardiovascular Exam Present: RRR, S1, S2 - Routine Abdominal Exam Present: soft, normoactive bowel sounds, non distended, non tender - Routine Extremities Exam Present: edema (trace), non tender, full ROM. Absent: calf tenderness - Routine Back/Spine/Pelvis Exam Back/Spine: Present: full ROM. Absent: vertebral tenderness - Routine Musculoskeletal Exam Musculoskeletal: Present: moving extremities well - Routine Skin Exam Present: intact, dry, warm. Absent: jaundice - Routine Neurological Exam Present: alert, moving all extremities, hearing grossly intact, normal speech - Routine Psychiatric Exam Present: normal affect, cooperative Results - Labs CBC & Chem 7: 09/23/16 18:30 09/28/16 04:44 Assessment and Plan (1) UTI (urinary tract infection) with pyuria Current visit: Yes Status: Acute (2) Neurocognitive disorder Current visit: Yes Status: Acute (3) Hypokalemia Current visit: Yes Status: Acute (4) Dehydration with hypernatremia Current visit: Yes Status: Acute (5) Schizophrenia Current visit: Yes Status: Chronic (6) Type 2 diabetes mellitus Current visit: No Status: Chronic (7) Dyslipidemia Current visit: Yes Status: Chronic (8) GERD (gastroesophageal reflux disease) Current visit: Yes Status: Chronic (9) IBS (irritable bowel syndrome) Current visit: Yes Status: Chronic (10) Constipation Current visit: No Status: Chronic Assessment and Plan: 09/26/16 schizophrenia- Psychiatric care as per Dr. Lopez Provide safe and supportive environment. Encourage patient participation in floor activities. UTI-Urine culture is positive for Escherichia coli was pansensitive. Continue Keflex for 7 day couse. End date September 30. Diabetes, Type 2 Continue home metformin. Monitor BGMs Dyslipidemia, chronic. Continue home simvastatin GERD chronic. Continue home ranitidine. IBS & Constipation, chronic. Continue bowel motivation as needed. Anticipate discharge on 09/30/16. Medically stable and doing well. Sepsis Assessment - Evaluation Sepsis screening result: No Definite Risk Hospital Course Summary Disclaimer: The visit summary below is not to be considered part of the above Progress Note. Hospital Course: 09/24/16 14:26 -Neurocognitive changes secondary to schizophrenia, acute on chronic. .Agree with admission to [facility] for further psychiatric evaluation and treatment. .Hospitalist service consulted for medical management. .Provide safe and supportive environment. Encourage patient participation in floor activities. -UTI, acute, present on admission. .Patient given Rocephin 1g IV in ED. Initiate Keflex 500mg TID x 7 days for treatment of urinary pathogens. Monitor closely for signs of worsening condition. .Urinary culture pending. -Hypokalemia, acute, present on admission. .Potassium 3.4. Give KCl 20 mEq po now. In light of daily lasix, will initiate KCl 20 mEq po QAM for continual supplementation. .Recheck BMP in AM to monitor electrolytes and renal function. -Dehydration with hypernatremia, acute, present on admission. .Sodium 145 on admission. Encourage oral intake of fluids. Will recheck BMP in AM to monitor electrolytes. -Diabetes, Type 2, chronic. .Continue home metformin. Monitor BGMs in light of acute infection. -Dyslipidemia, chronic. .Continue home simvastatin. Encourage monitoring as outpatient. -GERD, chronic. .Continue home ranitidine. -IBS & Constipation, chronic. .Continue bowel motivation as needed. 09/26/16 schizophrenia- Psychiatric care as per Dr. Lopez Provide safe and supportive environment. Encourage patient participation in floor activities. UTI-Urine culture is positive for Escherichia coli was pansensitive. Continue Keflex for 7 day couse. End date September 30. Hypokalemia- resolved Dehydration with hypernatremia- Resolved Diabetes, Type 2 Continue home metformin. Monitor BGMs Dyslipidemia, chronic. Continue home simvastatin GERD chronic. Continue home ranitidine. IBS & Constipation, chronic. Continue bowel motivation as needed. 09/27/16 11:01 Continue current care
--- NOTE | 2016-09-29 15:50 | Neuropsych Progress Note ---
[facility] Subjective Date: 09/29/16 - Sujective/Severity of Illness Medications: Al Hydroxide/Mg Hydroxide (Maalox Plus) 30 ml PO Q4H PRN PRN Reason: PRN orders Last Admin: 09/24/16 18:57 Dose: 30 ml Ascorbic Acid (Vitamin C) 500 mg PO BID [facility] Last Admin: 09/29/16 08:07 Dose: 500 mg Benztropine Mesylate (Cogentin) 1 mg PO BID [facility] Last Admin: 09/29/16 08:07 Dose: 1 mg Bisacodyl (Dulcolax) 10 mg RECTALLY DAILY PRN PRN Reason: Constipation Calcium/Vitamin D (Os Benny-D 500) 1 tab PO DAILY [facility] Last Admin: 09/29/16 08:07 Dose: 1 tab Cephalexin HCl (Keflex) 500 mg PO TID [facility] Stop: 10/01/16 14:59 Last Admin: 09/29/16 14:28 Dose: 500 mg Cholecalciferol (Vit. D-3) 2,000 unit PO DAILY [facility] Last Admin: 09/29/16 08:07 Dose: 2,000 unit Clonazepam (Klonopin) 1 mg PO DAILY [facility] Last Admin: 09/29/16 08:07 Dose: 1 mg Folic Acid (Folbic) 1 tab PO DAILY [facility] Last Admin: 09/29/16 08:07 Dose: 1 tab Furosemide (Lasix) 20 mg PO MOWEFR@08 [facility] Last Admin: 09/28/16 08:43 Dose: 20 mg Magnesium Hydroxide (Mom) 30 ml PO DAILY PRN PRN Reason: Constipation Magnesium Hydroxide (Mom) 30 ml PO DAILY PRN PRN Reason: Constipation Last Admin: 09/24/16 15:53 Dose: 30 ml Metformin HCl (Glucophage) 500 mg PO BIDWM [facility] Last Admin: 09/29/16 08:08 Dose: 500 mg Multivitamins (Theragran) 1 tab PO DAILY [facility] Last Admin: 09/29/16 08:07 Dose: 1 tab Potassium Chloride (K-Dur) 20 meq PO WB [facility] Last Admin: 09/29/16 08:07 Dose: 20 meq Ranitidine HCl (Zantac) 150 mg PO DAILY [facility] Last Admin: 09/29/16 08:07 Dose: 150 mg Risperidone (Risperdal) 4 mg PO BID [facility] Last Admin: 09/29/16 08:07 Dose: 4 mg Senna (Senna Lax) 8.6 mg PO BID PRN PRN Reason: Constipation Simvastatin (Zocor) 20 mg PO HS [facility] Last Admin: 09/28/16 20:18 Dose: 20 mg Subjective: Patient seen and chart examined. Nursing reports that patient has not had any behavioral problem since admission. She is sleeping well and has good appetite. She was seen watching TV and appears to be in good mood. She feels ready to be discharged . She denies any perceptual changes and denies any suicide ideation, intent or plans to hurt herself or some other person. The plan will be for discharge back to the facility Start Time: 12:30 Stop Time: 12:45 Mental Status Exam Vitals: Last Vital Signs Temp 97.1 F 09/29/16 07:23 Pulse 73 09/29/16 07:23 Resp 18 09/29/16 07:23 BP 120/52 09/29/16 07:23 Pulse Ox 100 09/29/16 07:23 Height: 1.7 m Weight: 67.1 kg - Mental Status Exam Muscle Strength/Tone: Normal Dressing: Casual Grooming: Good Attitude: Cooperative Motor Activity: Normal Eye Contact: Fair Speech: Slowed Volume: Soft Rhythm: Appropriate Rhythm Orientation: Oriented X4 Mood: Neutral Affect: Relaxed Rate of Thoughts: Delayed Thought Organization: [place] Associations: Intact Abstract Reasoning: Poor abstract reasoning Thought Content: Normal Perception/Psychotic: Hx psychosis, not current Fund of Knowledge: Poor fund of knowledge Memory: Grossly Intact Suicidal Ideation: None Homicidal Ideation: None Insight: Limited Judgement: Limited Impulse Control: Fair - Laboratory Result Diagrams: 09/23/16 18:30 09/28/16 04:44 Assessment and Plan (1) Schizophrenia Current visit: Yes Status: Acute Discharge patient on Wednesday09/30/16. She will follow up with facility's psychiatrist. Discussed the benefit of changing patient's abode to a place where she likes. Hospital Course Summary Disclaimer: The visit summary below is not to be considered part of the above Progress Note. Hospital Course: 09/24/16 14:26 -Neurocognitive changes secondary to schizophrenia, acute on chronic. .Agree with admission to [facility] for further psychiatric evaluation and treatment. .Hospitalist service consulted for medical management. .Provide safe and supportive environment. Encourage patient participation in floor activities. -UTI, acute, present on admission. .Patient given Rocephin 1g IV in ED. Initiate Keflex 500mg TID x 7 days for treatment of urinary pathogens. Monitor closely for signs of worsening condition. .Urinary culture pending. -Hypokalemia, acute, present on admission. .Potassium 3.4. Give KCl 20 mEq po now. In light of daily lasix, will initiate KCl 20 mEq po QAM for continual supplementation. .Recheck BMP in AM to monitor electrolytes and renal function. -Dehydration with hypernatremia, acute, present on admission. .Sodium 145 on admission. Encourage oral intake of fluids. Will recheck BMP in AM to monitor electrolytes. -Diabetes, Type 2, chronic. .Continue home metformin. Monitor BGMs in light of acute infection. -Dyslipidemia, chronic. .Continue home simvastatin. Encourage monitoring as outpatient. -GERD, chronic. .Continue home ranitidine. -IBS & Constipation, chronic. .Continue bowel motivation as needed. 09/26/16 schizophrenia- Psychiatric care as per Dr. Lopez Provide safe and supportive environment. Encourage patient participation in floor activities. UTI-Urine culture is positive for Escherichia coli was pansensitive. Continue Keflex for 7 day couse. End date September 30. Hypokalemia- resolved Dehydration with hypernatremia- Resolved Diabetes, Type 2 Continue home metformin. Monitor BGMs Dyslipidemia, chronic. Continue home simvastatin GERD chronic. Continue home ranitidine. IBS & Constipation, chronic. Continue bowel motivation as needed. 09/27/16 11:01 Continue current care
[2016-09-29 21:29] VITALS: RESP 20
[2016-09-29] MEDS: SIMVASTATIN 20 MG TABLET PO SCH (22:10)
[2016-09-30] MEDS: SIMVASTATIN 20 MG TABLET PO SCH ×2 (01:03→01:17)
[2016-09-30] MEDS: BENZTROPINE 1 MG TABLET PO SCH ×2 (01:03→08:25)
[2016-09-30] MEDS: RisperiDONE 2 MG TABLET PO SCH ×2 (01:04→08:27)
[2016-09-30] MEDS: ASCORBIC ACID 500 MG TABLET PO SCH ×2 (01:04→08:27)
[2016-09-30 08:20] VITALS: BP 124/86; PULSE 85; TEMP 97.4; O2SAT 95
[2016-09-30] MEDS: FUROSEMIDE 20 MG TABLET PO SCH (08:24)
[2016-09-30] MEDS: METFORMIN 500 MG TABLET PO SCH (08:24)
[2016-09-30] MEDS: FOLBIC TABLET PO SCH (08:25)
[2016-09-30] MEDS: ClonazePAM 1 MG TABLET PO SCH (08:26)
[2016-09-30] MEDS: CALCIUM 500 + VIT D 200 TABLET PO SCH (08:26)
[2016-09-30] MEDS: RANITIDINE 150 MG TABLET PO SCH (08:27)
[2016-09-30] MEDS: MULTI-VITAMIN PLAIN TABLET PO SCH (08:27)
--- NOTE | 2016-09-30 09:34 | Discharge Summary ---
Discharge Plan - Med Rec/Dispo Referrals/Follow Up: Mayra Gayle APRN [Other] (Mayra Gayle APRN will see patient on rounds at the facility for Mental Health follow-up. ) Kirk Ward APRN [Advanced Practice Nurse] - (Kirk Ward APRN on 10/08/16 at 1:30 pm for Hosp. follow-up. [address] [id number] ) Additional Instructions: Reasons for Admission: Catatonic symptoms Discharge Diagnosis:Schizophrenia IN CASE OF PSYCHIATRIC EMERGENCY, CONTACT [facility] AT [phone] ( available 24 hrs daily). Diagnosed with E. coli UTI and completed 7-day course of Keflex on 09/30/16. Please recheck UA and monitor for fever and/or urinary symptoms. Started on KDur 20 mEq daily for admission K of 3.4. Recheck BMP on 10/02/16 to see if KDur will still be needed. Prescriptions: New Potassium Chloride ER Tab [K-Dur] 20 meq PO WB tablet Ranitidine [Zantac] 150 mg PO DAILY tablet RisperiDONE [RisperDAL] 4 mg PO BID tablet Continue clonazePAM [Clonazepam] 1 mg PO DAILY #0 Milk of Magnesia [Mom] 30 ml PO DAILY PRN PRN Reason: Constipation Furosemide [Lasix] 20 mg PO MOWEFR@08 Cholecalciferol (Vitamin D3) [Vitamin D3] 2,000 unit PO DAILY Benztropine [Cogentin] 1 mg PO BID Sennosides [Senna Lax] 8.6 mg PO BID PRN PRN Reason: Constipation Vit B12/Folic Acida/Pyridoxine [Folbic] 1 tab PO DAILY Simvastatin 20 mg PO HS Ascorbate Calcium [Vitamin C] 500 mg PO BID Calcium 500 + D [Os Benny-D 500] 1 tab PO DAILY Multivitamin [Multivitamins] 1 tab PO DAILY Metformin [Glucophage] 500 mg PO BIDWM Mag Hydrox/Aluminum Hyd/Simeth [Maalox Advanced Suspension] 30 ml PO Q4H PRN PRN Reason: Prn Orders No Action raNITIdine HCl [Ranitidine HCl] 150 mg PO DAILY #0 risperiDONE [Risperidone] 4 mg PO BID #0 Guaifenesin Oral Liq [Robitussin] 5 ml PO Q6HR PRN PRN Reason: Cough Loratadine [Claritin] 10 mg PO DAILY PRN PRN Reason: Allergy Symptoms Acetaminophen Supp [Tylenol Supp] 650 mg [place] Q5H PRN supp PRN Reason: Pain Acetaminophen 650 mg PO Q4H PRN PRN Reason: Pain ClonazePAM [Klonopin] 1 mg PO DAILY PRN PRN Reason: Prn Orders Docusate Sodium [Colace] 200 mg PO BID #0 Quetiapine Fumarate [Seroquel] 100 mg PO BID - Disposition 04 To [facility] Home/Facility
--- NOTE | 2016-10-02 15:15 | Neuropsychiatric Disch Summary ---
Discharge Information Date of admission: 09/23/16 20:23 Anticipated date of discharge: 09/30/16 Attending Physician: Chacho Licona MD Primary care physician: Everette Mclean Consults: 09/24/16 08:34 Physician [Physician Consult] [CONS] Routine Consulting Provider: Fernie Torres Reason For Exam: medical management Ordering Provider has Notified Jack Frame Tender: Yes - Discharge Diagnosis (1) Schizophrenia Status: Acute - Laboratory Labs: 09/28/16 04:44 Date of Admission: 09/23/16 20:23 History of Present Illness: HPI by Dr. Daily 70 y/o CF with a hx of Schizophrenia sent from a [facility] for catatonic type behavior. According to [facility] report the pt was doing fairly well until September 22 when she became more withdrawn and then became catatonic where she would not respond to stimuli. PT was also incontinent of bladder at that time. On face to face the pt was seen up and eating supper. She is pleasant on approach. Pt stated "I just got real depressed" but is not able to elaborate. She states she believed someone at the [facility] was trying to hurt her although she now realized this is not true. She reports she feels back near her baseline. Reports no concerns at this time. STRESSORS: Unclear. Pt states she believed someone at the [facility] was trying to harm her. Hospital Course This is a general summary of the patient's hospital course. For more details refer to the complete medical record. Hospital course: Patient was admitted to the [facility] on 09/23/16 and based on the information provided by the facility and clinical observation, she was diagnosed with relapse Schizophrenia. She endorsed negative symptoms of diagnosis. She was poorly motivated and often isolated during the hospital stay. Patient was noted to have UTI based on the UA provided in the ER and she was given Rocephin 1gm in the ER. She also received Cephalexin in the unit. The medical team followed patient throughout her hospital stay. Patient was re-started on her home medications and she tolerated the medication without any notable side effect. Throughout the hospital stay, patient did not have any self harming behavior. She had good appetite and was sleeping well. Prior to discharge, patient denied any SI, intent or plan to hurt herself or some other person. She denied any AH/VH. She was discharged back to the [facility] Discharge Plan - Med Rec/Dispo Referrals/Follow Up: Mayra Gayle APRN [Other] (Mayra Gayle APRN will see patient on rounds at the facility for Mental Health follow-up. ) Kirk Ward APRN [Advanced Practice Nurse] - (Kirk Ward APRN on 10/08/16 at 1:30 pm for Hosp. follow-up. [address] [id number] ) Additional Instructions: Reasons for Admission: Catatonic symptoms Discharge Diagnosis:Schizophrenia IN CASE OF PSYCHIATRIC EMERGENCY, CONTACT [facility] AT [phone] ( available 24 hrs daily). Diagnosed with E. coli UTI and completed 7-day course of Keflex on 09/30/16. Please recheck UA and monitor for fever and/or urinary symptoms. Started on KDur 20 mEq daily for admission K of 3.4. Recheck BMP on 10/02/16 to see if KDur will still be needed. Prescriptions: New Potassium Chloride ER Tab [K-Dur] 20 meq PO WB tablet Ranitidine [Zantac] 150 mg PO DAILY tablet RisperiDONE [RisperDAL] 4 mg PO BID tablet Continue clonazePAM [Clonazepam] 1 mg PO DAILY #0 Milk of Magnesia [Mom] 30 ml PO DAILY PRN PRN Reason: Constipation Furosemide [Lasix] 20 mg PO MOWEFR@08 Cholecalciferol (Vitamin D3) [Vitamin D3] 2,000 unit PO DAILY Benztropine [Cogentin] 1 mg PO BID Sennosides [Senna Lax] 8.6 mg PO BID PRN PRN Reason: Constipation Vit B12/Folic Acida/Pyridoxine [Folbic] 1 tab PO DAILY Simvastatin 20 mg PO HS Ascorbate Calcium [Vitamin C] 500 mg PO BID Calcium 500 + D [Os Benny-D 500] 1 tab PO DAILY Multivitamin [Multivitamins] 1 tab PO DAILY Metformin [Glucophage] 500 mg PO BIDWM Mag Hydrox/Aluminum Hyd/Simeth [Maalox Advanced Suspension] 30 ml PO Q4H PRN PRN Reason: Prn Orders No Action raNITIdine HCl [Ranitidine HCl] 150 mg PO DAILY #0 risperiDONE [Risperidone] 4 mg PO BID #0 Guaifenesin Oral Liq [Robitussin] 5 ml PO Q6HR PRN PRN Reason: Cough Loratadine [Claritin] 10 mg PO DAILY PRN PRN Reason: Allergy Symptoms Acetaminophen Supp [Tylenol Supp] 650 mg [place] Q5H PRN supp PRN Reason: Pain Acetaminophen 650 mg PO Q4H PRN PRN Reason: Pain ClonazePAM [Klonopin] 1 mg PO DAILY PRN PRN Reason: Prn Orders Docusate Sodium [Colace] 200 mg PO BID #0 Quetiapine Fumarate [Seroquel] 100 mg PO BID - Disposition 04 To [facility] Home/Facility
== END 2016-09-30 15:50 | DRG 885 ==
LOC: ED 17:30 → GEN 20:23
PROVIDERS: ADMIT Psychiatry & Neurology Psychiatry; ATTEND Psychiatry & Neurology Psychiatry